=== PATIENT | male | born 1945 | race African-American/Black ===

== ENCOUNTER 2025-04-18 07:52 | Inpatient (IN) | payer MEDICARE, MEDICAID ==
[~2025-04-18] VITALS: Ht 175.3 cm; Wt 61.7 kg
--- NOTE | 2025-04-18 08:19 | ED.PDOC ---
History of Present Illness HPI Comments 79-year-old male with a history of diabetes, hypertension, COPD, any prior stroke, was brought in by emergency services with a chief complaint of generalized weakness, with the associated lightheadedness. EMS states that patient's daughter called emergency services due to patient being more confused than normal. EMS notes the patient was alert oriented x3, but normal baseline is alert oriented x4 prompting the visit to the ED. emergency services also notes with blood sugar on route was 129. Patient denies any nausea, vomiting, diarrhea, chest pain, abdominal pain, or any other associated symptoms, modifiers at this time. Chief Complaint: General Weakness Time Seen by MD: 08:16 Reviewed Notes: Nurses Notes, Medications, Allergies Allergies: Coded Allergies: NO KNOWN ALLERGIES (Unverified , 04/18/25) Information Source: Patient Mode of Arrival: EMS Severity: Moderate Timing: Hours Duration: Since onset, Hours Prehospital treatment: None Past Medical History PAST MEDICAL HISTORY: COPD, CVA, DM, HTN Family History Family History: Reviewed,noncontributory to illness Social History Smoker: Non-Smoker Alcohol: Denies ETOH Use Drugs: Denies Drug Use Lives In: Home Constitutional: denies: chills, diaphoresis, fatigue, fever, malaise, sweats, weakness, others EENTM: denies: blurred vision, double vision, ear bleeding, ear discharge, ear drainage, ear pain, ear ringing, eye pain, eye redness, hearing loss, mouth pain, mouth swelling, nasal discharge, nose bleeding, nose congestion, nose pain, photophobia, tearing, throat pain, throat swelling, voice changes, others Respiratory: denies: cough, hemoptysis, orthopnea, SOB at rest, shortness of breath, SOB with excertion, stridor, wheezing, others Cardiovascular: denies: chest pain, dizzy spells, diaphoresis, Dyspnea on exertion, edema, irregular heart beat, left arm pain, lightheadedness, palpitations, PND, syncope, others Gastrointestinal: denies: abdomen distended, abdominal pain, blood streaked bowels, constipated, diarrhea, dysphagia, difficulty swallowing, hematemesis, melena, nausea, poor appetite, poor fluid intake, rectal bleeding, rectal pain, vomiting, others Genitourinary: denies: burning, dysuria, flank pain, frequency, hematuria, incontinence, penile discharge, penile sore, pain, testicle pain, testicle swelling, urgency, others Neurological: denies: dizziness, fainting, headache, left sided numbness, left sided weakness, numbness, paresthesia, pre-existing deficit, right sided numbness, right sided weakness, seizure, speech problems, tingling, tremors, weakness, others Musculoskeletal: denies: back pain, gout, joint pain, joint swelling, muscle pain, muscle stiffness, neck pain, others Integumetry: denies: bruises, change in color, change in hair/nails, dryness, laceration, lesions, lumps, rash, wounds, others Allergic/Immunocompromised: denies: Difficulty Healing, Frequent Infections, Hi ves, Itching, others Hematologic/Lymphatic: denies: anemia, blood clots, easy bleeding, easy bruising, swollen glands, others Endocrine: denies: excessive hunger, excessive sweating, excessive thirst, excessive urination, flushing, intolerance to cold, intolerance to heat, unexplained weight gain, unexplained weight loss, others Psychiatric: denies: anxiety, bipolar disorder, depression, hopeless, panic disorder, schizophrenia, sleepless, suicidal, others All Other Systems: Reviewed and Negative Physical Exam General Appearance: Moderate Distress, Normal HEENT: Normal ENT Inspection, Pharynx Normal, TMs Normal Neck: Full Range of Motion, Non-Tender, Normal, Normal Inspection Respiratory: Chest Non-Tender, Lungs Clear, No Accessory Muscle Use, No Respiratory Distress, Normal Breath Sounds Cardiovascular: No Edema, No JVD, No Murmur, No Gallop, Normal Peripheral Pulses, Regular Rate/Rhythm Breast Exam: Deferred Gastrointestinal: No Organomegaly, Non Tender, No Pulsatile Mass, Normal Bowel Sounds, Soft Genitalia: Deferred Pelvic: Deferred Rectal: Deferred Extremities: No calf tenderness, Normal capillary refill, Non-tender, No pedal edema, Other (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 Was a procedure done?: No Differential Dx Considerations may include: Anemia Electrolyte imbalance X-Ray, Labs, Meds, VS Vital Signs Date Time Temp Pulse Resp B/P (MAP) Pulse Ox O2 Delivery O2 Flow Rate FiO2 04/18/25 08:02 98.3 90 16 125/72 99 98.3 04/18/25 07:52 90 Patient alert. Came in because of generalized weakness dizziness. Vitals stable. Answering all questions. Possible TIA. Possibly will need MRI. Establish intravenous access. Was given fluids. EKG reviewed does not show any acute changes. Explained to the patient. Continue monitoring. PATIENT: EVANGELIST MISTRY ACCT: [id number] UNIT: [id number] : 1945 LOC: ER ROOM / BED: / AGE / SEX: 79 / M ADM STATUS: REG ER SERVICE 5 ORDERING PHYSICIAN: ZOHREH BARRON MD PROCEDURE(s): CXRP - CHEST PORTABLE REASON: sob ORDER NUMBER(s): [id number], ACCESSION NUMBER(s): [id number] EXAM: XY CHEST PORTABLE HISTORY: sob COMPARISON: None TECHNIQUE: Portable AP view of the chest was performed. FINDINGS: No pneumothorax, consolidative infiltrates, or pulmonary edema. There is blunting of the left costophrenic angle. The heart is borderline enlarged. The aortic arch is calcific. There is lower thoracic dextroscoliosis. There is at least 1 old left rib fracture. IMPRESSION: Blunting of the left costophrenic angle may be due to scarring or small pleural effusion. The lungs are otherwise clear. Time of 1ST Reevaluation: 08:46 Reevaluation 1ST: Unchanged Patient Education/Counseling: Diagnosis, Treatment, Need For Follow Up Family Education/Counseling: No Family Present SEPSIS Sepsis Screen Date sepsis recognized/suspect: Apr 18, 2025 Time Sepsis recognized/suspect: 0752 Recent Procedure: No On Antibiotic Therapy: No Respiratory Rate >20: No Heart Rate >90: No Temp<36 C (96.8 F) or >38.3 C: No SBP <90 or MAP <65 mmHG: No New Acute Mental Status Change: No Is the patient on CPAP, BIPAP,: No Physician Orders Troponin-I Hs (04/18/25 08:16) Complete Blood Count (04/18/25 08:16) Chest Portable (04/18/25 08:16) Urinalysis (04/18/25 08:16) Basic Metabolic Panel (04/18/25 08:16) Sodium Chloride 0.9% (04/18/25 08:30) Electrocardigram (04/18/25 08:46) Vital Signs Date Time Temp Pulse Resp B/P (MAP) Pulse Ox O2 Delivery O2 Flow Rate FiO2 04/18/25 08:02 98.3 90 16 125/72 99 98.3 04/18/25 07:52 90 Departure 1 Departure Time of Disposition: 08:58 Impression: Primary Impression: TIA (transient ischemic attack) Additional Impressions: Generalized weakness Autonomic disorder Disposition: ADMITTED INPATIENT Admit to: Med Surg Condition: Guarded Critical Care Note Critical Care Time?: No Stability Stability form required: No Heart Score Heart Score: Heart Score Response (Comments) Value History Slightly Suspicious 0 EKG Normal 0 Age >65 2 Risk Factors >3 or Hx ASHD 2 Troponin Normal limit 0 Total 4 I personally scribed for ZOHREH BARRON MD ([email or web address]) on 04/18/25 at 08:19. Electronically submitted by Ramin Paniagua ([email or web address]). I personally scribed for ZOHREH BARRON MD ([email or web address]) on 04/18/25 at 09:20. E lectronically submitted by Ramin Paniagua ([email or web address]). ZOHREH BARRON MD Apr 18, 2025 08:19
[2025-04-18] MEDS: SODIUM CHLORIDE 0.9% 1,000 ML IV ONE (08:30)
--- NOTE | 2025-04-18 09:06 | DVH ---
EXAM: XY CHEST PORTABLE HISTORY: sob COMPARISON: None TECHNIQUE: Portable AP view of the chest was performed. FINDINGS: No pneumothorax, consolidative infiltrates, or pulmonary edema. There is blunting of the left costoph renic angle. The heart is borderline enlarged. The aortic arch is calcific. There is lower thoracic d extroscoliosis. There is at least 1 old left rib fracture. IMPRESSION: Blunting of the left costophrenic angle may be due to scarring or small pleural effusion. The lungs are otherwise clear.
[2025-04-18 10:43] LABS: Hematocrit 26.0 % (41.0-53.0); Hemoglobin 8.0 g/dL (13.5-17.5); Mean Corpuscular Hemoglobin 25.6 pg (28.0-32.0); Mean Corpuscular Volume 82.8 fL (80.0-100.0); Nucleated Red Blood Cells % 0.0 %
[2025-04-18 10:47] LABS: Potassium 5.1 mmol/L (3.5-5.1); Sodium 144 mmol/L (136-145)
[2025-04-18 10:48] LABS: Anion Gap 13 (5-15); Calcium 9.8 mg/dL (8.7-10.4); Carbon Dioxide 24 mmol/L (20-31)
[2025-04-18 10:53] LABS: BUN/Creatinine Ratio 22.8 (10.0-20.0); Glucose 102 mg/dL (74-106)
[2025-04-18 11:03] LABS: Blood Urea Nitrogen 46 mg/dL (9-23); Chloride 107 mmol/L (98-107)
--- NOTE | 2025-04-18 12:25 | DVH ---
EXAM: CT HEAD WITHOUT CONTRAST INDICATION: weakness with aloc TECHNIQUE: CT of the head without intravenous contrast. Radiation Dose : 1. Head: CT Dose: CTDI volume is 56.36 mGy. Dose-length product is 998.18 mGy*cm The dose indicators for CT are the volume Computed Tomography (CT) Dose Index (CTDIvol) and the Dose Length Product (DLP), and are measured in units of mGy and mGy-cm, respectively. These indicators are not patient dose, but values generated from the CT scanner acquisition factors. The report includes radiation exposure data for exposures received during this examination. COMPARISON: None FINDINGS: There is no evidence of acute intracranial hemorrhage, extra-axial collection, mass effect, midline s hift, herniation or hydrocephalus. The ventricles, sulci and cisterns are age appropriate. The potter-white differentiation is intact. Patchy periventricular and subcortical white matter hypoattenuation is nonspecific but may be related to small vessel ischemic disease. The visualized paranasal sinuses and mastoid air cells are clear. The surrounding soft tissues and osseous structures are unremarkable. Chronic appearing deformity of the right lateral calvarium possibly from prior trauma. IMPRESSION: No acute intracranial abnormality. Radiation optimization: All CT scans at this facility use at least one of these dose optimization marilin hniques: automated exposure control mA and/or kV adjustment per patient size (includes targeted exam s where dose is matched to clinical indication) or iterative reconstruction.
[2025-04-18] MEDS ORDERED: APIX5TAB PO (14:12)
[2025-04-18] MEDS ORDERED: OMEP1CAP70 PO (14:12)
[2025-04-18] MEDS ORDERED: LOSA-534 PO (14:12)
[2025-04-18] MEDS ORDERED: DEXTROSE (50%) 50ML SYRG IV PRN (14:15)
[2025-04-18] MEDS ORDERED: ONDANSETRON HCL 4 MG/2 ML VIAL IV PRN (14:15)
--- NOTE | 2025-04-18 14:22 | DVHHP2 ---
History of Present Illness Reason for Visit: Generalized weakness History of Present Illness Serjio Dietz is an 79-year-old male with past medical history of COPD, CVA, diabetes, hypertension, right BKA, and ex tobacco use who presents to the ED with generalized weakness and lightheadedness. Patient reports that he was at home and EMS was called for assistance. Patient reports that he is on home oxygen 4.5L nasal cannula continuously. Upon examination patient is in a wheelchair in his currently on 3 L nasal cannula. Patient also reports that he is compliant with his medications. He reports that he uses a front wheel walker. Patient denies any recent trauma or injury, recent travels, recent ingestion of spoiled food, recent sick contacts, chest pain, shortness of breath, fever, chills, dizziness, abdominal pain, nausea, vomiting, diarrhea, or urinary symptoms. Cardiovascular: HTN Pulmonary: COPD PORTFOLIO SPECIALIST: CVA Endocrine: Diabetes Past Surgical History: Other (Right BKA) Smoke: Quit ALCOHOL: none Drugs: None Lives: with Family Domestic Violence: Neg Review of Systems Constitutional: Yes: Weakness Allergies: Coded Allergies: NO KNOWN ALLERGIES (Unverified , 04/18/25) Medications Current Medications Medications Dose Ordered Sig/Randall Route Start Time Stop Time Status Last Admin Dose Admin Ondansetron HCl 4 mg Q4HP PRN IV 04/18/25 14:15 UNV Acetaminophen 650 mg Q6HP PRN PO 04/18/25 14:15 UNV Diagnostic Test (Pha) 1 strip ACHS 04/18/25 17:00 UNV Insulin Human Regular ACHS SC 04/18/25 17:00 UNV Dextrose 50 ml UD PRN IV 04/18/25 14:15 UNV Furosemide 40 mg DAILY IV 04/18/25 14:15 UNV Apixaban 5 mg BID PO 04/18/25 22:00 UNV Patient Own Medication 1 cap DAILY PO 04/19/25 10:00 UNV Exam Vital Signs Vital Signs Date Time Temp Pulse Resp B/P (MAP) Pulse Ox O2 Delivery O2 Flow Rate FiO2 04/18/25 08:02 98.3 90 16 125/72 99 98.3 General Appearance: Alert, Oriented X3, Cooperative, No acute distress HEENT: Atraumatic, PERRLA, EOMI Respiratory: Normal air movement Cardiovascular: Regular rate, Normal S1, Normal S2, No murmurs Abdominal: Normal bowel sounds, Soft Extremities: Other (Right BKA) Skin: No significant lesion Neuro: Normal speech, Normal tone, Sensation intact Psych/Mental Status: Mental status NL, Mood NL Labs/Xrays Labs Test 04/18/25 10:25 Range/Units White Blood Count 8.7 4.4-10.8 10^3/uL Red Blood Count 3.14 L 4.5-5.90 10^6/uL Hemoglobin 8.0 L 13.5-17.5 g/dL Hematocrit 26.0 L 41.0-53.0 % Mean Corpuscular Volume 82.8 80.0-100.0 fL Mean Corpuscular Hemoglobin 25.6 L 28.0-32.0 pg Mean Corpuscular Hemoglobin Concent 30.9 L 32.0-36.0 g/dL Red Cell Distribution Width 18.2 H 11.8-14.3 % Platelet Count 396 140-450 10^3/uL Mean Platelet Volume 7.3 6.9-10.8 fL Neutrophils (%) (Auto) 66.5 37.0-80.0 % Lymphocytes (%) (Auto) 16.5 10.0-50.0 % Monocytes (%) (Auto) 9.6 0.0-12.0 % Eosinophils (%) (Auto) 6.7 0.0-7.0 % Basophils (%) (Auto) 0.7 0.0-2.0 % Neutrophils # (Auto) 5.8 1.6-8.6 10 ^3/uL Lymphocytes # (Auto) 1.4 0.4-5.4 10 ^3/uL Monocytes # (Auto) 0.8 0-1.3 10 ^3/uL Eosinophils # (Auto) 0.6 0-0.8 10 ^3/uL Basophils # (Auto) 0.1 0-0.2 10 ^3/uL Nucleated Red Blood Cells 0.0 % Sodium Level 144 136-145 mmol/L Potassium Level 5.1 3.5-5.1 mmol/L Chloride Level 107 98-107 mmol/L Carbon Dioxide Level 24 20-31 mmol/L Anion Gap 13 5-15 Blood Urea Nitrogen 46 H 9-23 mg/dL Creatinine 2.02 H 0.700-1.30 mg/dL Glomerular Filtration Rate Calc 33 >90 mL/min BUN/Creatinine Ratio 22.8 H 10.0-20.0 Serum Glucose 102 74-106 mg/dL Calcium Level 9.8 8.7-10.4 mg/dL Troponin I High Sensitivity 25 </=54 ng/L EXAM: CT HEAD WITHOUT CONTRAST INDICATION: weakness with aloc TECHNIQUE: CT of the head without intravenous contrast. Radiation Dose : 1. Head: CT Dose: CTDI volume is 56.36 mGy. Dose-length product is 998.18 mGy*cm The dose indicators for CT are the volume Computed Tomography (CT) Dose Index (CTDIvol) and the Dose Length Product (DLP), and are measured in units of mGy and mGy-cm, respectively. These indicators are not patient dose, but values generated from the CT scanner acquisition factors. The report includes radiation exposure data for exposures received during this examination. COMPARISON: None FINDINGS: There is no evidence of acute intracranial hemorrhage, extra-axial collection, mass effect, midline shift, herniation or hydrocephalus. The ventricles, sulci and cisterns are age appropriate. The potter-white differentiation is intact. Patchy periventricular and subcortical white matter hypoattenuation is nonspecific but may be related to small vessel ischemic disease. The visualized paranasal sinuses and mastoid air cells are clear. The surrounding soft tissues and osseous structures are unremarkable. Chronic appearing deformity of the right lateral calvarium possibly from prior trauma. IMPRESSION: No acute intracranial abnormality. EXAM: XY CHEST PORTABLE HISTORY: sob COMPARISON: None TECHNIQUE: Portable AP view of the chest was performed. FINDINGS: No pneumothorax, consolidative infiltrates, or pulmonary edema. There is blunting of the left costophrenic angle. The heart is borderline enlarged. The aortic arch is calcific. There is lower thoracic dextroscoliosis. There is at least 1 old left rib fracture. IMPRESSION: Blunting of the left costophrenic angle may be due to scarring or small pleural effusion. The lungs are otherwise clear. SEPSIS Sepsis Screen Date sepsis recognized/suspect: Apr 18, 2025 Time Sepsis recognized/suspect: 0752 Recent Procedure: No On Antibiotic Therapy: No Respiratory Rate >20: No Heart Rate >90: No Temp<36 C (96.8 F) or >38.3 C: No SBP <90 or MAP <65 mmHG: No New Acute Mental Status Change: No Is the patient on CPAP, BIPAP,: No Physician Orders Chest Portable (04/18/25 08:16) Urinalysis (04/18/25 08:16) Electrocardigram (04/18/25 08:46) Head Without Contrast (04/18/25 11:37) Admit (04/18/25 14:07) Allergies (04/18/25 14:07) Code Status (04/18/25 14:07) Oxygen Per Hour (04/18/25 14:07) Ondansetron Hcl (Zofran) (04/18/25 14:15) Complete Blood Count (04/19/25 04:00) Comprehensive Metabolic Panel (04/19/25 04:00) Cardiac Diet-2gna,Lofat,Lochol (04/18/25 Dinner) Acetaminophen Tablet (Tylenol Tablet) (04/18/25 14:15) Sequential Compression Device (04/18/25 ) Glucose Blood (Accu-Chek Comfort Curve T (04/18/25 17:00) Insulin R (Human) (Insulin R) (04/18/25 17:00) Dextrose 50% Syringe (04/18/25 14:15) Hemoglobin A1c (04/18/25 14:07) Furosemide Injection (Lasix Injection) (04/18/25 14:15) Apixaban (Eliquis) (04/18/25 22:00) (Nf) Omeprazole (Omeprazole Dr) (04/19/25 10:00) Vital Signs Date Time Temp Pulse Resp B/P (MAP) Pulse Ox O2 Delivery O2 Flow Rate FiO2 04/18/25 08:02 98.3 90 16 125/72 99 98.3 04/18/25 07:52 90 Laboratory Tests Test 04/18/25 10:25 White Blood Count 8.7 10^3/uL (4.4-10.8) Assessment/Plan Assessment/Plan Assessment Generalized weakness likely due to anemia ANGEL Acute hypoxic respiratory failure History of COPD History of CVA History of diabetes History of hypertension History of right BKA Ex tobacco use Plan Admit to [facility] Supportive oxygen Type and screen Transfuse PRBCs for hemoglobin less than 7.0 Iron panel Reticulocyte count Haptoglobin [place] test - direct and indirect Hemoglobin A1c ISS and Accu-Cheks CT head noted UA NS 1 L given in ED EKG UA Chest x-ray noted Troponin noted Diet Home medications reconciled DVT prophylaxis-patient on Eliquis PUD prophylaxis-not indicated no history of GERD or GI bleed Discussed plan of care with patient and nurse Counseled patient on continuance of cessation of tobacco use [id number] Behavior change smoking greater than 10 minutes about use of other options also gave option of nicotine patch [id number] Preventive counseling healthy eating habits, physical activity, and regular checkups Plan discussed with: Patient My Orders Orders - VALENTINA NÚÑEZ Procedure Category Date Status Time Head Without Contrast CT 04/18/25 Resulted 11:37 Admit ADMIT 04/18/25 Transmitted 14:07 Allergies NINA 04/18/25 In Process 14:07 Code Status CODE 04/18/25 Transmitted 14:07 Oxygen Per Hour RT 04/18/25 Transmitted 14:07 Ondansetron Hcl PHA 04/18/25 Logged (Zofran) 14:15 Complete Blood Count LAB 04/19/25 Verified 04:00 Comprehensive LAB 04/19/25 Verified Metabolic Panel 04:00 Cardiac DIET 04/18/25 Transmitted Diet-2gna,Lofat,Lochol Dinner Acetaminophen Tablet PHA 04/18/25 Logged (Tylenol Tablet) 14:15 Sequential NINA 04/18/25 In Process Compression Device Glucose Blood PHA 04/18/25 Logged (Accu-Chek Comfort 17:00 Insulin R (Human) PHA 04/18/25 Logged (Insulin R) 17:00 Dextrose 50% Syringe PHA 04/18/25 Logged 14:15 Hemoglobin A1c LAB 04/18/25 Logged 14:07 Furosemide Injection PHA 04/18/25 Logged (Lasix Injection) 14:15 Apixaban (Eliquis) PHA 04/18/25 Logged 22:00 (Nf) Omeprazole PHA 04/19/25 Logged (Omeprazole Dr) 10:00 Date of Service: Apr 18, 2025 Billing Provider: VALENTINA NÚÑEZ Common Visit Codes: 56488-JAGLQJA INP/OBS CARE (HIGH) Secondary Visit Codes: [id number] COUNSELING IND, 48904-FSUJP CHNG SMOKING >10MIN VALENTINA NÚÑEZ Apr 18, 2025 14:22
[2025-04-18 16:07] VITALS: PULSE 86; RESP 16; O2SAT 96
[2025-04-18 16:26] VITALS: BP 126/79; PULSE 78; PULSE 79; RESP 18; TEMP 97.9; O2SAT 96
[2025-04-18 17:00] VITALS: BP 121/84; PULSE 94; RESP 17; TEMP 97.3; O2SAT 95
[2025-04-18] MEDS: InsuLIN REG 1unit/0.01ml Soln (100units/ml) SC SCH (17:00)
[2025-04-18] MEDS: ACCU-CHEK COMFORT CURVE STRIP VI SCH (17:18)
[2025-04-18 18:30] LABS: Iron 16.0 ug/dL (65-175)
[2025-04-18 18:31] LABS: Total Iron Binding Capacity 421.0 ug/dL (250-425)
[2025-04-18 20:00] VITALS: PULSE 97; RESP 18; O2SAT 99
[2025-04-18 21:00] VITALS: BP 152/77; PULSE 97; RESP 15; TEMP 97.6; O2SAT 99
[2025-04-18] MEDS: APIXABAN 5 MG TAB PO SCH (22:00)
[2025-04-19] VITALS (9 sets, daily range): BP systolic 116–140; BP diastolic 47–67; PULSE 65–100; RESP 14–18; TEMP 97.5–98.6; O2SAT 90–100
[2025-04-19 00:43] LABS: Urine Protein, UAD Negative (Negative)
[2025-04-19 06:11] LABS: Hematocrit 24.6 % (41.0-53.0); Hemoglobin 7.8 g/dL (13.5-17.5); Mean Corpuscular Hemoglobin 25.9 pg (28.0-32.0); Mean Corpuscular Volume 81.5 fL (80.0-100.0); Nucleated Red Blood Cells % 0.1 %
[2025-04-19 06:17] LABS: Alanine Aminotransferase 14 U/L (7-40); Alkaline Phosphatase 62 U/L (46-116); Anion Gap 13 (5-15); BUN/Creatinine Ratio 20.3 (10.0-20.0); Calcium 9.9 mg/dL (8.7-10.4); Carbon Dioxide 24 mmol/L (20-31); Chloride 106 mmol/L (98-107); Glucose 98 mg/dL (74-106); Potassium 4.3 mmol/L (3.5-5.1); Sodium 143 mmol/L (136-145); Total Protein 8.0 g/dL (5.7-8.2)
[2025-04-19 06:18] LABS: Albumin 4.8 g/dL (3.2-4.8); Bilirubin, Total 0.2 mg/dL (0.2-1.0); Blood Urea Nitrogen 31 mg/dL (9-23)
[2025-04-19] MEDS: PANTOPRAZOLE 40 MG TAB PO SCH (08:49)
[2025-04-19] MEDS: FUROSEMIDE 40 MG/4 ML VIAL IV SCH (08:51)
[2025-04-19] MEDS: DOCUSATE SOD 100 MG CAP PO ONE (16:46)
--- NOTE | 2025-04-19 18:51 | DVHPN2 ---
Subjective As per sitter at bedside patient was earlier awake alert oriented. Currently patient just woke up he does not know where he is. 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 Medications Current Medications Medications Dose Ordered Sig/Randall Route Start Time Stop Time Status Last Admin Dose Admin Ondansetron HCl 4 mg Q4HP PRN IV 04/18/25 14:15 Acetaminophen 650 mg Q6HP PRN PO 04/18/25 14:15 Diagnostic Test (Pha) 1 strip ACHS 04/18/25 17:00 04/19/25 16:47 1 STRIP Insulin Human Regular ACHS SC 04/18/25 17:00 Dextrose 50 ml UD PRN IV 04/18/25 14:15 Furosemide 40 mg DAILY IV 04/18/25 14:15 Apixaban 5 mg BID PO 04/18/25 22:00 04/19/25 08:49 5 MG Pantoprazole Sodium 40 mg DAILY PO 04/19/25 10:00 04/19/25 08:49 40 MG Docusate Sodium 100 mg BID PO 04/19/25 22:00 Laboratory Results Laboratory Tests 04/19/25 05:19 Chemistry Test 04/19/25 05:19 Albumin 4.8 g/dL (3.2-4.8) Calcium Level 9.9 mg/dL (8.7-10.4) Total Protein 8.0 g/dL (5.7-8.2) LFT Test 04/19/25 05:19 Alanine Aminotransferase (ALT) 14 U/L (7-40) Alkaline Phosphatase 62 U/L (46-116) Aspartate Amino Transferase (AST) 20 U/L (13-40) Total Bilirubin 0.2 mg/dL (0.2-1.0) Urinalysis Test 04/18/25 23:59 Urine Color Colorless (Yellow) Urine Clarity Clear (Clear) Urine pH 5.0 (5.0-9.0) Urine Specific [place] 1.015 (1.001-1.035) Urine Protein Negative (Negative) Urine Ketones Negative (Negative) Urine Blood Negative /uL (Negative) Urine Nitrite Negative (Negative) Urine Bilirubin Negative (Negative) Urine Urobilinogen Normal mg/dL (Negative) Urine Leukocyte Esterase 2+ /uL (Negative) Urine RBC 1 /hpf (0 - 3) Urine Microscopic WBC 18 /HPF (0-3) H Urine Squamous Epithelial Cells Few /hpf (<5) Urine Bacteria Many /hpf (None Seen) H Urine Hyaline Casts Few /lpf (0 - 2) Urine Mucus Few (None Seen) Urine Glucose Normal mg/dL (Normal) Assessment/Plan Assessment/Plan 79-year-old male with a known history of chronic respiratory failure on home O2, history of CVA, diabetes type 2, hypertension, history of right BKA presented to the hospital with a generalized weakness and altered mental status found to have 1. Generalized weakness 2. Acute delirium ruled out early cognitive decline 3. Acute on chronic hypoxic respiratory failure 4. COPD 5. History of CVA 6. Diabetes mellitus type 2 7. Hypertension 8. Chronic tobacco use disorder by history -continue [facility], physical therapy evaluation and treatment, social worker clinical for home health home safety evaluation upon discharge. Plan discussed with: Patient, Other (Patient's bedside RN.) My Orders Orders - REN WAGNER MD Procedure Category Date Status Time Docusate Sodium PHA 04/19/25 In Process Capsule (Colace 22:00 Date of Service: Apr 19, 2025 Billing Provider: REN WAGNER MD Common Visit Codes: [id number] INP/OBS CARE(MOD) REN WAGNER MD Apr 19, 2025 18:51
[2025-04-19] MEDS: DOCUSATE SOD 100 MG CAP PO SCH (20:44)
[2025-04-19] MEDS: ALBUTEROL SULF 2.5 MG/0.5ML(0.5%) NEB SOLN NEB SCH (22:17)
[2025-04-19] MEDS: IPRATROPIUM BROM 0.5 MG/2.5ML INH SOL NEB SCH (22:18)
[2025-04-20] VITALS (18 sets, daily range): BP systolic 111–133; BP diastolic 40–59; PULSE 64–93; RESP 16–18; TEMP 97.7–98.6; O2SAT 93–100
[2025-04-20] MEDS: ACETAMINOPHEN 325 MG TAB PO PRN (04:51)
--- NOTE | 2025-04-20 12:59 | DVHPN2 ---
Subjective Vision daughter is at bedside. As per her patient is a little bit more alert but not at his baseline yet. 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 Medications Current Medications Medications Dose Ordered Sig/Randall Route Start Time Stop Time Status Last Admin Dose Admin Ondansetron HCl 4 mg Q4HP PRN IV 04/18/25 14:15 Acetaminophen 650 mg Q6HP PRN PO 04/18/25 14:15 04/20/25 04:51 650 MG Diagnostic Test (Pha) 1 strip ACHS 04/18/25 17:00 04/20/25 11:31 1 STRIP Insulin Human Regular ACHS SC 04/18/25 17:00 Dextrose 50 ml UD PRN IV 04/18/25 14:15 Furosemide 40 mg DAILY IV 04/18/25 14:15 Apixaban 5 mg BID PO 04/18/25 22:00 04/20/25 09:08 5 MG Pantoprazole Sodium 40 mg DAILY PO 04/19/25 10:00 04/20/25 09:08 40 MG Docusate Sodium 100 mg BID PO 04/19/25 22:00 04/20/25 09:08 100 MG Albuterol 2.5 mg Q4HWA NEB 04/19/25 22:00 04/20/25 09:28 2.5 MG Ipratropium [place] 0.5 mg Q4HWA NEB 04/19/25 22:00 04/20/25 09:28 0.5 MG Laboratory Results Laboratory Tests 04/19/25 05:19 Urinalysis Test 04/18/25 23:59 Urine Color Colorless (Yellow) Urine Clarity Clear (Clear) Urine pH 5.0 (5.0-9.0) Urine Specific [place] 1.015 (1.001-1.035) Urine Protein Negative (Negative) Urine Ketones Negative (Negative) Urine Blood Negative /uL (Negative) Urine Nitrite Negative (Negative) Urine Bilirubin Negative (Negative) Urine Urobilinogen Normal mg/dL (Negative) Urine Leukocyte Esterase 2+ /uL (Negative) Urine RBC 1 /hpf (0 - 3) Urine Microscopic WBC 18 /HPF (0-3) H Urine Squamous Epithelial Cells Few /hpf (<5) Urine Bacteria Many /hpf (None Seen) H Urine Hyaline Casts Few /lpf (0 - 2) Urine Mucus Few (None Seen) Urine Glucose Normal mg/dL (Normal) Assessment/Plan Assessment/Plan 79-year-old male with a known history of chronic respiratory failure on home O2, history of CVA, diabetes type 2, hypertension, history of right BKA presented to the hospital with a generalized weakness and altered mental status found to have 1. Generalized weakness 2. Acute delirium ruled out early cognitive decline 3. Acute on chronic hypoxic respiratory failure 4. COPD 5. History of CVA 6. Diabetes mellitus type 2 7. Hypertension 8. Chronic tobacco use disorder by history 9. 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 -p.o. antibiotics for urinary tract infection. Plan discussed with: Patient, Daughter My Orders Orders - REN WAGNER MD Procedure Category Date Status Time Docusate Sodium PHA 04/19/25 In Process Capsule (Colace 22:00 Albuterol Medneb PHA 04/19/25 In Process (Ventolin Medneb) 22:00 Ipratropium Medneb PHA 04/19/25 In Process (Atrovent Medneb) 22:00 * Pharmacy Tech Customer Service CONS 04/20/25 Transmitted Consult Date of Service: Apr 20, 2025 Billing Provider: REN WAGNER MD Common Visit Codes: [id number] INP/OBS CARE(MOD) REN WAGNER MD Apr 20, 2025 12:59
[2025-04-20] MEDS: CEPHALEXIN 250 MG CAP PO SCH (14:26)
[2025-04-21] VITALS (16 sets, daily range): BP systolic 99–135; BP diastolic 46–68; PULSE 68–106; RESP 12–20; TEMP 97.3–98.2; O2SAT 90–100
--- NOTE | 2025-04-21 08:20 | ECG ---
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
[2025-04-21] MEDS: FUROSEMIDE 40 MG TAB PO SCH (09:31)
[2025-04-21] MEDS ORDERED: CIPR-273 PO (15:56)
--- NOTE | 2025-04-21 15:57 | DVHDS2 ---
Discharge Summary Date of Admission Apr 18, 2025 at 14:07 Date of Discharge: Apr 22, 2025 Labs/Diagnostic Data: Laboratory Results Test 04/21/25 10:48 04/19/25 05:19 04/18/25 23:59 04/18/25 15:42 POC Glucose 157 mg/dl (70-106) White Blood Count 7.4 10^3/uL (4.4-10.8) Red Blood Count 3.01 10^6/uL (4.5-5.90) Hemoglobin 7.8 g/dL (13.5-17.5) Hematocrit 24.6 % (41.0-53.0) Mean Corpuscular Volume 81.5 fL (80.0-100.0) Mean Corpuscular Hemoglobin 25.9 pg (28.0-32.0) Mean Corpuscular Hemoglobin Concent 31.7 g/dL (32.0-36.0) Red Cell Distribution Width 17.8 % (11.8-14.3) Platelet Count 401 10^3/uL (140-450) Mean Platelet Volume 7.2 fL (6.9-10.8) Neutrophils (%) (Auto) 64.5 % (37.0-80.0) Lymphocytes (%) (Auto) 17.8 % (10.0-50.0) Monocytes (%) (Auto) 10.2 % (0.0-12.0) Eosinophils (%) (Auto) 6.6 % (0.0-7.0) Basophils (%) (Auto) 0.9 % (0.0-2.0) Neutrophils # (Auto) 4.8 10 ^3/uL (1.6-8.6) Lymphocytes # (Auto) 1.3 10 ^3/uL (0.4-5.4) Monocytes # (Auto) 0.8 10 ^3/uL (0-1.3) Eosinophils # (Auto) 0.5 10 ^3/uL (0-0.8) Basophils # (Auto) 0.1 10 ^3/uL (0-0.2) Nucleated Red Blood Cells 0.1 % Sodium Level 143 mmol/L (136-145) Potassium Level 4.3 mmol/L (3.5-5.1) Chloride Level 106 mmol/L (98-107) Carbon Dioxide Level 24 mmol/L (20-31) Anion Gap 13 (5-15) Blood Urea Nitrogen 31 mg/dL (9-23) Creatinine 1.53 mg/dL (0.700-1.30) Glomerular Filtration Rate Calc 46 mL/min (>90) BUN/Creatinine Ratio 20.3 (10.0-20.0) Serum Glucose 98 mg/dL (74-106) Calcium Level 9.9 mg/dL (8.7-10.4) Total Bilirubin 0.2 mg/dL (0.2-1.0) Aspartate Amino Transferase (AST) 20 U/L (13-40) Alanine Aminotransferase (ALT) 14 U/L (7-40) Alkaline Phosphatase 62 U/L (46-116) Total Protein 8.0 g/dL (5.7-8.2) Albumin 4.8 g/dL (3.2-4.8) Urine Color Colorless (Yellow) Urine Clarity Clear (Clear) Urine pH 5.0 (5.0-9.0) Urine Specific [place] 1.015 (1.001-1.035) Urine Protein Negative (Negative) Urine Ketones Negative (Negative) Urine Blood Negative /uL (Negative) Urine Nitrite Negative (Negative) Urine Bilirubin Negative (Negative) Urine Urobilinogen Normal mg/dL (Negative) Urine Leukocyte Esterase 2+ /uL (Negative) Urine RBC 1 /hpf (0 - 3) Urine Microscopic WBC 18 /HPF (0-3) Urine Squamous Epithelial Cells Few /hpf (<5) Urine Bacteria Many /hpf (None Seen) Urine Hyaline Casts Few /lpf (0 - 2) Urine Mucus Few (None Seen) Urine Glucose Normal mg/dL (Normal) Reticulocyte Count (auto) 1.05 % (0.5-1.5) Iron Level 16 ug/dL (65-175) Total Iron Binding Capacity 421 ug/dL (250-425) Percent Iron Saturation 3.8 % (20-55) Test 04/18/25 10:25 Hemoglobin A1c 5.6 % A1C (<5.7) Troponin I High Sensitivity 25 ng/L (</=54) Other Laboratory Tests 04/19/25 05:19 Brief Hx & Hospital Course: Serjio Dietz is an 79-year-old male with past medical history of COPD, CVA, diabetes, hypertension, right BKA, and ex tobacco use who presents to the ED with generalized weakness and lightheadedness. Patient reports that he was at home and EMS was called for assistance. Patient reports that he is on home oxygen 4.5L nasal cannula continuously. Upon examination patient is in a wheelchair in his currently on 3 L nasal cannula. Patient also reports that he is compliant with his medications. He reports that he uses a front wheel walker. Patient denies any recent trauma or injury, recent travels, recent ingestion of spoiled food, recent sick contacts, chest pain, shortness of breath, fever, chills, dizziness, abdominal pain, nausea, vomiting, diarrhea, or urinary symptoms. He is admitted and received empiric treatment with the IV antibiotics hydration and physical therapy. Patient's urinalysis showed a possible UTI felt causing his symptoms. His urine cultures showed mixed yudy. Patient remained afebrile. White cell count is normal. Patient's symptoms have improved. Therefore it is felt he could be safely discharged home. Patient is advised to continue the medications per his discharge med rec list and have a close follow up with his PCP. I have talked with the patient/family members/daughter regarding patient's hospital diagnosis, treatment he received, discharge medications including but not limited to side effects, discharge instructions and and follow-up plan of care. They have verbalized understanding of this and agree with the care plan as outlined. Condition at Discharge: Stable Final Diagnosis/Problems List 1. Generalized weakness 2. Acute delirium ruled out early cognitive decline 3. Acute on chronic hypoxic respiratory failure 4. COPD 5. History of CVA 6. Diabetes mellitus type 2 7. Hypertension 8. Chronic tobacco use disorder by history 9. Urinary tract infection Discharge Disposition: Home Discharge Instruct/Medications Diet: Consistent carbohydrate, Cardiac 2g Na,low cholest Activity: No Restrictions, As Tolerated Follow Up/Referral: Your primary care physician next week and to follow up for urinary tract infection with a repeat urine cultures Medications: Finish the antibiotic as prescribed and other home medications per discharge med reconciliation list Scheduled Apixaban Base (Eliquis), 1 TAB PO BID, (Reported) Ciprofloxacin Hcl (Cipro), 250 MG PO BID Losartan Potassium (Losartan Potassium), 1 TAB PO DAILY, (Reported) Omeprazole (Omeprazole Dr), 1 CAP PO DAILY, (Reported) Discharge Statement: "Patient was advised to return to the ER or call 911 if any headaches, dizziness, shortness of breath, chest pain, abdominal pain, bleeding, fevers, or worsening of medical condition. Patient was counseled about treatment plan, medications, possible side effects, patientverbalized understanding. All questions were answered to the best of my ability. This discharge took greater then 30 minutes in planning, reviewing documentation, counseling the patient, and discussing with other team members." ASSESSMENT ASSESSMENT Assessment 1. Generalized weakness 2. Acute delirium ruled out early cognitive decline 3. Acute on chronic hypoxic respiratory failure 4. COPD 5. History of CVA 6. Diabetes mellitus type 2 7. Hypertension 8. Chronic tobacco use disorder by history 9. Urinary tract infection Date of Service: Apr 22, 2025 Billing Provider: GAYLA BESS MD Common Visit Codes: [id number]-NKO/OBS DISCH DAY <30MIN, 48980-USC/OBS DISCH DAY >30min GAYLA BESS MD Apr 21, 2025 15:57
--- NOTE | 2025-04-21 22:36 | DVHPN2 ---
Subjective In bed. He denies any complaints. Changes from previous H/P or p: No Changes Objective Vitals Vital Signs Date Time Temp Pulse Resp B/P (MAP) Pulse Ox O2 Delivery O2 Flow Rate FiO2 04/21/25 21:00 68 18 135/56 (82) 90 04/21/25 20:10 Nasal Cannula* 3 32 04/21/25 17:00 97.9 97.9 Intake/Output Intake and Output 04/21/25 07:00 Intake Total 920 ml Output Total 200 ml Balance 720 ml Intake Oral 920 ml Output Urine Total 200 ml # Voids 3 # Bowel Movements 2 Exam Alert awake oriented to place and person comfortable in bed without any acute distress. HEENT neck supple no JVD. Heart regular rate and rhythm S1-S2. Lungs fair air movement without rales wheezes. Abdomen soft positive bowel sounds. Extremities no edema positive pulses. Medications Current Medications Medications Dose Ordered Sig/Randall Route Start Time Stop Time Status Last Admin Dose Admin Ondansetron HCl 4 mg Q4HP PRN IV 04/18/25 14:15 Acetaminophen 650 mg Q6HP PRN PO 04/18/25 14:15 04/20/25 04:51 650 MG Diagnostic Test (Pha) 1 strip ACHS 04/18/25 17:00 04/21/25 21:31 1 STRIP Insulin Human Regular ACHS SC 04/18/25 17:00 04/21/25 11:08 2 UNITS Dextrose 50 ml UD PRN IV 04/18/25 14:15 Apixaban 5 mg BID PO 04/18/25 22:00 04/21/25 21:29 5 MG Pantoprazole Sodium 40 mg DAILY PO 04/19/25 10:00 04/21/25 09:31 40 MG Docusate Sodium 100 mg BID PO 04/19/25 22:00 04/21/25 21:29 100 MG Albuterol 2.5 mg Q4HWA NEB 04/19/25 22:00 04/21/25 18:17 2.5 MG Ipratropium [place] 0.5 mg Q4HWA NEB 04/19/25 22:00 04/21/25 18:17 0.5 MG Cephalexin 500 mg TID PO 04/20/25 14:00 04/21/25 21:28 500 MG Furosemide 40 mg DAILY PO 04/21/25 10:00 04/21/25 09:31 40 MG Laboratory Results Laboratory Tests 04/19/25 05:19 Urinalysis Test 04/18/25 23:59 Urine Color Colorless (Yellow) Urine Clarity Clear (Clear) Urine pH 5.0 (5.0-9.0) Urine Specific [place] 1.015 (1.001-1.035) Urine Protein Negative (Negative) Urine Ketones Negative (Negative) Urine Blood Negative /uL (Negative) Urine Nitrite Negative (Negative) Urine Bilirubin Negative (Negative) Urine Urobilinogen Normal mg/dL (Negative) Urine Leukocyte Esterase 2+ /uL (Negative) Urine RBC 1 /hpf (0 - 3) Urine Microscopic WBC 18 /HPF (0-3) H Urine Squamous Epithelial Cells Few /hpf (<5) Urine Bacteria Many /hpf (None Seen) H Urine Hyaline Casts Few /lpf (0 - 2) Urine Mucus Few (None Seen) Urine Glucose Normal mg/dL (Normal) Microbiology Microbiology Date/Time Source Procedure Growth Status 04/20/25 17:00 Voided Urine Urine Culture - Preliminary Resulted Assessment/Plan Assessment/Plan 1. Generalized weakness 2. Acute delirium ruled out early cognitive decline 3. Acute on chronic hypoxic respiratory failure 4. COPD 5. History of CVA 6. Diabetes mellitus type 2 7. Hypertension 8. Chronic tobacco use disorder by history 9. Urinary tract infection -continue [facility], physical therapy evaluation and treatment, community mental health social worker for home health home safety evaluation upon discharge. -p.o. antibiotics for urinary tract infection. Plan discussed with: Patient, Other My Orders Orders - GAYLA BESS MD Procedure Category Date Status Time Pt Request For Service PT 04/21/25 Logged 13:18 Follow Up In 2 Wk ORDERS 04/21/25 Transmitted Upon D/C 15:56 Discharge DISCHARGE 04/21/25 Transmitted 16:06 Communication Order ORDERS 04/21/25 Transmitted 16:06 Date of Service: Apr 21, 2025 Billing Provider: GAYLA BESS MD Common Visit Codes: [id number] INP/OBS CARE(MOD) GAYLA BESS MD Apr 21, 2025 22:36
[2025-04-22] VITALS (11 sets, daily range): BP systolic 110–136; BP diastolic 48–64; PULSE 80–104; RESP 18–22; TEMP 36.6; O2SAT 90–100
== END 2025-04-22 14:50 | disposition home health service (06) | DRG 682 ==
LOC: EDBD 07:52 → ER 07:52 → OVERFLOW 14:07 → WEST WING 16:23
PROVIDERS: ADMIT Hospitalist; ATTEND Hospitalist
DX: N17.0 Acute kidney failure with tubular necrosis (principal); J96.21 Acute and chronic respiratory failure with hypoxia; N39.0 Urinary tract infection, site not specified; J44.9 Chronic obstructive pulmonary disease, unspecified; E11.9 Type 2 diabetes mellitus without complications; G90.89 Other disorders of autonomic nervous system; I10 Essential (primary) hypertension; Z86.73 Personal history of transient ischemic attack (TIA), and cerebral infarction without residual deficits; Z99.81 Dependence on supplemental oxygen; Z89.511 Acquired absence of right leg below knee; Z87.891 Personal history of nicotine dependence
CPT/HCPCS: 36415; 70450; 71045; 80048; 80053; 81001; 82962; 83010; 83036; 83540; 83550; 84484; 85025; 85045; 86850; 86880; 86900; 86901; 87086; 93005; 94640; 97163; G0378; J1815

== ENCOUNTER 2025-06-04 13:56 | Inpatient (IN) | payer MEDICARE, MEDICAID ==
[~2025-06-04] VITALS: Ht 172.7 cm; Wt 64.0 kg
[~2025-06-04 13:56] MED LIST: APIX5TAB PO; CIPR-273 PO; LOSA-534 PO; OMEP1CAP70 PO
[2025-06-04 14:30] VITALS: PULSE 95; RESP 18; O2SAT 100
[2025-06-04 15:06] LABS: Hematocrit 25.5 % (41.0-53.0); Hemoglobin 7.8 g/dL (13.5-17.5); Mean Corpuscular Hemoglobin 24.5 pg (28.0-32.0); Mean Corpuscular Volume 79.6 fL (80.0-100.0); Nucleated Red Blood Cells % 0.0 %
[2025-06-04 15:17] LABS: Potassium 5.0 mmol/L (3.5-5.1)
[2025-06-04 15:18] LABS: Anion Gap 12 (5-15); Calcium 9.9 mg/dL (8.7-10.4); Carbon Dioxide 26 mmol/L (20-31)
[2025-06-04 15:19] LABS: Chloride 107 mmol/L (98-107); Sodium 145 mmol/L (136-145)
--- NOTE | 2025-06-04 15:22 | ED.PDOC ---
Altered Mental Status HPI Comments This is a 80 year old male TASNEEMA presenting to the ED with chief complaint of ALOC. EMS reports that the patient has been noted by daughter to be altered over the past 2 days with associated SOB. EMS relays that the patient's daughter notes patient is normally altered due to UTIs in the past. EMS states patient is slow to respond and confused. No further symptoms to report at this time. Chief Complaint: ALOC Time Seen by MD: 15:19 Reviewed Notes: Nurses Notes, Micro Photographer Notes, Medications, Allergies Allergies: Coded Allergies: NO KNOWN ALLERGIES (Unverified , 04/18/25) Home Meds Active Scripts Ciprofloxacin Hcl (Cipro) 250 Mg Tab, 250 MG PO BID, #14 TAB Prov:GAYLA BESS MD 04/21/25 Reported Medications Losartan Potassium (Losartan Potassium) 50 Mg Tab, 1 TAB PO DAILY 04/18/25 Apixaban Base (ELIQUIS) 5 Mg Tab, 1 TAB PO BID 04/18/25 Omeprazole (Omeprazole Dr) 20 Mg Cap, 1 CAP PO DAILY 04/18/25 Information Source: Emergency Med Personnel Mode of Arrival: EMS Severity: Unresponsive Timing: Days Duration: Since onset Prehospital treatment: None Quality: Decreased Alertness, Change in Behavior, Confusion Recent: Other (SOB) Associated Signs and Symptoms: Other (SOB) Past Medical History PAST MEDICAL HISTORY: COPD, CVA, DM, HTN, UTI'S Surgical History: BKA (Right) Family History Family History: Reviewed,noncontributory to illness Social History Smoker: Non-Smoker Alcohol: Denies ETOH Use Drugs: Denies Drug Use Lives In: Home Constitutional: denies: chills, diaphoresis, fatigue, fever, malaise, sweats, weakness, others EENTM: denies: blurred vision, double vision, ear bleeding, ear discharge, ear drainage, ear pain, ear ringing, eye pain, eye redness, hearing loss, mouth pain, mouth swelling, nasal discharge, nose bleeding, nose congestion, nose pain, photophobia, tearing, throat pain, throat swelling, voice changes, others Respiratory: reports: shortness of breath; denies: cough, hemoptysis, orthopnea, SOB at rest, SOB with excertion, stridor, wheezing, others Cardiovascular: denies: chest pain, dizzy spells, diaphoresis, Dyspnea on exertion, edema, irregular heart beat, left arm pain, lightheadedness, palpitations, PND, syncope, others Gastrointestinal: denies: abdomen distended, abdominal pain, blood streaked bowels, constipated, diarrhea, dysphagia, difficulty swallowing, hematemesis, melena, nausea, poor appetite, poor fluid intake, rectal bleeding, rectal pain, vomiting, others Genitourinary: denies: burning, dysuria, flank pain, frequency, hematuria, incontinence, penile discharge, penile sore, pain, testicle pain, testicle swelling, urgency, others Neurological: denies: dizziness, fainting, headache, left sided numbness, left sided weakness, numbness, paresthesia, pre-existing deficit, right sided numbness, right sided weakness, seizure, speech problems, tingling, tremors, weakness, others Musculoskeletal: denies: back pain, gout, joint pain, joint swelling, muscle pain, muscle stiffness, neck pain, others Integumetry: denies: bruises, change in color, change in hair/nails, dryness, laceration, lesions, lumps, rash, wounds, others Allergic/Immunocompromised: denies: Difficulty Healing, Frequent Infections, Hives, Itching, others Hematologic/Lymphatic: denies: anemia, blood clots, easy bleeding, easy bruising, swollen glands, others Endocrine: denies: excessive hunger, excessive sweating, excessive thirst, excessive urination, flushing, intolerance to cold, intolerance to heat, unexplained weight gain, unexplained weight loss, others Psychiatric: denies: anxiety, bipolar disorder, depression, hopeless, panic disorder, schizophrenia, sleepless, suicidal, others Unable to Obtain due to: Altered Mental Status All Other Systems: Reviewed and Negative Physical Exam General Appearance: No Apparent Distress, Normal HEENT: Normal ENT Inspection, Pharynx Normal, TMs Normal Neck: Full Range of Motion, Non-Tender, Normal, Normal Inspection Respiratory: Chest Non-Tender, Lungs Clear, No Accessory Muscle Use, No Respiratory Distress, Normal Breath Sounds Cardiovascular: No Edema, No JVD, No Murmur, No Gallop, Normal Peripheral Pulses, Regular Rate/Rhythm Breast Exam: Deferred Gastrointestinal: No Organomegaly, Non Tender, No Pulsatile Mass, Normal Bowel Sounds, Soft Genitalia: Deferred Pelvic: Deferred Rectal: Deferred Extremities: No calf tenderness, Normal capillary refill, Normal range of motion, Non-tender, No pedal edema, Other (Right BKA) Musculoskeletal : Apperance: Normal Neurologic: Alert, 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 Was a procedure done?: No Differential Diagnosis (ALOC) Differential Diagnosis: Dehydration, Hypoglycemia, Encephalopathy, Seizure, Closed Head Injury, ETOH Intoxication X-Ray, Labs, Meds, VS Vital Signs Date Time Temp Pulse Resp B/P (MAP) Pulse Ox O2 Delivery O2 Flow Rate FiO2 06/04/25 16:58 94 06/04/25 16:00 97 16 119/63 (81) 100 06/04/25 15:57 99 06/04/25 15:56 102 06/04/25 14:30 97.9 95 18 125/68 (87) 95 97.9 06/04/25 14:30 95 18 100 Nasal Cannula* 3 32 06/04/25 14:02 90 06/04/25 14:02 90 06/04/25 13:58 97.9 96 16 139/76 100 97.9 Lab Test 06/04/25 15:38 06/04/25 14:40 Range/Units Troponin I High Sensitivity 18 19 </=54 ng/L White Blood Count 7.8 4.4-10.8 10^3/uL Red Blood Count 3.20 L 4.5-5.90 10^6/uL Hemoglobin 7.8 L 13.5-17.5 g/dL Hematocrit 25.5 L 41.0-53.0 % Mean Corpuscular Volume 79.6 L 80.0-100.0 fL Mean Corpuscular Hemoglobin 24.5 L 28.0-32.0 pg Mean Corpuscular Hemoglobin Concent 30.7 L 32.0-36.0 g/dL Red Cell Distribution Width 20.4 H 11.8-14.3 % Platelet Count 360 140-450 10^3/uL Mean Platelet Volume 7.4 6.9-10.8 fL Neutrophils (%) (Auto) 62.4 37.0-80.0 % Lymphocytes (%) (Auto) 20.2 10.0-50.0 % Monocytes (%) (Auto) 10.9 0.0-12.0 % Eosinophils (%) (Auto) 5.7 0.0-7.0 % Basophils (%) (Auto) 0.8 0.0-2.0 % Neutrophils # (Auto) 4.8 1.6-8.6 10 ^3/uL Lymphocytes # (Auto) 1.6 0.4-5.4 10 ^3/uL Monocytes # (Auto) 0.8 0-1.3 10 ^3/uL Eosinophils # (Auto) 0.4 0-0.8 10 ^3/uL Basophils # (Auto) 0.1 0-0.2 10 ^3/uL Nucleated Red Blood Cells 0.0 % Sodium Level 145 136-145 mmol/L Potassium Level 5.0 3.5-5.1 mmol/L Chloride Level 107 98-107 mmol/L Carbon Dioxide Level 26 20-31 mmol/L Anion Gap 12 5-15 Blood Urea Nitrogen 25 H 9-23 mg/dL Creatinine 1.79 H 0.700-1.30 mg/dL Glomerular Filtration Rate Calc 38 >90 mL/min BUN/Creatinine Ratio 14.0 10.0-20.0 Serum Glucose 83 74-106 mg/dL Lactic Acid Level 2.0 0.4-2.0 mmol/L Calcium Level 9.9 8.7-10.4 mg/dL Time of 1ST Reevaluation: 16:18 Reevaluation 1ST: Unchanged Patient Education/Counseling: Diagnosis, Treatment Family Education/Counseling: Diagnosis, Treatment SEPSIS Sepsis Screen Date sepsis recognized/suspect: Jun 04, 2025 Time Sepsis recognized/suspect: 8 Recent Procedure: No On Antibiotic Therapy: No Respiratory Rate >20: No Heart Rate >90: Yes Temp<36 C (96.8 F) or >38.3 C: No SBP <90 or MAP <65 mmHG: No New Acute Mental Status Change: No Is the patient on CPAP, BIPAP,: No Physician Orders Urinalysis (06/04/25 14:04) Blood Culture (06/04/25 14:04) Head Without Contrast (06/04/25 14:16) Troponin-I Hs (06/04/25 17:04) Electrocardigram (06/04/25 15:04) Electrocardigram (06/04/25 17:04) Vital Signs Date Time Temp Pulse Resp B/P (MAP) Pulse Ox O2 Delivery O2 Flow Rate FiO2 06/04/25 16:58 94 06/04/25 16:00 97 16 119/63 (81) 100 06/04/25 15:57 99 06/04/25 15:56 102 06/04/25 14:30 97.9 95 18 125/68 (87) 95 97.9 06/04/25 14:30 95 18 100 Nasal Cannula* 3 32 06/04/25 14:02 90 06/04/25 14:02 90 06/04/25 13:58 97.9 96 16 139/76 100 97.9 Laboratory Tests Test 06/04/25 14:40 Lactic Acid Level 2.0 mmol/L (0.4-2.0) White Blood Count 7.8 10^3/uL (4.4-10.8) Departure 1 Departure Time of Disposition: 17:31 (Patient is not septic.Patient's worsening mental status and generalized weakness. We will admit patient for further workup and expert consultation) Impression: Primary Impression: Acute metabolic encephalopathy Additional Impressions: Generalized weakness Near syncope Disposition: ADMITTED INPATIENT Admit to: Tele Condition: Guarded Critical Care Note Critical Care Time?: Yes Critical care comment: Concern for CVA Authorized and Performed by: Elsa Pantoja MD Total critical care time: Approximately 38 minutes Due to a high probability of clinically significant, life threatening deterioration, the patient required my highest level of preparedness to intervene emergently and I personally spent this critical care time directly and personally managing the patient. This critical care time included obtaining a history; examining the patient; pulse oximetry; ordering and review of studies; arranging urgent treatment with development of a management plan; evaluation of patient's response to treatment; frequent reassessment; and, discussions with other providers. This critical care time was performed to assess and manage the high probability of imminent, life-threatening deterioration that could result in multi-organ failure. It was exclusive of separately billable procedures and treating other patients and teaching time. Please see my other sections and the rest of the note for further information on patient assessment and treatment. Stability Stability form required: No Heart Score Heart Score: Heart Score Response (Comments) Value History N/A 0 EKG N/A 0 Age N/A 0 Risk Factors N/A 0 Troponin N/A 0 Total 0 I personally scribed for ELSA PANTOJA MD ([email or web address]) on 06/04/25 at 15:22. Electronically submitted by Tigre Bennett ([email or web address]). ELSA PANTOJA MD Jun 04, 2025 15:22
[2025-06-04 15:23] LABS: BUN/Creatinine Ratio 14.0 (10.0-20.0); Glucose 83 mg/dL (74-106)
[2025-06-04 15:24] LABS: Blood Urea Nitrogen 25 mg/dL (9-23)
--- NOTE | 2025-06-04 15:25 | DVH ---
EXAM: CT HEAD WITHOUT CONTRAST INDICATION: syncope TECHNIQUE: CT images of the head were obtained without administration of IV contrast. CT scans at [facility] facility use dose modulation, iterative reconstruction, and/or weight based dosing when appropriate to reduce radiation dose to as low as reasonably achievable. COMPARISON: CT HEAD WITHOUT CONTRAST on DOS: 04/18/25 FINDINGS: PARENCHYMA: No acute hemorrhage. There is no mass effect, midline shift, or herniation. There is pres ervation of the potter white differentiation. Severe scattered hypoattenuation along the periventricula r, centrum semiovale, and deep white matter tracts, which are nonspecific however statistically most likely represent chronic microvascular ischemic change. VENTRICLES: No hydrocephalus. EXTRA-AXIAL SPACES: No extra-axial fluid collections. OTHER: The bony structures are intact. Visualized portions of the paranasal sinuses and mastoid air cells are clear. IMPRESSION: 1. No CT evidence of an acute intracranial abnormality. Severe sequelae of chronic microvascular isch emic change and possible sequelae of loss of potter-white differentiation/infarct along bilateral parie john lobes.
--- NOTE | 2025-06-04 16:58 | ECG ---
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
--- NOTE | 2025-06-04 16:59 | ECG ---
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
--- NOTE | 2025-06-04 18:14 | DVH ---
CHEST RADIOGRAPH Indication: sob Technique: XY CHEST PORTABLE Comparison: None FINDINGS: The cardiac silhouette is unremarkable. The lungs demonstrate perihilar and bibasilar airspace opacit y. The pulmonary vasculature is mildly prominent. Small left pleural effusion. There is no pneumothor ax. Aortic atherosclerotic disease. IMPRESSION: As above
--- NOTE | 2025-06-04 19:26 | ECG ---
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
[2025-06-04 19:30] VITALS: PULSE 98; RESP 17; O2SAT 95
[2025-06-04 21:50] LABS: Urine Protein, UAD Negative (Negative)
[2025-06-04 21:53] LABS: Alanine Aminotransferase 28 U/L (7-40); Albumin 4.4 g/dL (3.2-4.8); Alkaline Phosphatase 56 U/L (46-116); Magnesium 1.8 mg/dL (1.6-2.6); Total Protein 8.0 g/dL (5.7-8.2)
[2025-06-04 21:57] LABS: Bilirubin, Direct < 0.1 mg/dL (<0.3); Bilirubin, Total 0.2 mg/dL (0.2-1.0)
[2025-06-04] MEDS: MONTELUKAST SODIUM 10 MG TAB PO SCH (22:01)
[2025-06-04] MEDS: ATORVASTATIN 20 MG TAB PO SCH (22:01)
--- NOTE | 2025-06-04 22:10 | DVHHPRES ---
History of Present Illness Resident Creating Document: ALEA COLEMAN History of Present Illness Mr. 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 The patient's daughter, Christy Lopez, who Is his primary caregiver was contacted for history. She states that for the last 2 days the patient has been disoriented. She refers he does not know his name, is having visual hallucinations, has become aggressive, and is having sleep disturbances. She states she is unaware if the patient has had fever in the last few days, states that the patient has not complained of any symptoms. On evaluation in the ED, the patient was tachycardic, tachypneic, and hypertensive.Initial labs show microcytic anemia, creatinine 1.79, and troponins negative. UA without significant findings. VBG without significant finding, the patient refused an ABG. head CT shows no CT evidence of an acute intracranial abnormality. Chest x-ray shows lungs with perihilar and bibasilar airspace opacity, pulmonary vasculature is mildly prominent, small left pleural effusion. The patient was started on IV fluids and IV antibiotics. He was admitted for further work up and monitoring. Prior medical history: Type 2 diabetes mellitus, hypertension, COPD, DVT status post right BKA 3 years ago, prostate cancer, recurrent UTIs, asthma, stroke Prior surgical history: Right BKA Social history: Denies drug and alcohol use, daughter refers the patient has smoked half pack a day for approximately 52 years quit 17 years ago Allergies: Denies Lives: with Family Domestic Violence: Neg Review of Systems Review of Systems Review of systems unable to be evaluated due to patient's disorientation Allergies: Coded Allergies: NO KNOWN ALLERGIES (Unverified , 04/18/25) Medications Current Medications Medications Dose Ordered Sig/Randall Route Start Time Stop Time Status Last Admin Dose Admin Losartan Potassium 50 mg DAILY PO 06/05/25 10:00 Furosemide 20 mg DAILY PO 06/05/25 10:00 Atorvastatin Calcium 20 mg HS PO 06/04/25 22:00 06/04/25 22:01 20 MG Montelukast Sodium 10 mg HS PO 06/04/25 22:00 06/04/25 22:01 10 MG Potassium Chloride 10 meq DAILY PO 06/05/25 10:00 Enoxaparin Sodium 30 mg DAILY SC 06/05/25 10:00 Exam Vital Signs Vital Signs Date Time Temp Pulse Resp B/P (MAP) Pulse Ox O2 Delivery O2 Flow Rate FiO2 06/04/25 21:00 111 19 135/63 (87) 96 06/04/25 19:30 Nasal Cannula* 1 24 06/04/25 19:00 98.1 98.1 Exam General: Patient is a AOx0, follows commands HEENT: Normocephalic, atraumatic, normal reactive pupils, EOM intact, pink conjunctiva, pink dry mucous membrane Respiratory/pulmonary: Bilateral chest expansion, no pain on palpation of chest wall, vesicular murmurs present in almost all lung giraldo, crackles in left lower lung giraldo. Cardiovascular: Normal RRR, normal S1 and S2, no murmurs Abdomen: Abdomen mildly distended, normal bowel sounds, soft, there is no pain to palpation in any of the abdominal quadrants, no palpable masses. Extremities: No deformities, there is no peripheral edema present at the lower extremities, normal pulses Skin: No rashes or pruritus, there is no sacral edema present at this time. Neurological: Intact cranial nerves with no focal neurologic deficits Labs/Xrays Labs Test 06/04/25 21:45 06/04/25 21:40 06/04/25 21:00 06/04/25 20:20 Range/Units Blood Gas Specimen Type Venous Blood Gas Sample Site Vbg - n/a Blood Gas Patient Temperature 37.0 Arterial Blood Date Drawn [id number] Pedro Test N/a Venous Blood pH 7.410 7.320-7.430 Venous Blood pCO2 at Patient Temp 39.5 38.0-54.0 mmHg Venous Blood pO2 at Patient Temp < 36.5 23.0-48.0 mmHg Venous Blood HCO3 24.5 22.0-29.0 mmol/L Venous Blood Base Excess 0.0 -2.0-3.0 mmol/L Blood Gas Liter Flow 2.00 Blood Gas Modality Nasal cannula FiO2 % 28.0 Urine Color Light-yellow Yellow Urine Clarity Clear Clear Urine pH 5.0 5.0-9.0 Urine Specific [place] 1.014 1.001-1.035 Urine Protein Negative Negative Urine Ketones Negative Negative Urine Blood Negative Negative /uL Urine Nitrite Negative Negative Urine Bilirubin Negative Negative Urine Urobilinogen Normal Negative mg/dL Urine Leukocyte Esterase Negative Negative /uL Urine RBC 1 0 - 3 /hpf Urine Microscopic WBC 1 0-3 /HPF Urine Squamous Epithelial Cells None seen <5 /hpf Urine Bacteria None seen None Seen /hpf Urine Hyaline Casts Many 0 - 2 /lpf Urine Glucose Normal Normal mg/dL POC Glucose 71 70-106 mg/dl Test 06/04/25 17:23 06/04/25 14:40 Range/Units Troponin I High Sensitivity 16 </=54 ng/L White Blood Count 7.8 4.4-10.8 10^3/uL Red Blood Count 3.20 L 4.5-5.90 10^6/uL Hemoglobin 7.8 L 13.5-17.5 g/dL Hematocrit 25.5 L 41.0-53.0 % Mean Corpuscular Volume 79.6 L 80.0-100.0 fL Mean Corpuscular Hemoglobin 24.5 L 28.0-32.0 pg Mean Corpuscular Hemoglobin Concent 30.7 L 32.0-36.0 g/dL Red Cell Distribution Width 20.4 H 11.8-14.3 % Platelet Count 360 140-450 10^3/uL Mean Platelet Volume 7.4 6.9-10.8 fL Neutrophils (%) (Auto) 62.4 37.0-80.0 % Lymphocytes (%) (Auto) 20.2 10.0-50.0 % Monocytes (%) (Auto) 10.9 0.0-12.0 % Eosinophils (%) (Auto) 5.7 0.0-7.0 % Basophils (%) (Auto) 0.8 0.0-2.0 % Neutrophils # (Auto) 4.8 1.6-8.6 10 ^3/uL Lymphocytes # (Auto) 1.6 0.4-5.4 10 ^3/uL Monocytes # (Auto) 0.8 0-1.3 10 ^3/uL Eosinophils # (Auto) 0.4 0-0.8 10 ^3/uL Basophils # (Auto) 0.1 0-0.2 10 ^3/uL Nucleated Red Blood Cells 0.0 % Sodium Level 145 136-145 mmol/L Potassium Level 5.0 3.5-5.1 mmol/L Chloride Level 107 98-107 mmol/L Carbon Dioxide Level 26 20-31 mmol/L Anion Gap 12 5-15 Blood Urea Nitrogen 25 H 9-23 mg/dL Creatinine 1.79 H 0.700-1.30 mg/dL Glomerular Filtration Rate Calc 38 >90 mL/min BUN/Creatinine Ratio 14.0 10.0-20.0 Serum Glucose 83 74-106 mg/dL Lactic Acid Level 2.0 0.4-2.0 mmol/L Calcium Level 9.9 8.7-10.4 mg/dL Phosphorus Level 3.7 2.4-5.1 mg/dL Magnesium Level 1.8 1.6-2.6 mg/dL Total Bilirubin 0.2 0.2-1.0 mg/dL Direct Bilirubin < 0.1 <0.3 mg/dL Aspartate Amino Transferase (AST) 30 13-40 U/L Alanine Aminotransferase (ALT) 28 7-40 U/L Alkaline Phosphatase 56 46-116 U/L Total Protein 8.0 5.7-8.2 g/dL Albumin 4.4 3.2-4.8 g/dL Thyroid Stimulating Hormone (TSH) 1.40 0.55-4.78 uIU/mL SEPSIS Sepsis Screen Date sepsis recognized/suspect: Jun 04, 2025 Time Sepsis recognized/suspect: 1357 Recent Procedure: No On Antibiotic Therapy: No Respiratory Rate >20: No Heart Rate >90: Yes Temp<36 C (96.8 F) or >38.3 C: No SBP <90 or MAP <65 mmHG: No New Acute Mental Status Change: No Is the patient on CPAP, BIPAP,: No Physician Orders Chest Portable (06/04/25 17:30) Insert/Manage Urinary Catheter QSHIFT (06/04/25 16:00) Respiratory Culture W/ Gs (06/04/25 20:32) Sputum Induction (06/04/25 20:32) Urine Bacterial Culture (06/04/25 20:32) Complete Blood Count (06/05/25 04:00) Basic Metabolic Panel (06/05/25 04:00) Vitamin D, 25-Hydroxy (06/04/25 20:32) Vitamin B12 (06/04/25 20:32) Admit (06/04/25 21:09) Allergies (06/04/25 21:09) Code Status (06/04/25 21:09) Condition: Stable (06/04/25 21:09) Stat Ekg For Chest Pain (06/04/25 21:09) Notify Md Of Changes From Base (06/04/25 21:09) Emergency Dysrhythmia Protocol (06/04/25 21:09) Rhythm Strips Once Every Shift (06/04/25 21:09) Losartan Tablet (Cozaar Tablet) (06/05/25 10:00) Furosemide Tablet (Lasix Tablet) (06/05/25 10:00) Atorvastatin (Lipitor) (06/04/25 22:00) Montelukast Tablet (Singulair Tablet) (06/04/25 22:00) Potassium Er Tablet (Klor-Con Tablet) (06/05/25 10:00) Ammonia (06/04/25 21:09) Bilat Lower Dvt (06/04/25 21:09) Enoxaparin Sodium (Lovenox) (06/05/25 10:00) Venous Blood Gas (06/04/25 21:43) Vital Signs Date Time Temp Pulse Resp B/P (MAP) Pulse Ox O2 Delivery O2 Flow Rate FiO2 06/04/25 21:00 111 19 135/63 (87) 96 06/04/25 19:30 98 17 95 Nasal Cannula* 1 24 06/04/25 19:00 98.1 102 23 144/58 (86) 98.1 06/04/25 18:00 101 21 143/60 (87) 100 06/04/25 16:58 94 06/04/25 16:00 97 16 119/63 (81) 100 06/04/25 15:57 99 06/04/25 15:56 102 06/04/25 14:30 97.9 95 18 125/68 (87) 95 97.9 06/04/25 14:30 95 18 100 Nasal Cannula* 3 32 Laboratory Tests Test 06/04/25 14:40 Lactic Acid Level 2.0 mmol/L (0.4-2.0) White Blood Count 7.8 10^3/uL (4.4-10.8) Medications Medications Dose Ordered Sig/Randall Route Start Time Stop Time Status Last Admin Dose Admin Atorvastatin Calcium 20 mg HS PO 06/04/25 22:00 06/04/25 22:01 20 MG Ceftriaxone Sodium 50 ml @ 100 mls/hr ONCE ONCE IV 06/04/25 21:15 10/8/25 21:44 DC 06/04/25 22:00 100 MLS/HR Montelukast Sodium 10 mg HS PO 06/04/25 22:00 06/04/25 22:01 10 MG Assessment/Plan Assessment/Plan Assessment and Plan: Acute Metabolic Encephalopathy due to sepsis Sepsis secondary to PNA Possible Pneumonia (Gram positive/gram negative) - Ceftriaxone 1 g IV daily - Azithromycin 500 mg IV daily - Blood cultures were ordered - Sputum cultures were ordered Possible ANGEL on CKD likely due to VMN/hemodynamically mediated - IV fluids - Monitor renal function - Avoid nephrotoxic drugs Nonocclusive DVT in right common femoral vein - Bilateral lower extremity venous duplex: Nonocclusive thrombus in the right common femoral vein and proximal/ mid superficial vein, no left femoral popliteal venous thrombosis - Lovenox 50 mg SC q12 hours Microcytic Anemia, likely due to chronic disease - Monitor H&H COPD, currently not exacerbated Chronic respiratory failure likely due to above - Supplemental oxygen with nasal cannula 1 L Type 2 Diabetes Mellitus, HbA1c 5.5 - Mild SSI - Accu-cheks - Consistent Carbohydrate Diet Hypertension - Losartan 50 mg p.o. daily History of DVT, s/p R BKA History of prostate cancer Diet: Consistent carbohydrate diet DVT prophylaxis: Patient on therapeutic dose of Lovenox GI prophylaxis: Not indicated Case discussed with Dr. Albarran Goals of care discussed with the patient's daughter Arianna ([phone]) for over 25 minutes. FULL CODE. Plan discussed with: Daughter, Other (Nurses) My Orders Orders - ALEA COLEMAN RESIDENT Procedure Category Date Status Time Respiratory Culture KENNA 06/04/25 Logged W/ Gs 20:32 Sputum Induction RT 06/04/25 Logged 20:32 Urine Bacterial KENNA 06/04/25 In Process Culture 20:32 Complete Blood Count LAB 06/05/25 Verified 04:00 Basic Metabolic Panel LAB 06/05/25 Verified 04:00 Vitamin D, 25-Hydroxy LAB 06/04/25 In Process 20:32 Vitamin B12 LAB 06/04/25 In Process 20:32 Admit ADMIT 06/04/25 Transmitted 21:09 Allergies NINA 06/04/25 In Process 21:09 Code Status CODE 06/04/25 Transmitted 21:09 Condition: Stable NINA 06/04/25 In Process 21:09 Stat Ekg For Chest NINA 06/04/25 In Process Pain 21:09 Notify Md Of Changes [facility] 06/04/25 In Process From Base 21:09 Emergency Dysrhythmia [facility] 06/04/25 In Process Protocol 21:09 Rhythm Strips Once [facility] 06/04/25 In Process Every Shift 21:09 Losartan Tablet [facility] 06/05/25 In Process (Cozaar Tablet) 10:00 Furosemide Tablet [facility] 06/05/25 In Process (Lasix Tablet) 10:00 Atorvastatin (Lipitor) PHA 06/04/25 In Process 22:00 Montelukast Tablet [facility] 06/04/25 In Process (Singulair Tablet) 22:00 Potassium Er Tablet [facility] 06/05/25 In Process (Klor-Con Tablet) 10:00 Ammonia LAB 06/04/25 In Process 21:09 Bilat Lower Dvt US 06/04/25 Taken 21:09 Enoxaparin Sodium [facility] 06/05/25 In Process (Lovenox) 10:00 Venous Blood Gas RT 06/04/25 Logged 21:43 Date of Service: Jun 04, 2025 Billing Provider: AUSTEN ALBARRAN MD Common Visit Codes: [id number] INP/OBS CARE (HIGH) Secondary Visit Codes: [id number] CARE PLAN 30 MINUTES ALEA COLEMAN RESIDENT Jun 04, 2025 22:10 RENAE YATES RESIDENT Jun 05, 2025 08:12
--- NOTE | 2025-06-04 23:02 | DVH ---
Bilateral lower extremity venous duplex Clinical History: Ro DVT Comparison: None Technique: Duplex Doppler evaluation of the deep venous systems of both lower extremities from the common femora l veins to the popliteal veins including color Doppler and spectral/pulsed waveform analysis was perf ormed. Findings: RIGHT SIDE: Nonocclusive thrombus seen in the common femoral vein, and proximal/ mid superficial femoral vein. The below-knee veins are surgically absent from BKA. LEFT SIDE: The common femoral vein demonstrates appropriate compressibility and waveform variability. There is compressibility/patency of the great saphenous vein at the proximal thigh. The femoral vein demonstrates appropriate compressibility and waveform variability. The deep femoral vein demonstrates appropriate compressibility and waveform variability. The popliteal vein demonstrates appropriate compressibility and waveform variability. There is normal compressibility at the tibioperoneal trunk. Impression: 1. Nonocclusive thrombus in the right common femoral vein and proximal/mid superficial femoral vein. 2. No left femoropopliteal venous thrombosis.
[2025-06-05] MEDS: AZITHROMYCIN 500MG/ 250ML 250 ML IV SCH (00:26)
[2025-06-05] MEDS: SODIUM CHLORIDE 0.9% 500 ML IV ONE (01:00)
[2025-06-05] MEDS ORDERED: DEXTROSE (50%) 50ML SYRG IV PRN (05:30)
[2025-06-05] MEDS: ACCU-CHEK COMFORT CURVE STRIP VI SCH (06:35)
[2025-06-05] MEDS: InsuLIN REG 1unit/0.01ml Soln (100units/ml) SC SCH (06:35)
[2025-06-05 07:55] LABS: Hematocrit 23.8 % (41.0-53.0); Hemoglobin 7.2 g/dL (13.5-17.5); Mean Corpuscular Hemoglobin 24.5 pg (28.0-32.0); Mean Corpuscular Volume 80.4 fL (80.0-100.0); Nucleated Red Blood Cells % 0.1 %
[2025-06-05 07:58] LABS: Potassium 4.5 mmol/L (3.5-5.1)
[2025-06-05 07:59] LABS: Anion Gap 12 (5-15); Calcium 9.5 mg/dL (8.7-10.4); Carbon Dioxide 24 mmol/L (20-31)
[2025-06-05 08:04] LABS: BUN/Creatinine Ratio 12.5 (10.0-20.0); Blood Urea Nitrogen 20 mg/dL (9-23)
[2025-06-05 08:05] LABS: Chloride 109 mmol/L (98-107); Glucose 109 mg/dL (74-106); Sodium 145 mmol/L (136-145)
[2025-06-05] MEDS ORDERED: ENOXAPARIN SOD 100 MG/1 ML SYRINGE SC SCH ×2 (10:00→22:00)
[2025-06-05] MEDS ORDERED: ENOXAPARIN SOD 40 MG/0.4 ML SYRINGE SC SCH ×2 (10:00)
[2025-06-05] MEDS: LOSARTAN POTASSIUM 50 MG TAB PO SCH (11:08)
[2025-06-05] MEDS: FUROSEMIDE 20 MG TAB PO SCH (11:09)
[2025-06-05] MEDS: ENOXAPARIN SOD 100 MG/1 ML SYRINGE SC SCH (11:09)
[2025-06-05] MEDS: POTASSIUM CHL 10 Meq TABLET PO SCH (11:09)
[2025-06-05] MEDS ORDERED: ALBUTEROL SULF 2.5 MG/0.5ML(0.5%) NEB SOLN NEB PRN (14:45)
[2025-06-05] MEDS ORDERED: IPRATROPIUM BROM 0.5 MG/2.5ML INH SOL NEB PRN (14:45)
[2025-06-05 14:48] VITALS: BP 130/53; PULSE 88; RESP 19; TEMP 98.7; O2SAT 96
--- NOTE | 2025-06-05 14:50 | DVHPN2 ---
Subjective Patient reports having some shortness of breath. Reviewed: Care Plan, H&P, Labs, Medications Changes from previous H/P or p: No Changes General: Per HPI Objective Vitals Vital Signs Date Time Temp Pulse Resp B/P (MAP) Pulse Ox O2 Delivery O2 Flow Rate FiO2 06/05/25 12:00 98.7 88 23 130/53 (78) 96 98.7 06/05/25 08:27 Nasal Cannula* 1 24 Intake/Output Intake and Output 06/05/25 07:00 Intake Total 800 ml Balance 800 ml Intake IV Total 800 ml General Appearance: Alert, Oriented X3, Cooperative, No acute distress HEENT: Atraumatic, PERRLA Lungs: Clear to auscultation, Normal air movement Cardiovascular: Normal S1, Normal S2 Abdomen: Normal bowel sounds, Soft, No tenderness Back: Flank Tenderness, Midline Tenderness Musculoskeletal: Normal sensory function, Normal motor function Skin: Dry, Intact Psych/Mental Status: Mental status NL, Mood NL Medications Current Medications Medications Dose Ordered Sig/Randall Route Start Time Stop Time Status Last Admin Dose Admin Losartan Potassium 50 mg DAILY PO 06/05/25 10:00 06/05/25 11:08 50 MG Furosemide 20 mg DAILY PO 06/05/25 10:00 06/05/25 11:09 20 MG Atorvastatin Calcium 20 mg HS PO 06/04/25 22:00 06/04/25 22:01 20 MG Montelukast Sodium 10 mg HS PO 06/04/25 22:00 06/04/25 22:01 10 MG Potassium Chloride 10 meq DAILY PO 06/05/25 10:00 06/05/25 11:09 10 MEQ Azithromycin 250 ml @ 125 mls/hr DAILY@2200 IV 06/05/25 00:00 06/05/25 00:26 125 MLS/HR Diagnostic Test (Pha) 1 strip ACHS 06/05/25 07:00 06/05/25 11:42 1 STRIP Insulin Human Regular ACHS SC 06/05/25 07:00 Dextrose 50 ml UD PRN IV 06/05/25 05:30 Ceftriaxone Sodium 50 ml @ 100 mls/hr DAILY@09 IV 06/05/25 09:00 06/05/25 09:35 100 MLS/HR Enoxaparin Sodium 50 mg Q12HR SC 06/05/25 10:00 UNV Enoxaparin Sodium 50 mg Q12HR SC 06/05/25 22:00 Cancel Albuterol 2.5 mg Q4HPRN PRN NEB 06/05/25 14:45 UNV Ipratropium [place] 0.5 mg Q4HPRN PRN NEB 06/05/25 14:45 UNV Apixaban 5 mg BID PO 06/05/25 22:00 UNV Laboratory Results Laboratory Tests 06/05/25 07:32 Chemistry Test 06/05/25 07:32 Calcium Level 9.5 mg/dL (8.7-10.4) Urinalysis Test 06/04/25 21:00 Urine Color Light-yellow (Yellow) Urine Clarity Clear (Clear) Urine pH 5.0 (5.0-9.0) Urine Specific [place] 1.014 (1.001-1.035) Urine Protein Negative (Negative) Urine Ketones Negative (Negative) Urine Blood Negative /uL (Negative) Urine Nitrite Negative (Negative) Urine Bilirubin Negative (Negative) Urine Urobilinogen Normal mg/dL (Negative) Urine Leukocyte Esterase Negative /uL (Negative) Urine RBC 1 /hpf (0 - 3) Urine Microscopic WBC 1 /HPF (0-3) Urine Squamous Epithelial Cells None seen /hpf (<5) Urine Bacteria None seen /hpf (None Seen) Urine Hyaline Casts Many /lpf (0 - 2) Urine Glucose Normal mg/dL (Normal) Blood Gas Results Test 06/04/25 21:40 FiO2 % 28.0 Microbiology Microbiology Date/Time Source Procedure Growth Status 06/04/25 21:00 Voided Urine Urine Culture - Preliminary Resulted Labs and/or images reviewed: Labs reviewed by me, Image(s) reviewed by me Assessment/Plan Assessment/Plan Impression: -acute on chronic hypoxic respiratory failure -DVT in right lower extremity,? Chronic -cachexia -COPD -CKD stage IIIB -primary hypertension -diabetes mellitus -nicotine dependence Plan: -continue current antibiotic therapy -change Lovenox to Eliquis given chronic DVT -bronchodilators -gentle IV hydration -regular insulin sliding scale -repeat labs and chest x-ray in a.m. Total time spent with patient discussing and formulating plan of care: 35 minutes. This medical document was created using an electronic medical record system with [employer] dictation system. Although this document has been carefully reviewed, there may still be some phonetic and typographical errors. These areas are purely typographical due to imperfections of the software programs, and do not reflect any compromise in the patient's medical care. Plan discussed with: Patient, Other (RN) My Orders Orders - YOLA AWAD NP Procedure Category Date Status Time Basic Metabolic Panel LAB 06/06/25 Verified 04:00 Iron Panel LAB 06/06/25 Verified 04:00 Magnesium LAB 06/06/25 Verified 04:00 Chest Portable XY 06/06/25 Logged 04:00 Albuterol Medneb PHA 06/05/25 Logged (Ventolin Medneb) 14:45 Ipratropium Medneb PHA 06/05/25 Logged (Atrovent Medneb) 14:45 Apixaban (Eliquis) PHA 06/05/25 Logged 22:00 NS PHA 06/05/25 Transmitted 14:45 Date of Service: Jun 05, 2025 Billing Provider: YOLA AWAD NP Common Visit Codes: [id number] INP/OBS CARE(HIGH) YOLA AWAD NP Jun 05, 2025 14:50
[2025-06-05] MEDS: SODIUM CHLORIDE 0.9% 1,000 ML IV ONE (15:09)
[2025-06-05 16:18] VITALS: BP 137/74; PULSE 105; RESP 20; TEMP 97.9; O2SAT 90
[2025-06-05 17:00] VITALS: BP 137/74; PULSE 105; RESP 20; TEMP 97.9; O2SAT 90
[2025-06-05 18:31] VITALS: O2SAT 94
[2025-06-05 21:00] VITALS: BP 120/69; PULSE 110; RESP 19; TEMP 98.9; O2SAT 98
[2025-06-05] MEDS: APIXABAN 5 MG TAB PO SCH (21:00)
[2025-06-05] MEDS ORDERED: ENOXAPARIN SOD 60 MG/0.6 ML SYRINGE SC SCH (22:00)
[2025-06-06 01:00] VITALS: BP_SYST 116; BP_SYST 127; BP_DIAS 64; BP_DIAS 81; PULSE 108; PULSE 67; RESP 16; RESP 19; TEMP 96.1; TEMP 98.7; O2SAT 100; O2SAT 98
[2025-06-06 05:00] VITALS: BP 133/78; PULSE 100; RESP 18; TEMP 98; O2SAT 100
--- NOTE | 2025-06-06 05:28 | DVH ---
CHEST RADIOGRAPH Indication: pna Technique: 1 view Comparison: XY CHEST PORTABLE on DOS: 06/04/25, XY CHEST PORTABLE on DOS: 04/18/25 FINDINGS: Lines and Tubes: None. Lungs/Pleura: Unchanged. Cardiomediastinum: Unchanged. Other: Unchanged osseous structures. IMPRESSION: 1. No significant change from 2 days prior. [id number]-left perihilar interstitial opacities and mild bibasilar airspace attenuation, likely chronic.
[2025-06-06 05:58] VITALS: O2SAT 95
[2025-06-06 06:49] LABS: Anion Gap 15 (5-15); Carbon Dioxide 24 mmol/L (20-31); Chloride 103 mmol/L (98-107); Potassium 4.4 mmol/L (3.5-5.1); Sodium 142 mmol/L (136-145)
[2025-06-06 06:50] LABS: Calcium 9.8 mg/dL (8.7-10.4)
[2025-06-06 06:54] LABS: Glucose 87 mg/dL (74-106); Total Iron Binding Capacity 389.0 ug/dL (250-425)
[2025-06-06 06:55] LABS: BUN/Creatinine Ratio 10.9 (10.0-20.0); Blood Urea Nitrogen 15 mg/dL (9-23); Magnesium 1.6 mg/dL (1.6-2.6)
[2025-06-06 06:56] LABS: Iron 32.0 ug/dL (65-175)
[2025-06-06] MEDS: LORazepam 2MG/ML-1ML VIAL IV ONE (10:25)
[2025-06-06] MEDS ORDERED: HALOPERIDOL 1 MG TAB PO PRN (14:15)
--- NOTE | 2025-06-06 14:20 | DVHPN2 ---
Subjective Denies any symptoms Reviewed: Care Plan, H&P, Labs, Medications Changes from previous H/P or p: No Changes General: Per HPI Objective Vitals Vital Signs Date Time Temp Pulse Resp B/P (MAP) Pulse Ox O2 Delivery O2 Flow Rate FiO2 06/06/25 08:00 Nasal Cannula* 2 28 06/06/25 05:00 98.0 100 18 133/78 (96) 100 98.0 Intake/Output Intake and Output 06/06/25 07:00 Intake Total 700 ml Output Total 1950 ml Balance -1250 ml Intake Oral 400 ml IV Total 300 ml Output Urine Total 1950 ml General Appearance: Alert, Oriented X3, Cooperative, No acute distress HEENT: Atraumatic, PERRLA Lungs: Clear to auscultation, Normal air movement Cardiovascular: Normal S1, Normal S2 Abdomen: Normal bowel sounds, Soft, No tenderness Back: Flank Tenderness, Midline Tenderness Musculoskeletal: Normal sensory function, Normal motor function Skin: Dry, Intact Psych/Mental Status: Mental status NL, Mood NL Medications Current Medications Medications Dose Ordered Sig/Randall Route Start Time Stop Time Status Last Admin Dose Admin Losartan Potassium 50 mg DAILY PO 06/05/25 10:00 06/05/25 11:08 50 MG Furosemide 20 mg DAILY PO 06/05/25 10:00 06/05/25 11:09 20 MG Atorvastatin Calcium 20 mg HS PO 06/04/25 22:00 06/05/25 21:00 20 MG Montelukast Sodium 10 mg HS PO 06/04/25 22:00 06/05/25 21:04 10 MG Potassium Chloride 10 meq DAILY PO 06/05/25 10:00 06/05/25 11:09 10 MEQ Azithromycin 250 ml @ 125 mls/hr DAILY@2200 IV 06/05/25 00:00 06/05/25 21:00 125 MLS/HR Diagnostic Test (Pha) 1 strip ACHS 06/05/25 07:00 06/06/25 06:26 1 STRIP Insulin Human Regular ACHS SC 06/05/25 07:00 06/05/25 22:05 2 UNITS Dextrose 50 ml UD PRN IV 06/05/25 05:30 Ceftriaxone Sodium 50 ml @ 100 mls/hr DAILY@09 IV 06/05/25 09:00 06/05/25 09:35 100 MLS/HR Enoxaparin Sodium 50 mg Q12HR SC 06/05/25 10:00 UNV Enoxaparin Sodium 50 mg Q12HR SC 06/05/25 22:00 Cancel Albuterol 2.5 mg Q4HPRN PRN NEB 06/05/25 14:45 Ipratropium [place] 0.5 mg Q4HPRN PRN NEB 06/05/25 14:45 Apixaban 5 mg BID PO 06/05/25 22:00 06/05/25 21:00 5 MG Laboratory Results Laboratory Tests 06/05/25 07:32 06/06/25 06:00 Chemistry Test 06/06/25 06:00 Calcium Level 9.8 mg/dL (8.7-10.4) Magnesium Level 1.6 mg/dL (1.6-2.6) Urinalysis Test 06/04/25 21:00 Urine Color Light-yellow (Yellow) Urine Clarity Clear (Clear) Urine pH 5.0 (5.0-9.0) Urine Specific [place] 1.014 (1.001-1.035) Urine Protein Negative (Negative) Urine Ketones Negative (Negative) Urine Blood Negative /uL (Negative) Urine Nitrite Negative (Negative) Urine Bilirubin Negative (Negative) Urine Urobilinogen Normal mg/dL (Negative) Urine Leukocyte Esterase Negative /uL (Negative) Urine RBC 1 /hpf (0 - 3) Urine Microscopic WBC 1 /HPF (0-3) Urine Squamous Epithelial Cells None seen /hpf (<5) Urine Bacteria None seen /hpf (None Seen) Urine Hyaline Casts Many /lpf (0 - 2) Urine Glucose Normal mg/dL (Normal) Microbiology Microbiology Date/Time Source Procedure Growth Status 06/04/25 21:00 Voided Urine Urine Culture - Preliminary Resulted 06/04/25 14:40 Blood Blood Culture - Preliminary NO GROWTH AFTER 24 HOURS OF INCUBATION. Resulted Labs and/or images reviewed: Image(s) reviewed by me Assessment/Plan Assessment/Plan Impression: -acute on chronic hypoxic respiratory failure -DVT in right lower extremity,? Chronic -cachexia -COPD -CKD stage IIIB -primary hypertension -diabetes mellitus -nicotine dependence -Acute Delirium Plan: -continue current antibiotic therapy -Change abx to Zosyn -IM Haldol -bronchodilators -gentle IV hydration -regular insulin sliding scale -repeat labs in am Total time spent with patient discussing and formulating plan of care: 35 minutes. This medical document was created using an electronic medical record system with [email or web address] computerized dictation system. Although this document has been carefully reviewed, there may still be some phonetic and typographical errors. These areas are purely typographical due to imperfections of the software programs, and do not reflect any compromise in the patient's medical care. Plan discussed with: Patient, Other (RN) My Orders Orders - YOLA AWAD NP Procedure Category Date Status Time Chest Portable XY 06/06/25 Resulted 04:00 Albuterol Medneb PHA 06/05/25 In Process (Ventolin Medneb) 14:45 Ipratropium Medneb PHA 06/05/25 In Process (Atrovent Medneb) 14:45 Apixaban (Eliquis) PHA 06/05/25 In Process 22:00 Piperacillin-Tazob PHA 06/06/25 Logged 3.375gm (Zosyn 3.375g 22:00 Drug Screen LAB 06/06/25 Logged 14:12 Haloperidol Tablet PHA 06/06/25 Logged (Haldol Tablet) 14:15 Thiamine Inj PHA 06/06/25 Logged 14:15 Multiple Vitamin PHA 06/07/25 Logged Tablet (Mvi Tab) 10:00 Date of Service: Jun 06, 2025 Billing Provider: YOLA AWAD NP Common Visit Codes: [id number] INP/OBS CARE(HIGH) YOLA AWAD NP Jun 06, 2025 14:20
[2025-06-06] MEDS: HALOPERIDOL LACTATE 5 MG/ML INJ VIAL IM PRN (16:12)
[2025-06-06] MEDS: PIPERACILLIN-TAZOB 3.375GM 100 ML IV ONE (16:48)
[2025-06-06] MEDS: THIAMINE 100mg/ml INJ (200mg/2ml VIAL) IV SCH (16:48)
[2025-06-06 19:00] VITALS: O2SAT 92
[2025-06-06 21:00] VITALS: BP 139/59; PULSE 84; RESP 18; TEMP 98.3; O2SAT 90
[2025-06-06] MEDS: PIPERACILLIN-TAZOB 3.375GM 100 ML IV SCH (21:51)
[2025-06-07] VITALS (8 sets, daily range): BP systolic 106–129; BP diastolic 52–68; PULSE 80–98; RESP 16–18; TEMP 97.6–99.1; O2SAT 90–100
[2025-06-07] MEDS: DOCUSATE SOD 100 MG CAP PO PRN (02:29)
[2025-06-07] MEDS: ACETAMINOPHEN 325 MG TAB PO PRN (06:46)
[2025-06-07] MEDS: MULTIPLE VITAMIN TAB PO SCH (09:22)
[2025-06-07 11:43] LABS: Anion Gap 13 (5-15); Carbon Dioxide 25 mmol/L (20-31); Chloride 101 mmol/L (98-107); Potassium 4.2 mmol/L (3.5-5.1); Sodium 139 mmol/L (136-145)
[2025-06-07 11:44] LABS: Calcium 9.4 mg/dL (8.7-10.4)
[2025-06-07 11:49] LABS: BUN/Creatinine Ratio 11.2 (10.0-20.0); Blood Urea Nitrogen 17 mg/dL (9-23); Glucose 107 mg/dL (74-106)
[2025-06-07] MEDS: DOXYCYCLINE 100 MG TAB/CAP PO ONE (12:16)
--- NOTE | 2025-06-07 18:34 | DVHPN2 ---
Subjective Better Reviewed: Care Plan, H&P, Labs, Medications, Previous Orders, Radiology Changes from previous H/P or p: No Changes General: Per HPI Objective Vitals Vital Signs Date Time Temp Pulse Resp B/P (MAP) Pulse Ox O2 Delivery O2 Flow Rate FiO2 06/07/25 17:00 98.0 98 17 106/53 (70) 93 98.0 06/07/25 08:00 Nasal Cannula* 3 32 Intake/Output Intake and Output 06/07/25 07:00 Intake Total 100 ml Output Total 1300 ml Balance -1200 ml Intake Oral 0 ml IV Total 100 ml Output Urine Total 1300 ml General Appearance: Alert, Oriented X3, Cooperative, No acute distress HEENT: Atraumatic Lungs: Other (Some crackles bilateral lungs and fair/decreased air entry) Cardiovascular: Regular rate Abdomen: Normal bowel sounds, Soft, No tenderness Psych/Mental Status: Mental status NL, Mood NL Medications Current Medications Medications Dose Ordered Sig/Randall Route Start Time Stop Time Status Last Admin Dose Admin Losartan Potassium 50 mg DAILY PO 06/05/25 10:06/07/25 09:24 50 MG Furosemide 20 mg DAILY PO 06/05/25 10:00 06/07/25 09:24 20 MG Atorvastatin Calcium 20 mg HS PO 06/04/25 22:00 06/06/25 21:34 20 MG Montelukast Sodium 10 mg HS PO 06/04/25 22:00 06/06/25 21:34 10 MG Potassium Chloride 10 meq DAILY PO 06/05/25 10:00 06/07/25 09:23 10 MEQ Diagnostic Test (Pha) 1 strip ACHS 06/05/25 07:00 06/07/25 18:29 1 STRIP Insulin Human Regular ACHS SC 06/05/25 07:00 06/05/25 22:05 2 UNITS Dextrose 50 ml UD PRN IV 06/05/25 05:30 Enoxaparin Sodium 50 mg Q12HR SC 06/05/25 10:00 UNV Enoxaparin Sodium 50 mg Q12HR SC 06/05/25 22:00 Cancel Albuterol 2.5 mg Q4HPRN PRN NEB 06/05/25 14:45 Ipratropium [place] 0.5 mg Q4HPRN PRN NEB 06/05/25 14:45 Apixaban 5 mg BID PO 06/05/25 22:00 06/07/25 09:23 5 MG Piperacillin Sod/ Tazobactam Sod 100 ml @ 25 mls/hr Q8HR IV 06/06/25 22:00 06/07/25 15:35 25 MLS/HR Thiamine HCl 100 mg DAILY IV 06/06/25 14:15 06/07/25 09:22 100 MG Multivitamins 1 tab DAILY PO 06/07/25 10:00 06/07/25 09:22 1 TAB Haloperidol Lactate 2.5 mg Q8HP PRN IM 06/06/25 14:30 06/06/25 16:12 2.5 MG Docusate Sodium 100 mg BIDPRN PRN PO 06/07/25 02:15 06/07/25 02:29 100 MG Acetaminophen 650 mg Q6HP PRN PO 06/07/25 06:45 06/07/25 06:46 650 MG Doxycycline Monohydrate 100 mg Q12HR PO 06/07/25 22:00 Laboratory Results Laboratory Tests 06/05/25 07:32 06/07/25 11:13 Chemistry Test 06/07/25 11:13 Calcium Level 9.4 mg/dL (8.7-10.4) Cardiac Markers Test 06/07/25 11:13 B-Type Natriuretic Peptide 19.19 pg/mL (0-100) Urinalysis Test 06/04/25 21:00 Urine Color Light-yellow (Yellow) Urine Clarity Clear (Clear) Urine pH 5.0 (5.0-9.0) Urine Specific [place] 1.014 (1.001-1.035) Urine Protein Negative (Negative) Urine Ketones Negative (Negative) Urine Blood Negative /uL (Negative) Urine Nitrite Negative (Negative) Urine Bilirubin Negative (Negative) Urine Urobilinogen Normal mg/dL (Negative) Urine Leukocyte Esterase Negative /uL (Negative) Urine RBC 1 /hpf (0 - 3) Urine Microscopic WBC 1 /HPF (0-3) Urine Squamous Epithelial Cells None seen /hpf (<5) Urine Bacteria None seen /hpf (None Seen) Urine Hyaline Casts Many /lpf (0 - 2) Urine Glucose Normal mg/dL (Normal) Microbiology Microbiology Date/Time Source Procedure Growth Status 06/04/25 21:00 Voided Urine Urine Culture - Final Enterococcus faecalis Complete 06/04/25 14:40 Blood Blood Culture - Preliminary NO GROWTH AFTER 72 HOURS OF INCUBATION. Resulted Assessment/Plan Assessment/Plan Respiratory failure/acute on chronic COPD with mild exacerbation Acute kidney injury/chronic kidney disease 3A Right lower extremity DVT Hypertension Diabetes UTI with Enterococcus faecalis Plan: We will add doxycycline and prednisone for the COPD . Amoxicillin for Enterococcus faecalis. Discontinue Zosyn. Possible home tomorrow if stable Plan discussed with: Patient My Orders Orders - CONOR STUART MD Procedure Category Date Status Time Doxycycline Tablet PHA 06/07/25 In Process (Vibramycin Tablet) 22:00 Date of Service: Jun 07, 2025 Billing Provider: CONOR STUART MD Common Visit Codes: [id number] INP/OBS CARE(HIGH) CONOR STUART MD Jun 07, 2025 18:34
[2025-06-07] MEDS: AMOXICILLIN TRIHYDRATE 250 MG CAP PO SCH (22:15)
[2025-06-07] MEDS: DOXYCYCLINE 100 MG TAB/CAP PO SCH (22:16)
[2025-06-08] VITALS (10 sets, daily range): BP systolic 112–137; BP diastolic 53–72; PULSE 87–111; RESP 16–20; TEMP 97.4–98.5; O2SAT 93–100
--- NOTE | 2025-06-08 09:42 | DVHDS2 ---
Discharge Summary Date of Admission Jun 04, 2025 at 21:09 Date of Discharge: Jun 08, 2025 Admitting Diagnosis Altered mental status with sepsis and pneumonia Labs/Diagnostic Data: Laboratory Results Test 06/08/25 05:46 06/07/25 11:13 06/06/25 06:00 06/05/25 07:32 POC Glucose 151 mg/dl (70-106) Sodium Level 139 mmol/L (136-145) Potassium Level 4.2 mmol/L (3.5-5.1) Chloride Level 101 mmol/L (98-107) Carbon Dioxide Level 25 mmol/L (20-31) Anion Gap 13 (5-15) Blood Urea Nitrogen 17 mg/dL (9-23) Creatinine 1.52 mg/dL (0.700-1.30) Glomerular Filtration Rate Calc 46 mL/min (>90) BUN/Creatinine Ratio 11.2 (10.0-20.0) Serum Glucose 107 mg/dL (74-106) Calcium Level 9.4 mg/dL (8.7-10.4) B-Type Natriuretic Peptide 19.19 pg/mL (0-100) Magnesium Level 1.6 mg/dL (1.6-2.6) Iron Level 32 ug/dL (65-175) Total Iron Binding Capacity 389 ug/dL (250-425) Percent Iron Saturation 8.2 % (20-55) White Blood Count 6.7 10^3/uL (4.4-10.8) Red Blood Count 2.96 10^6/uL (4.5-5.90) Hemoglobin 7.2 g/dL (13.5-17.5) Hematocrit 23.8 % (41.0-53.0) Mean Corpuscular Volume 80.4 fL (80.0-100.0) Mean Corpuscular Hemoglobin 24.5 pg (28.0-32.0) Mean Corpuscular Hemoglobin Concent 30.5 g/dL (32.0-36.0) Red Cell Distribution Width 19.9 % (11.8-14.3) Platelet Count 302 10^3/uL (140-450) Mean Platelet Volume 7.3 fL (6.9-10.8) Neutrophils (%) (Auto) 68.0 % (37.0-80.0) Lymphocytes (%) (Auto) 16.1 % (10.0-50.0) Monocytes (%) (Auto) 9.0 % (0.0-12.0) Eosinophils (%) (Auto) 6.4 % (0.0-7.0) Basophils (%) (Auto) 0.5 % (0.0-2.0) Neutrophils # (Auto) 4.6 10 ^3/uL (1.6-8.6) Lymphocytes # (Auto) 1.1 10 ^3/uL (0.4-5.4) Monocytes # (Auto) 0.6 10 ^3/uL (0-1.3) Eosinophils # (Auto) 0.4 10 ^3/uL (0-0.8) Basophils # (Auto) 0 10 ^3/uL (0-0.2) Nucleated Red Blood Cells 0.1 % Test 06/04/25 21:45 06/04/25 21:40 06/04/25 21:00 06/04/25 17:23 Ammonia < 10 umol/L (11-32) Blood Gas Specimen Type Venous Blood Gas Sample Site Vbg - n/a Blood Gas Patient Temperature 37.0 Arterial Blood Date Drawn [id number] Pedro Test N/a Venous Blood pH 7.410 (7.320-7.430) Venous Blood pCO2 at Patient Temp 39.5 mmHg (38.0-54.0) Venous Blood pO2 at Patient Temp < 36.5 mmHg (23.0-48.0) Venous Blood HCO3 24.5 mmol/L (22.0-29.0) Venous Blood Base Excess 0.0 mmol/L (-2.0-3.0) Blood Gas Liter Flow 2.00 Blood Gas Modality Nasal cannula FiO2 % 28.0 Urine Color Light-yellow (Yellow) Urine Clarity Clear (Clear) Urine pH 5.0 (5.0-9.0) Urine Specific [place] 1.014 (1.001-1.035) Urine Protein Negative (Negative) Urine Ketones Negative (Negative) Urine Blood Negative /uL (Negative) Urine Nitrite Negative (Negative) Urine Bilirubin Negative (Negative) Urine Urobilinogen Normal mg/dL (Negative) Urine Leukocyte Esterase Negative /uL (Negative) Urine RBC 1 /hpf (0 - 3) Urine Microscopic WBC 1 /HPF (0-3) Urine Squamous Epithelial Cells None seen /hpf (<5) Urine Bacteria None seen /hpf (None Seen) Urine Hyaline Casts Many /lpf (0 - 2) Urine Glucose Normal mg/dL (Normal) Troponin I High Sensitivity 16 ng/L (</=54) Test 06/04/25 14:40 Lactic Acid Level 2.0 mmol/L (0.4-2.0) Phosphorus Level 3.7 mg/dL (2.4-5.1) Total Bilirubin 0.2 mg/dL (0.2-1.0) Direct Bilirubin < 0.1 mg/dL (<0.3) Aspartate Amino Transferase (AST) 30 U/L (13-40) Alanine Aminotransferase (ALT) 28 U/L (7-40) Alkaline Phosphatase 56 U/L (46-116) Total Protein 8.0 g/dL (5.7-8.2) Albumin 4.4 g/dL (3.2-4.8) Vitamin B12 Level 672 pg/mL (211-911) Vitamin D 25-Hydroxy 104.6 ng/mL (30.0-100) Thyroid Stimulating Hormone (TSH) 1.40 uIU/mL (0.55-4.78) Other Laboratory Tests 06/07/25 11:13 06/05/25 07:32 Brief Hx & Hospital Course: 80-year-old gentleman with chronic respiratory failure with COPD on home oxygen brought to the emergency room because of not been himself with some confusion and some disorientation and hallucinations. Patient admitted with possible pneumonia and sepsis and encephalopathy. Chest x-ray showed perihilar and bibasilar airspace opacities. Small left pleural effusion. Patient was treated with antibiotic and nebulizers. He was started also on prednisone small dose. His urine grew Enterococcus faecalis for which she was given amoxicillin. Patient is being discharged home on doxycycline 100 mg b.i.d. for 10 days and amoxicillin 500 mg t.i.d. for seven days.. He will be given also short treatment with prednisone 10 mg daily for five days. H&H will be rechecked today before discharge. Condition at Discharge: Fair Final Diagnosis/Problems List COPD exacerbation with acute on chronic respiratory failure Pneumonia with possible sepsis and septic encephalopathy Severe anemia Hypertension Diabetes Acute kidney injury and chronic kidney disease 3A UTI with Enterococcus faecalis Right lower extremity BKA Right femoral vein DVT Discharge Disposition: Home Discharge Instruct/Medications Diet: Consistent carbohydrate Activity: Light activity Follow Up/Referral: PCP within three days Medications: Doxycycline 100 mg b.i.d. for 10 days Amoxicillin 500 mg t.i.d. for seven days Prednisone 10 mg b.i.d. for five days Resume previous home medications except no ciprofloxacin Scheduled Apixaban [place] (Eliquis), 1 TAB PO BID, (Reported) Ciprofloxacin Hcl (Cipro), 250 MG PO BID Losartan Potassium (Losartan Potassium), 1 TAB PO DAILY, (Reported) Omeprazole (Omeprazole Dr), 1 CAP PO DAILY, (Reported) 35 Discharge Statement: "Patient was advised to return to the ER or call 911 if any headaches, dizziness, shortness of breath, chest pain, abdominal pain, bleeding, fevers, or worsening of medical condition. Patient was counseled about treatment plan, medications, possible side effects, patientverbalized understanding. All questions were answered to the best of my ability. This discharge took greater then 30 minutes in planning, reviewing documentation, counseling the patient, and discussing with other team members." ASSESSMENT ASSESSMENT Assessment Date of Service: Jun 08, 2025 Billing Provider: CONOR STUART MD Common Visit Codes: [id number] DISCH DAY >30min CONOR STUART MD Jun 08, 2025 09:42
[2025-06-08] MEDS ORDERED: AMOX500C2 PO (09:44)
[2025-06-08] MEDS ORDERED: PRED1PAK9 PO (09:44)
[2025-06-08] MEDS ORDERED: DOXY1CAP57 PO (09:44)
[2025-06-08 11:55] LABS: Hematocrit 25.9 % (41.0-53.0); Hemoglobin 8.2 g/dL (13.5-17.5)
[2025-06-09] VITALS (8 sets, daily range): BP systolic 106–153; BP diastolic 55–79; PULSE 71–90; RESP 16–20; TEMP 97.8–98.1; O2SAT 96–100
--- NOTE | 2025-06-09 09:34 | ECG ---
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
--- NOTE | 2025-06-09 12:24 | DVHPN2 ---
Subjective Patient encephalopathic Reviewed: Care Plan, H&P, Labs, Medications, Previous Orders, Radiology Changes from previous H/P or p: No Changes General: Per HPI Objective Vitals Vital Signs Date Time Temp Pulse Resp B/P (MAP) Pulse Ox O2 Delivery O2 Flow Rate FiO2 06/09/25 09:49 139/73 06/09/25 08:56 98.0 81 20 100 98.0 06/09/25 08:00 Room Air* 0 21 Intake/Output Intake and Output 06/09/25 07:00 Intake Total 580 ml Output Total 151 ml Balance 429 ml Intake Oral 580 ml Output Urine Total 150 ml Stool Total 1 ml # Voids 6 General Appearance: Alert, Oriented X3, Cooperative, No acute distress HEENT: Atraumatic Lungs: Clear to auscultation, Normal air movement Cardiovascular: Regular rate, Normal S1, Normal S2 Abdomen: Normal bowel sounds, Soft, No tenderness Skin: Dry, Intact Psych/Mental Status: Mental status NL, Mood NL Medications Current Medications Medications Dose Ordered Sig/Randall Route Start Time Stop Time Status Last Admin Dose Admin Losartan Potassium 50 mg DAILY PO 06/05/25 10:00 06/09/25 09:48 50 MG Furosemide 20 mg DAILY PO 06/05/25 10:00 06/09/25 09:49 20 MG Atorvastatin Calcium 20 mg HS PO 06/04/25 22:00 06/08/25 22:35 20 MG Montelukast Sodium 10 mg HS PO 06/04/25 22:00 06/08/25 22:33 10 MG Potassium Chloride 10 meq DAILY PO 06/05/25 10:00 06/09/25 09:48 10 MEQ Diagnostic Test (Pha) 1 strip ACHS 06/05/25 07:00 06/09/25 11:22 1 STRIP Insulin Human Regular ACHS SC 06/05/25 07:00 06/08/25 16:50 2 UNITS Dextrose 50 ml UD PRN IV 06/05/25 05:30 Enoxaparin Sodium 50 mg Q12HR SC 06/05/25 10:00 UNV Enoxaparin Sodium 50 mg Q12HR SC 06/05/25 22:00 Cancel Albuterol 2.5 mg Q4HPRN PRN NEB 06/05/25 14:45 Ipratropium [place] 0.5 mg Q4HPRN PRN NEB 06/05/25 14:45 Apixaban 5 mg BID PO 06/05/25 22:00 06/09/25 09:45 5 MG Thiamine HCl 100 mg DAILY IV 06/06/25 14:15 06/09/25 10:01 100 MG Multivitamins 1 tab DAILY PO 06/07/25 10:00 06/09/25 09:48 1 TAB Haloperidol Lactate 2.5 mg Q8HP PRN IM 06/06/25 14:30 06/08/25 20:29 2.5 MG Docusate Sodium 100 mg BIDPRN PRN PO 06/07/25 02:15 06/07/25 02:29 100 MG Acetaminophen 650 mg Q6HP PRN PO 06/07/25 06:45 06/07/25 06:46 650 MG Doxycycline Monohydrate 100 mg Q12HR PO 06/07/25 22:00 06/09/25 09:48 100 MG Prednisone 10 mg DAILY PO 06/08/25 10:00 06/09/25 09:48 10 MG Amoxicillin 500 mg Q8HR PO 06/07/25 22:00 06/08/25 22:34 500 MG Laboratory Results Laboratory Tests 06/05/25 07:32 06/07/25 11:13 06/08/25 11:23 Urinalysis Test 06/04/25 21:00 Urine Color Light-yellow (Yellow) Urine Clarity Clear (Clear) Urine pH 5.0 (5.0-9.0) Urine Specific [place] 1.014 (1.001-1.035) Urine Protein Negative (Negative) Urine Ketones Negative (Negative) Urine Blood Negative /uL (Negative) Urine Nitrite Negative (Negative) Urine Bilirubin Negative (Negative) Urine Urobilinogen Normal mg/dL (Negative) Urine Leukocyte Esterase Negative /uL (Negative) Urine RBC 1 /hpf (0 - 3) Urine Microscopic WBC 1 /HPF (0-3) Urine Squamous Epithelial Cells None seen /hpf (<5) Urine Bacteria None seen /hpf (None Seen) Urine Hyaline Casts Many /lpf (0 - 2) Urine Glucose Normal mg/dL (Normal) Microbiology Microbiology Date/Time Source Procedure Growth Status 06/04/25 21:00 Voided Urine Urine Culture - Final Enterococcus faecalis Complete 06/04/25 14:40 Blood Blood Culture - Preliminary NO GROWTH AFTER 72 HOURS OF INCUBATION. Resulted Labs and/or images reviewed: Labs reviewed by me, Image(s) reviewed by me Assessment/Plan Assessment/Plan Impression: -acute on chronic hypoxic respiratory failure -DVT in right lower extremity,? Chronic -cachexia -COPD -CKD stage IIIB -primary hypertension -diabetes mellitus -nicotine dependence -Acute Delirium Plan: -patient transitioned to oral antibiotic therapy. -stop prednisone, questionable etiology for acute delirium -IM Haldol -bronchodilators -gentle IV hydration -regular insulin sliding scale -repeat labs in am -reassess for discharge tomorrow Total time spent with patient discussing and formulating plan of care: 35 minutes. This medical document was created using an electronic medical record system with [employer] dictation system. Although this document has been carefully reviewed, there may still be some phonetic and typographical errors. These areas are purely typographical due to imperfections of the software programs, and do not reflect any compromise in the patient's medical care. Plan discussed with: Patient, Other (RN) Date of Service: Jun 09, 2025 Billing Provider: YOLA AWAD NP Common Visit Codes: [id number] INP/OBS CARE(HIGH) YOLA AWAD NP Jun 09, 2025 12:24
[2025-06-10] VITALS (10 sets, daily range): BP systolic 116–143; BP diastolic 63–82; PULSE 63–114; RESP 16–19; TEMP 36.4; O2SAT 96–100
--- NOTE | 2025-06-10 14:30 | DVHPN2 ---
Subjective Patient is patient is alert and following commands. Denies any symptoms. Requesting to be discharged home. Reviewed: Care Plan, H&P, Labs, Medications, Previous Orders, Radiology Changes from previous H/P or p: No Changes General: Per HPI Objective Vitals Vital Signs Date Time Temp Pulse Resp B/P (MAP) Pulse Ox O2 Delivery O2 Flow Rate FiO2 06/10/25 13:00 97.6 73 18 138/74 (95) 96 97.6 06/10/25 08:15 Nasal Cannula* 3 32 Intake/Output Intake and Output 06/10/25 07:00 Intake Total 570 ml Balance 570 ml Intake Oral 570 ml # Voids 9 General Appearance: Alert, Oriented X3, Cooperative, No acute distress HEENT: Atraumatic, PERRLA Lungs: Clear to auscultation, Normal air movement Cardiovascular: Regular rate, Normal S1, Normal S2 Abdomen: Normal bowel sounds, Soft, No tenderness Skin: Dry, Intact Psych/Mental Status: Mental status NL, Mood NL Medications Current Medications Medications Dose Ordered Sig/Randall Route Start Time Stop Time Status Last Admin Dose Admin Losartan Potassium 50 mg DAILY PO 06/05/25 10:00 06/10/25 11:35 50 MG Furosemide 20 mg DAILY PO 06/05/25 10:00 06/10/25 11:34 20 MG Atorvastatin Calcium 20 mg HS PO 06/04/25 22:00 06/09/25 21:21 20 MG Montelukast Sodium 10 mg HS PO 06/04/25 22:00 06/09/25 21:21 10 MG Potassium Chloride 10 meq DAILY PO 06/05/25 10:00 06/10/25 11:34 10 MEQ Diagnostic Test (Pha) 1 strip ACHS 06/05/25 07:00 06/10/25 11:30 1 STRIP Insulin Human Regular ACHS SC 06/05/25 07:00 06/09/25 17:00 3 UNITS Dextrose 50 ml UD PRN IV 06/05/25 05:30 Enoxaparin Sodium 50 mg Q12HR SC 06/05/25 10:00 UNV Enoxaparin Sodium 50 mg Q12HR SC 06/05/25 22:00 Cancel Albuterol 2.5 mg Q4HPRN PRN NEB 06/05/25 14:45 Ipratropium Maxwell 0.5 mg Q4HPRN PRN NEB 06/05/25 14:45 Apixaban 5 mg BID PO 06/05/25 22:00 06/10/25 11:35 5 MG Thiamine HCl 100 mg DAILY IV 06/06/25 14:15 06/09/25 10:01 100 MG Multivitamins 1 tab DAILY PO 06/07/25 10:00 06/10/25 11:35 1 TAB Haloperidol Lactate 2.5 mg Q8HP PRN IM 06/06/25 14:30 06/08/25 20:29 2.5 MG Docusate Sodium 100 mg BIDPRN PRN PO 06/07/25 02:15 06/07/25 02:29 100 MG Acetaminophen 650 mg Q6HP PRN PO 06/07/25 06:45 06/07/25 06:46 650 MG Doxycycline Monohydrate 100 mg Q12HR PO 06/07/25 22:00 06/10/25 11:34 100 MG Amoxicillin 500 mg Q8HR PO 06/07/25 22:00 06/10/25 14:14 500 MG Laboratory Results Laboratory Tests 06/05/25 07:32 06/07/25 11:13 06/08/25 11:23 Urinalysis Test 06/04/25 21:00 Urine Color Light-yellow (Yellow) Urine Clarity Clear (Clear) Urine pH 5.0 (5.0-9.0) Urine Specific Fitzpatrick 1.014 (1.001-1.035) Urine Protein Negative (Negative) Urine Ketones Negative (Negative) Urine Blood Negative /uL (Negative) Urine Nitrite Negative (Negative) Urine Bilirubin Negative (Negative) Urine Urobilinogen Normal mg/dL (Negative) Urine Leukocyte Esterase Negative /uL (Negative) Urine RBC 1 /hpf (0 - 3) Urine Microscopic WBC 1 /HPF (0-3) Urine Squamous Epithelial Cells None seen /hpf (<5) Urine Bacteria None seen /hpf (None Seen) Urine Hyaline Casts Many /lpf (0 - 2) Urine Glucose Normal mg/dL (Normal) Microbiology Microbiology Date/Time Source Procedure Growth Status 06/04/25 21:00 Voided Urine Urine Culture - Final Enterococcus faecalis Complete 06/04/25 14:40 Blood Blood Culture - Final NO GROWTH AFTER 5 DAYS OF INCUBATION. Complete Labs and/or images reviewed: Labs reviewed by me, Image(s) reviewed by me Assessment/Plan Assessment/Plan Impression: -acute on chronic hypoxic respiratory failure -DVT in right lower extremity,? Chronic -cachexia -COPD -CKD stage IIIB -primary hypertension -diabetes mellitus -nicotine dependence -Acute Delirium Plan: Events: Acute delirium improved. Probably secondary to UTI as well as prednisone. Patient's hospital bed has been delivered. Daughter requesting for wheelchair. DME order placed. Patient will be discharged home today. -patient transitioned to oral antibiotic therapy. -IM Haldol -bronchodilators -gentle IV hydration -regular insulin sliding scale Total time spent with patient discussing and formulating plan of care: 35 minutes. This medical document was created using an electronic medical record system with [employer] dictation system. Although this document has been carefully reviewed, there may still be some phonetic and typographical errors. These areas are purely typographical due to imperfections of the software programs, and do not reflect any compromise in the patient's medical care. Plan discussed with: Patient, Other (RN) My Orders Orders - YOLA AWAD NP Procedure Category Date Status Time Dme:Wheelchair (Cg DME 06/10/25 Transmitted Will Move) 14:27 Date of Service: Jun 10, 2025 Billing Provider: YOLA AWAD NP Common Visit Codes: [id number] INP/OBS CARE(HIGH) YOLA AWAD NP Jun 10, 2025 14:30
== END 2025-06-10 19:23 | disposition home or self-care (01) | DRG 871 ==
LOC: EDBD 13:56 → ER 13:56 → OVERFLOW 21:09 → CENTRAL 06-05 15:29
PROVIDERS: ADMIT Nurse Practitioner Acute Care; ATTEND Nurse Practitioner Acute Care
DX: A41.9 Sepsis, unspecified organism (principal); G93.41 Metabolic encephalopathy; J96.21 Acute and chronic respiratory failure with hypoxia; J18.9 Pneumonia, unspecified organism; R64 Cachexia; I82.411 Acute embolism and thrombosis of right femoral vein; J44.0 Chronic obstructive pulmonary disease with (acute) lower respiratory infection; J44.1 Chronic obstructive pulmonary disease with (acute) exacerbation; N17.9 Acute kidney failure, unspecified; N39.0 Urinary tract infection, site not specified; E11.22 Type 2 diabetes mellitus with diabetic chronic kidney disease; D50.9 Iron deficiency anemia, unspecified; I12.9 Hypertensive chronic kidney disease with stage 1 through stage 4 chronic kidney disease, or unspecified chronic kidney disease; N18.32 Chronic kidney disease, stage 3b; Z79.899 Other long term (current) drug therapy; F17.200 Nicotine dependence, unspecified, uncomplicated; B95.2 Enterococcus as the cause of diseases classified elsewhere; R65.20 Severe sepsis without septic shock; Z86.73 Personal history of transient ischemic attack (TIA), and cerebral infarction without residual deficits; Z89.511 Acquired absence of right leg below knee; Z99.81 Dependence on supplemental oxygen; Z68.20 Body mass index [BMI] 20.0-20.9, adult; Z85.46 Personal history of malignant neoplasm of prostate
CPT/HCPCS: 36415; 36600; 70450; 71045; 80048; 80076; 81001; 82140; 82306; 82607; 82805; 82962; 83540; 83550; 83605; 83735; 83880; 84100; 84443; 84484; 85014; 85018; 85025; 87040; 87086; 87088; 87186; 93005; 93970; 99291; G0378; J1815; J2543

== ENCOUNTER 2025-06-17 19:54 | Inpatient (IN) | payer MEDICARE, MEDICAID ==
[~2025-06-17] VITALS: Ht 167.6 cm; Wt 71.4 kg
[~2025-06-17 19:54] MED LIST changes: +AMOX500C2 PO; -CIPR-273 PO; +DOXY1CAP57 PO
[2025-06-17 20:40] VITALS: PULSE 90; RESP 20; O2SAT 100
--- NOTE | 2025-06-17 21:05 | ED.PDOC ---
History of Present Illness HPI Comments 80-year-old male BIBA with prior medical history of right BKA, fighting a UTI for a while, diabetes and the chief complaint of ALOC. EMS report on the patient's family calling home due from the patient becoming altered and moaning/groaning for pain and name at this time. Family notes that patient became altered 1 hour ago. EMS denies any other symptoms at this time. REVIEW OF SYSTEMS: Unable to obtain due to altered mental status. PHYSICAL EXAM: General: Awake, alert and confused No acute distress. Skin: Skin in warm, dry and intact without rashes or lesions. HEENT: The head is normocephalic and atraumatic. Conjunctivae are clear without exudates or hemorrhage. Sclera is non-icteric. Neck: Normal range of motion. No JVD. Cardiac: Regular rate Respiratory: No signs of respiratory distress. No Stridor. Extremities: Right BKA Neurological: The patient is awake, alert and oriented to person only. Speech is clear. There is no facial asymmetry. He does not answer questions appropriately. NO upper extremity drift. Psychiatric: Appropriate mood and affect. Good judgement and insight. Chief Complaint: ALOC Time Seen by MD: 21:00 Reviewed Notes: Nurses Notes, Watch Train Inspector Notes Allergies: Coded Allergies: NO KNOWN ALLERGIES (Unverified , 04/18/25) Home Meds Active Scripts Amoxicillin Trihydrate (Amoxicillin) 500 Mg Cap, 1 CAP PO BID for 7 Days, #14 CAP Prov:CONOR STUART MD 06/08/25 Doxycycline Monohydrate (Doxycycline Monohydrate) 100 Mg Cap, 1 CAP PO BID, #20 CAP Prov:CONOR STUART MD 06/08/25 Reported Medications Losartan Potassium (Losartan Potassium) 50 Mg Tab, 1 TAB PO DAILY 04/18/25 Apixaban Base (ELIQUIS) 5 Mg Tab, 1 TAB PO BID 04/18/25 Omeprazole (Omeprazole Dr) 20 Mg Cap, 1 CAP PO DAILY 04/18/25 Information Source: Emergency Med Personnel Mode of Arrival: EMS Severity: Moderate Timing: Minutes Duration: Since onset, Minutes Prehospital treatment: None Past Medical History PAST MEDICAL HISTORY: COPD, CVA, DM, HTN, UTI'S Surgical History: BKA Family History Family History: Reviewed,noncontributory to illness, Unknown Social History Smoker: Non-Smoker Alcohol: Denies ETOH Use Drugs: Denies Drug Use Lives In: Home Was a procedure done? Was a procedure done?: No Differential Dx Considerations may include: Differential diagnosis considered includes but not limited to intracranial hemorrhage, stroke, head injury, seizure, metabolic disturbance, electrolyte imbalance, infection, substance intoxication, psychiatric cause, other systemic illness, other X-Ray, Labs, Meds, VS Vital Signs Date Time Temp Pulse Resp B/P (MAP) Pulse Ox O2 Delivery O2 Flow Rate FiO2 06/17/25 20:40 90 20 100 Nasal Cannula* 2 28 06/17/25 20:40 98.2 90 20 143/75 (97) 93 98.2 06/17/25 20:04 98.9 111 20 156/79 97 98.9 06/17/25 19:58 94 Lab Test 06/17/25 21:35 Range/Units White Blood Count 7.3 4.4-10.8 10^3/uL Red Blood Count 3.17 L 4.5-5.90 10^6/uL Hemoglobin 7.7 L 13.5-17.5 g/dL Hematocrit 25.5 L 41.0-53.0 % Mean Corpuscular Volume 80.6 80.0-100.0 fL Mean Corpuscular Hemoglobin 24.2 L 28.0-32.0 pg Mean Corpuscular Hemoglobin Concent 30.0 L 32.0-36.0 g/dL Red Cell Distribution Width 20.3 H 11.8-14.3 % Platelet Count 391 140-450 10^3/uL Mean Platelet Volume 7.1 6.9-10.8 fL Neutrophils (%) (Auto) 71.8 37.0-80.0 % Lymphocytes (%) (Auto) 16.1 10.0-50.0 % Monocytes (%) (Auto) 7.0 0.0-12.0 % Eosinophils (%) (Auto) 4.3 0.0-7.0 % Basophils (%) (Auto) 0.8 0.0-2.0 % Neutrophils # (Auto) 5.2 1.6-8.6 10 ^3/uL Lymphocytes # (Auto) 1.2 0.4-5.4 10 ^3/uL Monocytes # (Auto) 0.5 0-1.3 10 ^3/uL Eosinophils # (Auto) 0.3 0-0.8 10 ^3/uL Basophils # (Auto) 0.1 0-0.2 10 ^3/uL Nucleated Red Blood Cells 0.1 % Sodium Level 143 136-145 mmol/L Potassium Level 5.1 3.5-5.1 mmol/L Chloride Level 108 H 98-107 mmol/L Carbon Dioxide Level 24 20-31 mmol/L Anion Gap 11 5-15 Blood Urea Nitrogen 26 H 9-23 mg/dL Creatinine 1.47 H 0.700-1.30 mg/dL Glomerular Filtration Rate Calc 48 >90 mL/min BUN/Creatinine Ratio 17.7 10.0-20.0 Serum Glucose 87 74-106 mg/dL Lactic Acid Level 1.3 0.4-2.0 mmol/L Calcium Level 9.7 8.7-10.4 mg/dL Magnesium Level 1.8 1.6-2.6 mg/dL Total Bilirubin 0.3 0.2-1.0 mg/dL Aspartate Amino Transferase (AST) 29 13-40 U/L Alanine Aminotransferase (ALT) 18 7-40 U/L Alkaline Phosphatase 55 46-116 U/L Troponin I High Sensitivity 10 </=54 ng/L B-Type Natriuretic Peptide 24.03 0-100 pg/mL Total Protein 7.9 5.7-8.2 g/dL Albumin 4.2 3.2-4.8 g/dL Lipase 38 12-53 U/L Thyroid Stimulating Hormone (TSH) 0.91 0.55-4.78 uIU/mL Plasma/Serum Blood Alcohol < 3.0 <10 mg/dL Current Medications Medications (Trade) Dose Ordered Sig/Randall Route Start Time Stop Time Status Last Admin Haloperidol Lactate (Haldol) 2.5 mg ONCE ONCE IM 06/17/25 23:45 06/17/25 23:46 06/17/25 23:47 Time of 1ST Reevaluation: 21:30 Reevaluation 1ST: Unchanged Patient Education/Counseling: Need For Follow Up Family Education/Counseling: No Family Present SEPSIS Sepsis Screen Date sepsis recognized/suspect: Jun 17, 2025 Time Sepsis recognized/suspect: 2000 Recent Procedure: No On Antibiotic Therapy: No Respiratory Rate >20: No Heart Rate >90: Yes Temp<36 C (96.8 F) or >38.3 C: No SBP <90 or MAP <65 mmHG: No New Acute Mental Status Change: No Is the patient on CPAP, BIPAP,: No Physician Orders Electrocardigram (06/17/25 20:02) Drug Screen (06/17/25 21:17) Covid19 Antigen Aleida (06/17/25 ) Rapid Influenza A&B (06/17/25 21:17) Urinalysis (06/17/25 21:17) Chest Xray 1 View (06/17/25 21:17) Electrocardigram (06/17/25 21:17) Blood Culture (06/17/25 21:17) Saline Lock (06/17/25 21:17) Straight Cath. (06/17/25 ) Head Without Contrast (06/17/25 21:17) Haloperidol Lactate Injection (Haldol) (06/17/25 23:45) Sodium Chloride 0.9% (06/18/25 00:00) Vital Signs Date Time Temp Pulse Resp B/P (MAP) Pulse Ox O2 Delivery O2 Flow Rate FiO2 06/17/25 20:40 90 20 100 Nasal Cannula* 2 28 06/17/25 20:40 98.2 90 20 143/75 (97) 93 98.2 06/17/25 20:04 98.9 111 20 156/79 97 98.9 06/17/25 19:58 94 Laboratory Tests Test 06/17/25 21:35 Lactic Acid Level 1.3 mmol/L (0.4-2.0) White Blood Count 7.3 10^3/uL (4.4-10.8) Medications Medications Dose Ordered Sig/Randall Route Start Time Stop Time Status Last Admin Dose Admin Haloperidol Lactate 2.5 mg ONCE ONCE IM 06/17/25 23:45 06/17/25 23:46 06/17/25 23:47 Departure 1 Departure Time of Disposition: 23:57 Impression: Primary Impression: Altered mental status Additional Impressions: Anemia ANGEL (acute kidney injury) Disposition: ADMITTED INPATIENT Condition: Guarded Comments Patient admitted to hospitalist service for further treatment, evaluation and monitoring. Urinalysis pending. Critical Care Note Critical Care Time?: No Stability Stability form required: No I personally scribed for ASH FREEMAN MD ([email or web address]) on 06/17/25 at 21:05. Electronically submitted by Jarrell Isidro ([email or web address]). ASH FREEMAN MD Jun 17, 2025 21:05
[2025-06-17 21:49] LABS: Hemoglobin 7.7 g/dL (13.5-17.5); Nucleated Red Blood Cells % 0.1 %
[2025-06-17 21:51] LABS: Hematocrit 25.5 % (41.0-53.0); Mean Corpuscular Hemoglobin 24.2 pg (28.0-32.0); Mean Corpuscular Volume 80.6 fL (80.0-100.0)
[2025-06-17 22:09] LABS: Alanine Aminotransferase 18 U/L (7-40); Albumin 4.2 g/dL (3.2-4.8); Alkaline Phosphatase 55 U/L (46-116); Anion Gap 11 (5-15); BUN/Creatinine Ratio 17.7 (10.0-20.0); Calcium 9.7 mg/dL (8.7-10.4); Carbon Dioxide 24 mmol/L (20-31); Glucose 87 mg/dL (74-106); Magnesium 1.8 mg/dL (1.6-2.6); Sodium 143 mmol/L (136-145); Total Protein 7.9 g/dL (5.7-8.2)
[2025-06-17 22:18] LABS: Bilirubin, Total 0.3 mg/dL (0.2-1.0); Blood Urea Nitrogen 26 mg/dL (9-23); Chloride 108 mmol/L (98-107); Potassium 5.1 mmol/L (3.5-5.1)
[2025-06-17 22:29] LABS: Lipase 38 U/L (12-53)
--- NOTE | 2025-06-17 22:39 | DVH ---
CLINICAL HISTORY: AMS TECHNIQUE: Single view of the chest was obtained. COMPARISON: XY CHEST PORTABLE on DOS: 06/06/25, XY CHEST PORTABLE on DOS: 06/04/25, XY CHEST PORTABLE on DOS: 04/18/25 FINDINGS: The heart size and pulmonary vasculature are normal. The lungs are clear. IMPRESSION: NO ACUTE CARDIOPULMONARY PROCESS.
--- NOTE | 2025-06-17 22:54 | DVH ---
EXAM: CT HEAD WITHOUT CONTRAST INDICATION: AMS TECHNIQUE: CT of the head without intravenous contrast. Radiation Dose : 1. Head: CT Dose: CTDI volume is 36.9 mGy. Dose-length product is 653.86 mGy*cm The dose indicators for CT are the volume Computed Tomography (CT) Dose Index (CTDIvol) and the Dose Length Product (DLP), and are measured in units of mGy and mGy-cm, respectively. These indicators are not patient dose, but values generated from the CT scanner acquisition factors. The report includes radiation exposure data for exposures received during this examination. COMPARISON: CT HEAD WITHOUT CONTRAST on DOS: 06/04/25, CT HEAD WITHOUT CONTRAST on DOS: 04/18/25 FINDINGS: Evaluation is significantly degraded by artifact. No acute territorial infarct, intracranial hemorrhage, or mass effect. There are global involutional changes with compensatory prominence of the ventricles and sulci. Patchy periventricular and subcorti kevin white matter hypoattenuation is nonspecific but may be related to small vessel ischemic disease. 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 The orbits are normal. The paranasal sinuses and mastoid air cells are clear. The osseous structures are unremarkable. IMPRESSION: 1. Artifact degraded evaluation without definite acute intracranial abnormality. Consider a repeat e xamination or MRI in further assessment as clinically indicated. 2. Age-related involutional changes. Chronic microvascular changes. Radiation optimization: All CT scans at this facility use at least one of these dose optimization marilin hniques: automated exposure control mA and/or kV adjustment per patient size (includes targeted exam s where dose is matched to clinical indication) or iterative reconstruction.
[2025-06-17] MEDS: HALOPERIDOL LACTATE 5 MG/ML INJ VIAL IM ONE (23:47)
[2025-06-18] MEDS: SODIUM CHLORIDE 0.9% 500 ML IV ONE
[2025-06-18] MEDS: HALOPERIDOL LACTATE 5 MG/ML INJ VIAL ONE (00:06)
[2025-06-18 01:42] LABS: Amphetamine Screen, Urine Neg (NEGATIVE)
[2025-06-18 01:43] LABS: Barbiturate Scree,Urine Neg (NEGATIVE); Benzodiazephine Screen, Urine Neg (NEGATIVE); Cannabinoid Screen, Urine Neg (NEGATIVE); Cocaine Screen, Urine Neg (NEGATIVE); Opiate Scree,Urine Neg (NEGATIVE); Phencyclidine Screen, Urine Neg (NEGATIVE)
[2025-06-18 01:49] LABS: Urine Protein, UAD Negative (Negative)
[2025-06-18] MEDS ORDERED: ONDANSETRON HCL 4 MG/2 ML VIAL IV PRN (03:00)
[2025-06-18] MEDS ORDERED: MORPHINE SULFATE INJ 2 MG/ml SYRG IV PRN (03:00)
[2025-06-18] MEDS ORDERED: NITROGLYCERIN 0.4 MG SL TAB SL PRN (03:00)
[2025-06-18] MEDS: SODIUM CHLORIDE 0.9% 1,000 ML IV SCH (04:53)
[2025-06-18 08:00] LABS: COVID19 ANTIGEN SOFIA FIA NEGATIVE (NEGATIVE)
[2025-06-18] MEDS: PIPERACILLIN-TAZOB 3.375GM 100 ML IV SCH (09:17)
[2025-06-18 09:30] VITALS: PULSE 110; RESP 22; O2SAT 95
[2025-06-18] MEDS: ASCORBIC ACID 500 MG TAB PO SCH (10:00)
[2025-06-18] MEDS: MULTIPLE VITAMIN TAB PO SCH (10:00)
[2025-06-18] MEDS: ZINC SULFATE 220mg CAP or TAB PO SCH (10:00)
[2025-06-18] MEDS: ENOXAPARIN SOD 30 MG/0.3 ML SYRINGE SC SCH (12:12)
--- NOTE | 2025-06-18 16:48 | DVHHP2 ---
Admitting Diagnosis: ALOC History of Present Illness 80 yo male with hx of BKA, DM, UTI c/o ALOC. Per family, patient has been moaning and groaning in pain and then became altered. While in the emergency department the patient was evaluated by the provider, As per provider: Labs, vital signs, and imagining monitored. Patient will be admitted for further evaluation and treatment. I discussed admission with the patient/family and is in agreement to treatment plan. Patient Family History: Patient reports no known family medical history. Allergies: Coded Allergies: NO KNOWN ALLERGIES (Unverified , 04/18/25) Home Meds Active Scripts Amoxicillin Trihydrate (Amoxicillin) 500 Mg Cap, 1 CAP PO BID for 7 Days, #14 CAP Prov:CONOR STUART MD 06/08/25 Doxycycline Monohydrate (Doxycycline Monohydrate) 100 Mg Cap, 1 CAP PO BID, #20 CAP Prov:CONOR STUART MD 06/08/25 Reported Medications Losartan Potassium (Losartan Potassium) 50 Mg Tab, 1 TAB PO DAILY 04/18/25 Apixaban Base (ELIQUIS) 5 Mg Tab, 1 TAB PO BID 04/18/25 Omeprazole (Omeprazole Dr) 20 Mg Cap, 1 CAP PO DAILY 04/18/25 Current Medications Current Medications Medications (Trade) Dose Ordered Sig/Randall Route PRN Reason Start Time Stop Time Status Last Admin Sodium Chloride 1,000 ml @ 120 mls/hr Q8H20M IV 06/18/25 03:00 06/18/25 17:34 DC 06/18/25 11:20 Acetaminophen (Tylenol Tablet) 325 mg Q4HP PRN PO MILD PAIN (1-3 PAIN SCALE) 06/18/25 03:00 Ondansetron HCl (Zofran) 4 mg Q4HP PRN IV NAUSEA / VOMITING 06/18/25 03:00 Docusate Sodium (Colace Capsule) 100 mg BIDPRN PRN PO FOR CONSTIPATION 06/18/25 03:00 Zinc Sulfate 220 mg DAILY PO 06/18/25 10:00 Ascorbic Acid (Vitamin C Tablet) 500 mg BID PO 06/18/25 10:00 Multivitamins (Mvi Tab) 1 tab DAILY PO 06/18/25 10:00 Enoxaparin Sodium (Lovenox) 30 mg DAILY SC 06/18/25 10:00 06/18/25 16:46 DC 06/18/25 12:12 Nitroglycerin (Ntrostat Sublingual) 0.4 mg Q5MINP PRN SL FOR CHEST PAIN 06/18/25 03:00 Morphine Sulfate 2 mg Q30M PRN IV FOR CHEST PAIN 06/18/25 03:00 06/18/25 18:52 DC Piperacillin Sod/ Tazobactam Sod 100 ml @ 25 mls/hr Q8HR IV 06/18/25 06:00 06/18/25 15:00 Apixaban (Eliquis) 5 mg BID PO 06/18/25 22:00 Pantoprazole Sodium (Protonix) 40 mg DAILY IV 06/19/25 10:00 Hydralazine HCl (Apresoline Injection) 10 mg Q6HP PRN IV SBP>150 06/18/25 16:45 Diagnostic Test (Pha) (Accu-Chek Comfort Curve T) 1 strip ACHS 06/18/25 17:00 06/18/25 18:22 Insulin Human Regular (InsuLIN R) HS SC 06/18/25 22:00 Insulin Human Regular (InsuLIN R) AC SC 06/18/25 17:00 Dextrose 50 ml UD PRN IV Blood Sugar LESS THAN 60 06/18/25 17:00 Dextrose/Sodium Chloride 1,000 ml @ 50 mls/hr Q20H IV 06/18/25 17:45 06/18/25 18:27 Trazodone HCl (Desyrel) 50 mg HS PO 06/18/25 22:00 Haloperidol Lactate (Haldol) 2.5 mg Q8HP PRN IV AGITATION 06/18/25 19:00 06/18/25 20:55 DC Hydromorphone HCl (Dilaudid Injection) 0.25 mg Q4HP PRN IV SEVERE PAIN (7-10 PAIN SCALE) 06/18/25 19:00 Haloperidol Lactate (Haldol) 2.5 mg Q8HP PRN IM AGITATION 06/18/25 21:00 Review of Systems Constitutional: denies chills, denies fever, denies malaise Eyes: denies eye pain, denies vision change ENT: denies ear pain, denies headache, denies nasal congestion, denies painful swallowing, denies voice change Cardiovascular: denies chest pain, denies edema, denies orthopnea, denies palp itations, denies paroxysmal nocturnal dyspnea Respiratory: denies cough, denies shortness of breath Gastrointestinal: denies constipation, denies diarrhea, denies nausea, denies vomiting Genitourinary: denies dysuria, denies frequent urination, denies urethral discharge Musculoskeletal: denies back pain, denies joint pain, denies muscle pain Skin: denies bruising, denies itching, denies rash Neurological: denies focal weakness, denies headache, denies sensory changes Psychiatric: denies anxiety, denies depression Endocrine: denies polydipsia, denies polyuria Hematologic/Lymphatic: denies easy bleeding, denies easy bruising, denies enlarged lymph nodes Allergic/Immunologic: denies allergy, denies hives Vital Signs Vital Signs Date Time Temp Pulse Resp B/P (MAP) Pulse Ox O2 Delivery O2 Flow Rate FiO2 06/18/25 18:00 108 19 154/59 (90) 98 06/18/25 09:30 Room Air* 0 21 06/18/25 07:44 98.4 98.4 Physical Exam General Appearance: alert, no distress HEENT: EOMI, PERRLA, normal external inspect of ears, no icterus, no nasal drainage Neck: no carotid bruit, no jugular venous distention (JVD), no lymphadenopathy Chest: normal thorax Respiratory: clear to auscultation, normal air movement Cardiovascular: regular rate and rhythm, no diastolic murmur, no jugular venous distention (JVD), no rub, no systolic murmur Abdominal: soft, no hepatomegaly, no mass, no splenomegaly, no tenderness Genitourinary: grossly normal external Musculoskeletal: no joint tenderness, no swelling Extremities: normal pulses, no calf tenderness, no clubbing, no cyanosis, no edema Skin: no bruising, no jaundice, no rash Neurological: alert, No focal deficit SEPSIS Sepsis Screen Date sepsis recognized/suspect: Jun 17, 2025 Time Sepsis recognized/suspect: 2099 Recent Procedure: No On Antibiotic Therapy: Yes Respiratory Rate >20: No Heart Rate >90: Yes Temp<36 C (96.8 F) or >38.3 C: No SBP <90 or MAP <65 mmHG: No New Acute Mental Status Change: Yes Is the patient on CPAP, BIPAP,: No Physician Orders Electrocardigram (06/17/25 20:02) Chest Xray 1 View (06/17/25 21:17) Electrocardigram (06/17/25 21:17) Blood Culture (06/17/25 21:17) Saline Lock (06/17/25 21:17) Straight Cath. (06/17/25 ) Head Without Contrast (06/17/25 21:17) Stool Occult Blood (06/17/25 23:57) Admit (06/18/25 02:53) Acetaminophen Tablet (Tylenol Tablet) (06/18/25 03:00) Ondansetron Hcl (Zofran) (06/18/25 03:00) Docusate Sodium Capsule (Colace Capsule) (06/18/25 03:00) Zinc Sulfate (06/18/25 10:00) Ascorbic Acid Tablet (Vitamin C Tablet) (06/18/25 10:00) Multiple Vitamin Tablet (Mvi Tab) (06/18/25 10:00) Complete Blood Count (06/19/25 04:00) Comprehensive Metabolic Panel (06/19/25 04:00) Nitroglycerin Sublingual (Ntrostat Subli (06/18/25 03:00) Stat Ekg For Chest Pain (06/18/25 02:53) Notify Md Of Changes From Base (06/18/25 02:53) Cna Instructor For 24 Hours (06/18/25 02:53) Emergency Dysrhythmia Protocol (06/18/25 02:53) Rhythm Strips Once Every Shift (06/18/25 02:53) Oxygen By Nasal Cannula (06/18/25 02:53) Piperacillin-Tazob 3.375gm (Zosyn 3.375g (06/18/25 06:00) Apixaban (Eliquis) (06/18/25 22:00) Pantoprazole (Protonix) (06/19/25 10:00) Hydralazine Injection (Apresoline Inject (06/18/25 16:45) Glucose Blood (Accu-Chek Comfort Curve T (06/18/25 17:00) Insulin R (Human) (Insulin R) (06/18/25 22:00) Insulin R (Human) (Insulin R) (06/18/25 17:00) Dextrose 50% Syringe (06/18/25 17:00) Cardiac Diet-2gna,Lofat,Lochol (06/18/25 Dinner) D5w/Sod Chlo 0.9% (D5w Ns 0.9%) (06/18/25 17:45) Trazodone Hcl (Desyrel) (06/18/25 22:00) Hydromorphone Injection (Dilaudid Inject (06/18/25 19:00) Haloperidol Lactate Injection (Haldol) (06/18/25 21:00) Vital Signs Date Time Temp Pulse Resp B/P (MAP) Pulse Ox O2 Delivery O2 Flow Rate FiO2 06/18/25 18:00 108 19 154/59 (90) 98 06/18/25 17:00 100 19 166/60 (95) 100 06/18/25 15:00 109 19 170/74 (106) 94 06/18/25 13:00 104 19 120/54 (76) 94 06/18/25 12:00 109 06/18/25 11:00 108 19 129/65 (86) 94 06/18/25 09:30 110 22 95 Room Air* 0 21 06/18/25 09:00 113 20 139/70 (93) 94 06/18/25 08:00 67 06/18/25 07:44 98.4 102 20 102/65 (77) 90 98.4 06/18/25 06:00 98 20 138/32 (67) 90 06/18/25 02:00 98.2 90 20 119/39 (65) 93 98.2 06/18/25 00:00 98.2 90 20 157/125 (136) 93 98.2 06/17/25 22:00 98.2 90 20 143/75 (97) 93 98.2 06/17/25 20:40 90 20 100 Nasal Cannula* 2 28 06/17/25 20:40 98.2 90 20 143/75 (97) 93 98.2 06/17/25 20:04 98.9 111 20 156/79 97 98.9 06/17/25 19:58 94 Laboratory Tests Test 06/17/25 21:35 Lactic Acid Level 1.3 mmol/L (0.4-2.0) White Blood Count 7.3 10^3/uL (4.4-10.8) Medications Medications Dose Ordered Sig/Randall Route Start Time Stop Time Status Last Admin Dose Admin Dextrose/Sodium Chloride 1,000 ml @ 50 mls/hr Q20H IV 06/18/25 17:45 06/18/25 18:27 Diagnostic Test (Pha) 1 strip ACHS 06/18/25 17:00 06/18/25 18:22 Results Labs Test 06/18/25 18:14 06/18/25 00:45 06/17/25 21:35 06/17/25 07:21 Range/Units Hemoglobin A1c 5.7 <5.7 % A1C Triglycerides Level 65 < 150 mg/dL Cholesterol Level 121 < 200 mg/dL LDL Cholesterol 28 < 100 mg/dL HDL Cholesterol 70 H 40-59 mg/dL Urine Color Light-yellow Yellow Urine Clarity Clear Clear Urine pH 5.0 5.0-9.0 Urine Specific [place] 1.016 1.001-1.035 Urine Protein Negative Negative Urine Ketones Negative Negative Urine Blood Negative Negative /uL Urine Nitrite Negative Negative Urine Bilirubin Negative Negative Urine Urobilinogen Normal Negative mg/dL Urine Leukocyte Esterase Negative Negative /uL Urine RBC None seen 0 - 3 /hpf Urine Microscopic WBC < 1 0-3 /HPF Urine Squamous Epithelial Cells Few <5 /hpf Urine Bacteria None seen None Seen /hpf Urine Glucose Normal Normal mg/dL Urine Opiates Screen Neg NEGATIVE Urine Fentanyl Screen Neg NEGATIVE Urine Barbiturates Screen Neg NEGATIVE Urine Phencyclidine Screen Neg NEGATIVE Urine Amphetamines Screen Neg NEGATIVE Urine Benzodiazepines Screen Neg NEGATIVE Urine Cocaine Screen Neg NEGATIVE Urine Cannabinoids Screen Neg NEGATIVE White Blood Count 7.3 4.4-10.8 10^3/uL Red Blood Count 3.17 L 4.5-5.90 10^6/uL Hemoglobin 7.7 L 13.5-17.5 g/dL Hematocrit 25.5 L 41.0-53.0 % Mean Corpuscular Volume 80.6 80.0-100.0 fL Mean Corpuscular Hemoglobin 24.2 L 28.0-32.0 pg Mean Corpuscular Hemoglobin Concent 30.0 L 32.0-36.0 g/dL Red Cell Distribution Width 20.3 H 11.8-14.3 % Platelet Count 391 140-450 10^3/uL Mean Platelet Volume 7.1 6.9-10.8 fL Neutrophils (%) (Auto) 71.8 37.0-80.0 % Lymphocytes (%) (Auto) 16.1 10.0-50.0 % Monocytes (%) (Auto) 7.0 0.0-12.0 % Eosinophils (%) (Auto) 4.3 0.0-7.0 % Basophils (%) (Auto) 0.8 0.0-2.0 % Neutrophils # (Auto) 5.2 1.6-8.6 10 ^3/uL Lymphocytes # (Auto) 1.2 0.4-5.4 10 ^3/uL Monocytes # (Auto) 0.5 0-1.3 10 ^3/uL Eosinophils # (Auto) 0.3 0-0.8 10 ^3/uL Basophils # (Auto) 0.1 0-0.2 10 ^3/uL Nucleated Red Blood Cells 0.1 % Sodium Level 143 136-145 mmol/L Potassium Level 5.1 3.5-5.1 mmol/L Chloride Level 108 H 98-107 mmol/L Carbon Dioxide Level 24 20-31 mmol/L Anion Gap 11 5-15 Blood Urea Nitrogen 26 H 9-23 mg/dL Creatinine 1.47 H 0.700-1.30 mg/dL Glomerular Filtration Rate Calc 48 >90 mL/min BUN/Creatinine Ratio 17.7 10.0-20.0 Serum Glucose 87 74-106 mg/dL Lactic Acid Level 1.3 0.4-2.0 mmol/L Calcium Level 9.7 8.7-10.4 mg/dL Magnesium Level 1.8 1.6-2.6 mg/dL Total Bilirubin 0.3 0.2-1.0 mg/dL Aspartate Amino Transferase (AST) 29 13-40 U/L Alanine Aminotransferase (ALT) 18 7-40 U/L Alkaline Phosphatase 55 46-116 U/L Troponin I High Sensitivity 10 </=54 ng/L B-Type Natriuretic Peptide 24.03 0-100 pg/mL Total Protein 7.9 5.7-8.2 g/dL Albumin 4.2 3.2-4.8 g/dL Lipase 38 12-53 U/L Thyroid Stimulating Hormone (TSH) 0.91 0.55-4.78 uIU/mL Plasma/Serum Blood Alcohol < 3.0 <10 mg/dL Influenza Type A Antigen Negative Negative Influenza Type B Antigen Negative Negative SARS-CoV-2 Antigen (Rapid) Negative NEGATIVE Microbiology Date/Time Source Procedure Growth Status 06/17/25 21:35 Blood Blood Culture - Preliminary NO GROWTH AFTER 24 HOURS OF INCUBATION. Resulted Plan 1. Metabolic encephalopathy Monitor, IV fluids 2. Right BKA Monitor 3. DM II & hyperglycemia Monitor, insulin ss 4. CKD 3a Monitor, IV fluids, 5. Hx DVT right lower extremity Monitor 6. Anemia of chronic disease Monitor 7. COPD Monitor, IV abx Plan discussed with: Patient, Other FARHEEN GARCIA BRAID CUTTER Jun 18, 2025 16:48
[2025-06-18] MEDS ORDERED: DEXTROSE (50%) 50ML SYRG IV PRN (17:00)
[2025-06-18] MEDS: InsuLIN REG 1unit/0.01ml Soln (100units/ml) SC SCH ×2 (18:21→22:00)
[2025-06-18] MEDS: ACCU-CHEK COMFORT CURVE STRIP VI SCH (18:22)
[2025-06-18] MEDS: D5W/SOD CHLO 0.9% 1,000 ML IV SCH (18:27)
[2025-06-18 18:51] LABS: Triglycerides 65 mg/dL (< 150)
[2025-06-18 18:53] LABS: Cholesterol 121 mg/dL (< 200)
[2025-06-18] MEDS ORDERED: HALOPERIDOL LACTATE 5 MG/ML INJ VIAL IV PRN (19:00)
[2025-06-18 19:04] LABS: HDL Cholesterol 70 mg/dL (40-59)
[2025-06-18] MEDS ORDERED: HALOPERIDOL LACTATE 5 MG/ML INJ VIAL IM PRN (21:00)
[2025-06-18] MEDS: APIXABAN 5 MG TAB PO SCH (22:00)
[2025-06-19] VITALS (8 sets, daily range): BP systolic 130–143; BP diastolic 63–81; PULSE 84–104; RESP 17–20; TEMP 98.3–98.8; O2SAT 98–100
[2025-06-19] MEDS: PANTOPRAZOLE 40 MG/10 ML VIAL INJ IV SCH (09:36)
[2025-06-19 14:58] LABS: Hematocrit 26.4 % (41.0-53.0); Hemoglobin 7.9 g/dL (13.5-17.5); Mean Corpuscular Hemoglobin 23.9 pg (28.0-32.0); Mean Corpuscular Volume 79.9 fL (80.0-100.0); Nucleated Red Blood Cells % 0.1 %
[2025-06-19 15:23] LABS: Alanine Aminotransferase 28 U/L (7-40); Albumin 4.0 g/dL (3.2-4.8); Alkaline Phosphatase 62 U/L (46-116); Anion Gap 14 (5-15); BUN/Creatinine Ratio 16.1 (10.0-20.0); Bilirubin, Total 0.3 mg/dL (0.2-1.0); Calcium 9.6 mg/dL (8.7-10.4); Carbon Dioxide 24 mmol/L (20-31); Chloride 106 mmol/L (98-107); Glucose 95 mg/dL (74-106); Potassium 4.4 mmol/L (3.5-5.1); Sodium 144 mmol/L (136-145); Total Protein 7.3 g/dL (5.7-8.2)
[2025-06-19 15:24] LABS: Blood Urea Nitrogen 26 mg/dL (9-23)
--- NOTE | 2025-06-19 16:10 | DVHPN2 ---
Progress Note - Dictate Date Seen: Jun 19, 2025 Medical Necessity Reason Pt with a Central, PICC or Fol: No vital signs Vital Sign Date Time Temp Pulse Resp B/P (MAP) Pulse Ox O2 Delivery O2 Flow Rate FiO2 06/19/25 13:00 98.3 93 17 130/76 (94) 100 98.3 06/19/25 08:30 Nasal Cannula* 4 36 Total Intake and Output 06/18/25 06/18/25 06/19/25 15:00 23:00 07:00 Intake Total 0 ml Balance 0 ml medications Current Medications Medications Dose Ordered Sig/Randall Route Start Time Stop Time Status Last Admin Dose Admin Acetaminophen 325 mg Q4HP PRN PO 06/18/25 03:00 Ondansetron HCl 4 mg Q4HP PRN IV 06/18/25 03:00 Docusate Sodium 100 mg BIDPRN PRN PO 06/18/25 03:00 Zinc Sulfate 220 mg DAILY PO 06/18/25 10:00 06/19/25 09:36 220 MG Ascorbic Acid 500 mg BID PO 06/18/25 10:00 06/19/25 09:36 500 MG Multivitamins 1 tab DAILY PO 06/18/25 10:00 06/19/25 09:36 1 TAB Nitroglycerin 0.4 mg Q5MINP PRN SL 06/18/25 03:00 Piperacillin Sod/ Tazobactam Sod 100 ml @ 25 mls/hr Q8HR IV 06/18/25 06:00 06/19/25 13:59 25 MLS/HR Apixaban 5 mg BID PO 06/18/25 22:00 06/19/25 09:36 5 MG Pantoprazole Sodium 40 mg DAILY IV 06/19/25 10:00 06/19/25 09:36 40 MG Hydralazine HCl 10 mg Q6HP PRN IV 06/18/25 16:45 Diagnostic Test (Pha) 1 strip ACHS 06/18/25 17:00 06/19/25 11:11 1 STRIP Insulin Human Regular HS SC 06/18/25 22:00 Insulin Human Regular AC SC 06/18/25 17:00 06/19/25 12:46 3 UNITS Dextrose 50 ml UD PRN IV 06/18/25 17:00 Dextrose/Sodium Chloride 1,000 ml @ 50 mls/hr Q20H IV 06/18/25 17:45 06/18/25 18:27 50 MLS/HR Trazodone HCl 50 mg HS PO 06/18/25 22:00 Hydromorphone HCl 0.25 mg Q4HP PRN IV 06/18/25 19:00 Haloperidol Lactate 2.5 mg Q8HP PRN IM 06/18/25 21:00 objective General Appearance: alert, no distress HEENT: EOMI, PERRLA, normal external inspect of ears, no icterus, no nasal drainage Neck: no carotid bruit, no jugular venous distention (JVD), no lymphadenopathy Chest: normal thorax Respiratory: clear to auscultation, normal air movement Cardiovascular: regular rate and rhythm, no diastolic murmur, no jugular venous distention (JVD), no rub, no systolic murmur Abdominal: soft, no hepatomegaly, no mass, no splenomegaly, no tenderness Musculoskeletal: no joint tenderness, no swelling Extremities: normal pulses, no calf tenderness, no clubbing, no cyanosis, no edema Skin: no bruising, no jaundice, no rash Neurological: alert, No focal deficit laboratory and microbiology Laboratory Tests 06/19/25 14:14 Test 06/19/25 14:14 Range/Units Serum Glucose 95 74-106 mg/dL Problem List 1. Metabolic encephalopathy Monitor, IV fluids 2. Right BKA Monitor 3. DM II & hyperglycemia Monitor, insulin ss 4. CKD 3a Monitor, IV fluids, 5. Hx DVT right lower extremity Monitor 6. Anemia of chronic disease Monitor 7. COPD Monitor, IV abx Assessment/Plan Subjective Patient is alert and oriented x 1. Objective Patient was admitted with metabolic encephalopathy. Patient has a recurrent UTI. Urinalysis is negative, however patient has been on antibiotics outpatient. Patient has underlying history of right-sided BKA and DVT to right lower extremity. Currently on Zosyn for antibiotics. I did discuss plan of care with patient's niece. plan Broaden antibiotic ertapenem due to recurrent UTI. Niece states patient is confused once he is discharged from the hospital. This is his third admission for UTI. Monitor neurostatus. He is currently wearing mittens. CT of the head is negative for any acute findings. COVID and influenza swab had no acute findings. Hemoglobin A1c is 5.2. Plan discussed with: Patient, Other FARHEEN GARCIA H[employer] MILL WORKER Jun 19, 2025 16:10
[2025-06-19] MEDS: HYDROmorphone HCL 2 MG/ML VL/or syr IV PRN (18:44)
[2025-06-20] VITALS (10 sets, daily range): BP systolic 109–139; BP diastolic 51–78; PULSE 81–127; RESP 16–67; TEMP 97.9–98.4; O2SAT 96–100
[2025-06-20] MEDS ORDERED: ERTAPENEM SOD 1 GM INJ VIAL IM SCH (10:00)
--- NOTE | 2025-06-20 14:10 | DVHPN2 ---
Progress Note Date Seen: Jun 20, 2025 Medical Necessity Reason Pt with a Central, PICC or Fol: No Subjective Review of Systems: CVS:Normal, RESPIRATORY:Normal, GI:Normal, NEURO:Normal Objective vital signs Vital Sign Date Time Temp Pulse Resp B/P (MAP) Pulse Ox O2 Delivery O2 Flow Rate FiO2 06/20/25 09:23 98.2 86 16 113/67 (82) 96 98.2 06/20/25 07:50 Nasal Cannula* 4 36 Total Intake and Output 06/19/25 06/19/25 06/20/25 15:00 23:00 07:00 Intake Total 1485 ml 230 ml Output Total 1050 ml 400 ml Balance 435 ml -170 ml medications Current Medications Medications Dose Ordered Sig/Randall Route Start Time Stop Time Status Last Admin Dose Admin Acetaminophen 325 mg Q4HP PRN PO 06/18/25 03:00 Ondansetron HCl 4 mg Q4HP PRN IV 06/18/25 03:00 Docusate Sodium 100 mg BIDPRN PRN PO 06/18/25 03:00 Zinc Sulfate 220 mg DAILY PO 06/18/25 10:00 06/20/25 09:08 220 MG Ascorbic Acid 500 mg BID PO 06/18/25 10:00 06/20/25 09:08 500 MG Multivitamins 1 tab DAILY PO 06/18/25 10:00 06/20/25 09:08 1 TAB Nitroglycerin 0.4 mg Q5MINP PRN SL 06/18/25 03:00 Apixaban 5 mg BID PO 06/18/25 22:00 06/20/25 09:08 5 MG Pantoprazole Sodium 40 mg DAILY IV 06/19/25 10:00 06/20/25 09:08 40 MG Hydralazine HCl 10 mg Q6HP PRN IV 06/18/25 16:45 Diagnostic Test (Pha) 1 strip ACHS 06/18/25 17:00 06/20/25 12:38 1 STRIP Insulin Human Regular HS SC 06/18/25 22:00 Insulin Human Regular AC SC 06/18/25 17:00 06/20/25 13:04 2 UNITS Dextrose 50 ml UD PRN IV 06/18/25 17:00 Trazodone HCl 50 mg HS PO 06/18/25 22:00 06/19/25 22:46 50 MG Hydromorphone HCl 0.25 mg Q4HP PRN IV 06/18/25 19:00 06/19/25 18:44 0.25 MG Haloperidol Lactate 2.5 mg Q8HP PRN IM 06/18/25 21:00 Ertapenem 1 gm DAILY IM 06/20/25 10:00 Examination: GENERAL:Normal, LUNGS:Normal, CVS:Normal, ABDOMEN:Normal, SKIN:Normal, NEURO:Normal laboratory and microbiology Laboratory Tests 06/19/25 14:14 Test 06/19/25 14:14 Range/Units Serum Glucose 95 74-106 mg/dL Microbiology Date/Time Source Procedure Growth Status 06/17/25 21:35 Blood Blood Culture - Preliminary NO GROWTH AFTER 48 HOURS OF INCUBATION. Resulted Labs and/or images reviewed: Labs reviewed by me, Image(s) reviewed by me Problem List/Assessment/Plan Problem List/Assessment/Plan 1. Metabolic encephalopathy Monitor, IV fluids 2. Right BKA Monitor 3. DM II & hyperglycemia Monitor, insulin ss 4. CKD 3a Monitor, IV fluids, 5. Hx DVT right lower extremity Monitor 6. Anemia of chronic disease Monitor 7. COPD Monitor, IV abx Assessment/Plan Subjective Patient is alert and oriented x 1. Objective Patient was admitted with metabolic encephalopathy. Patient has a recurrent UTI. Urinalysis is negative, however patient has been on antibiotics outpatient. Patient has underlying history of right-sided BKA and DVT to right lower extremity. plan Continue with ertapenem due to recurrent UTI. This is his third admission for UTI. Monitor neurostatus. He is currently wearing mittens. CT of the head is negative for any acute findings. COVID and influenza swab had no acute findings. Plan discussed with: Patient Date of Service: Jun 20, 2025 Billing Provider: SANJUANA TIJERINA MD Common Visit Codes: [id number] INP/OBS CARE (MOD) MIKE ROMERO BALANCE AND HAIRSPRING ASSEMBLER Jun 20, 2025 14:10
[2025-06-20] MEDS: ERTAPENEM SOD INJ 1 GM in SODIUM CHL 0.9% 50 ML IV SCH (15:26)
[2025-06-21 01:00] VITALS: BP 134/81; PULSE 101; RESP 20; TEMP 97.9; O2SAT 100
[2025-06-21 05:00] VITALS: BP 131/74; PULSE 99; RESP 20; TEMP 97.9; O2SAT 100
[2025-06-21 08:30] VITALS: PULSE 80
[2025-06-21 12:16] LABS: Hematocrit 25.3 % (41.0-53.0); Hemoglobin 7.9 g/dL (13.5-17.5); Mean Corpuscular Hemoglobin 24.7 pg (28.0-32.0); Mean Corpuscular Volume 78.9 fL (80.0-100.0); Nucleated Red Blood Cells % 0.0 %
[2025-06-21 12:37] LABS: Alanine Aminotransferase 27 U/L (7-40); Albumin 3.9 g/dL (3.2-4.8); Alkaline Phosphatase 67 U/L (46-116); Anion Gap 9 (5-15); BUN/Creatinine Ratio 15.2 (10.0-20.0); Blood Urea Nitrogen 17 mg/dL (9-23); Calcium 9.1 mg/dL (8.7-10.4); Carbon Dioxide 27 mmol/L (20-31); Chloride 104 mmol/L (98-107); Glucose 95 mg/dL (74-106); Potassium 4.2 mmol/L (3.5-5.1); Sodium 140 mmol/L (136-145); Total Protein 7.4 g/dL (5.7-8.2)
[2025-06-21 12:38] LABS: Bilirubin, Total 0.3 mg/dL (0.2-1.0)
[2025-06-21 13:00] VITALS: BP 91/56; PULSE 85; RESP 20; TEMP 99.4; O2SAT 93
[2025-06-21 16:30] VITALS: BP 144/69; PULSE 80; RESP 19; TEMP 98.8; O2SAT 91
--- NOTE | 2025-06-21 17:40 | DVHPN2 ---
Progress Note Date Seen: Jun 21, 2025 Medical Necessity Reason Pt with a Central, PICC or Fol: No Subjective Review of Systems: CVS:Normal, RESPIRATORY:Normal Objective vital signs Vital Sign Date Time Temp Pulse Resp B/P (MAP) Pulse Ox O2 Delivery O2 Flow Rate FiO2 06/21/25 16:30 98.8 80 19 144/69 (94) 91 98.8 06/21/25 08:30 Nasal Cannula* 4 36 Total Intake and Output 06/20/25 06/20/25 06/21/25 15:00 23:00 07:00 Intake Total 850 ml 1120 ml Output Total 600 ml 1000 ml Balance 250 ml 120 ml medications Current Medications Medications Dose Ordered Sig/Randall Route Start Time Stop Time Status Last Admin Dose Admin Acetaminophen 325 mg Q4HP PRN PO 06/18/25 03:00 Ondansetron HCl 4 mg Q4HP PRN IV 06/18/25 03:00 Docusate Sodium 100 mg BIDPRN PRN PO 06/18/25 03:00 Zinc Sulfate 220 mg DAILY PO 06/18/25 10:00 06/20/25 09:08 220 MG Ascorbic Acid 500 mg BID PO 06/18/25 10:00 06/20/25 22:29 500 MG Multivitamins 1 tab DAILY PO 06/18/25 10:00 06/20/25 09:08 1 TAB Nitroglycerin 0.4 mg Q5MINP PRN SL 06/18/25 03:00 Apixaban 5 mg BID PO 06/18/25 22:00 06/21/25 10:16 5 MG Pantoprazole Sodium 40 mg DAILY IV 06/19/25 10:00 06/20/25 09:08 40 MG Hydralazine HCl 10 mg Q6HP PRN IV 06/18/25 16:45 Diagnostic Test (Pha) 1 strip ACHS 06/18/25 17:00 06/21/25 16:26 1 STRIP Insulin Human Regular HS SC 06/18/25 22:00 Insulin Human Regular AC SC 06/18/25 17:00 06/20/25 13:04 2 UNITS Dextrose 50 ml UD PRN IV 06/18/25 17:00 Trazodone HCl 50 mg HS PO 06/18/25 22:00 06/20/25 22:29 50 MG Hydromorphone HCl 0.25 mg Q4HP PRN IV 06/18/25 19:00 06/19/25 18:44 0.25 MG Haloperidol Lactate 2.5 mg Q8HP PRN IM 06/18/25 21:00 Ertapenem 1 gm/ Sodium Chloride 50 ml @ 100 mls/hr DAILY@1500 IV 06/20/25 15:00 06/21/25 14:25 100 MLS/HR Examination: GENERAL:Normal, LUNGS:Normal, CVS:Normal, ABDOMEN:Normal, SKIN:Normal, NEURO:Normal laboratory and microbiology Laboratory Tests 06/21/25 11:50 Test 06/21/25 11:50 Range/Units Serum Glucose 95 74-106 mg/dL Microbiology Date/Time Source Procedure Growth Status 06/17/25 21:35 Blood Blood Culture - Preliminary NO GROWTH AFTER 72 HOURS OF INCUBATION. Resulted Labs and/or images reviewed: Labs reviewed by me, Image(s) reviewed by me Problem List/Assessment/Plan Problem List/Assessment/Plan 1. Metabolic encephalopathy Monitor, IV fluids 2. Right BKA Monitor 3. DM II & hyperglycemia Monitor, insulin ss 4. CKD 3a Monitor, IV fluids, 5. Hx DVT right lower extremity Monitor 6. Anemia of chronic disease Monitor 7. COPD Monitor, IV abx Assessment/Plan Subjective Patient is alert and oriented x 4. Objective Patient was admitted with metabolic encephalopathy. Patient has a recurrent UTI. Urinalysis is negative, however patient has been on antibiotics outpatient. Patient has underlying history of right-sided BKA and DVT to right lower extremity. plan Continue with ertapenem due to recurrent UTI. This is his third admission for UTI. Monitor neurostatus. He is currently wearing mittens. CT of the head is negative for any acute findings. COVID and influenza swab had no acute findings. Plan discussed with: Patient Date of Service: Jun 21, 2025 Billing Provider: SANJUANA TIJERINA MD Common Visit Codes: [id number] INP/OBS CARE (MOD) MIKE ROMERO [employer] SALES ACCOUNT EXECUTIVE Jun 21, 2025 17:40
[2025-06-21 20:00] VITALS: PULSE 81; RESP 18; O2SAT 100
[2025-06-22 05:00] VITALS: BP 130/69; PULSE 86; RESP 18; TEMP 97.2
[2025-06-22 07:39] LABS: Hematocrit 25.9 % (41.0-53.0); Hemoglobin 7.9 g/dL (13.5-17.5); Mean Corpuscular Hemoglobin 24.3 pg (28.0-32.0); Mean Corpuscular Volume 80.0 fL (80.0-100.0); Nucleated Red Blood Cells % 0.0 %
[2025-06-22 07:49] LABS: Chloride 105 mmol/L (98-107); Potassium 4.1 mmol/L (3.5-5.1); Sodium 140 mmol/L (136-145)
[2025-06-22 07:50] LABS: Anion Gap 11 (5-15); Calcium 9.0 mg/dL (8.7-10.4); Carbon Dioxide 24 mmol/L (20-31)
[2025-06-22 07:55] LABS: BUN/Creatinine Ratio 13.5 (10.0-20.0); Blood Urea Nitrogen 14 mg/dL (9-23); Glucose 84 mg/dL (74-106)
[2025-06-22 08:00] VITALS: PULSE 79
[2025-06-22 08:13] LABS: Total Iron Binding Capacity 302.0 ug/dL (250-425)
[2025-06-22 08:19] LABS: Iron 27.0 ug/dL (65-175)
[2025-06-22 09:00] VITALS: BP 99/54; PULSE 82; RESP 19; TEMP 98.8; O2SAT 100
[2025-06-22] MEDS: IRON SUCROSE COMPLEX 110 ML IV SCH (11:09)
--- NOTE | 2025-06-22 11:23 | MEDREC ---
[facility] Intervention Section I [facility] Intervention: Review courses of therapy (PATIENT URINE CULTURE LAST VISIT (06/04/25) POSITIVE FOR ENTEROCOCCUS FAECALIS NOT SUSCEPTIBLE TO ERTAPENEM. PLEASE CONSIDER REVIEW COURSE OF THERAPY ) LAURA RAY PHARMACIST Jun 22, 2025 11:23
[2025-06-22 13:00] VITALS: BP 136/63; PULSE 86; RESP 20; TEMP 98.1; O2SAT 97
[2025-06-22 17:00] VITALS: BP 130/60; PULSE 84; RESP 19; TEMP 98.4; O2SAT 96
[2025-06-22] MEDS ORDERED: diazePAM 5 MG TAB PO ONE (17:30)
[2025-06-22 20:00] VITALS: PULSE 83
--- NOTE | 2025-06-22 20:46 | DVHINCON2 ---
Date of service: Jun 22, [address] Lele Meng Reason for Consultation Metabolic encephalopathy History of Present Illness Mr. Mcpherson is a 80 years old gentleman with a history of hypertension, diabetes, COPD, UTI, DVT, he was admitted on 06/17/2025 with a chief complaint of altered mental status. At this time, he is awake, oriented to himself, not able to provide history though with reasonable social skills, the history is obtained from his daughter, chart review Because of altered mental status/confusion, the family decided to bring him to medical attention on 06/17/2025, in the hospital, his blood tests showed evidence suggestive of dehydration/acute kidney failure, with appropriate treatment, the patient has been dehydrated, with recovered kidney function tests, but mentally he is not improving accordingly On 06/04/2025, the patient is admitted to the [facility] for altered mental status and the UCI, with antibiotic treatment, the patient recovered mentally In 03/2025, the patient developed altered mental status, and he was found to have UCI, he recovered mentally and physically after antibiotic treatment In 2019, he had left leg weakness, in that he was not able to move it, the patient is seen in [facility] and was said to have stroke The patient has been on blood Eliquis for years. According to his daughter, he had be AKA in 2006 because of blood clot in the mean UDS, 06/18/2025: Negative Plasma alcohol, 06/17/2025: <1 Urinalysis, 06/18/2025: WBC: One, urine leukocyte esterase: Negative WBC/HB/PLT/MCV, 06/22/2025: 6.6/7.9/298/80 CMP, 06/21/2025: Unremarkable HGB A1c, 06/18/2025: 5.7 BUN/CR, 06/17/2025: 26/1.47 06/19/2025: 26/1.61, 06/21/2025: 17/1.12, 06/22/2025: 14/1.04 TG/HDL/LDL/HDL, 06/18/2025: 65/121/28/70 Vitamin B12, 06/04/2025: 672 TSH, 06/17/2025: 0.91 Extremity venous study, 06/04/2025: 1. Nonocclusive thrombus in the right common femoral vein and proximal/mid superficial femoral vein. 2. No left femoropopliteal venous thrombosis Chest x-ray, 06/17/2025: NO ACUTE CARDIOPULMONARY PROCESS CT head, 06/04/2025: No CT evidence of an acute intracranial abnormality. Severe sequelae of chronic microvascular ischemic change and possible sequelae of loss of potter-white differentiation/infarct along bilateral parietal lobes CT head, 06/17/2025: 1. Artifact degraded evaluation without definite acute intracranial abnormality. Consider a repeat examination or MRI in further assessment as clinically indicated. 2. Age-related involutional changes. 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 Family History Hypertension, diabetes Social History He was a tobacco smoker, but no history of drug/alcohol abuse Allergies: Coded Allergies: NO KNOWN ALLERGIES (Unverified , 04/18/25) Home Meds Active Scripts Amoxicillin Trihydrate (Amoxicillin) 500 Mg Cap, 1 CAP PO BID for 7 Days, #14 CAP Prov:CONOR STUART MD 06/08/25 Doxycycline Monohydrate (Doxycycline Monohydrate) 100 Mg Cap, 1 CAP PO BID, #20 CAP Prov:CONOR STUART MD 06/08/25 Reported Medications Losartan Potassium (Losartan Potassium) 50 Mg Tab, 1 TAB PO DAILY 04/18/25 Apixaban Base (ELIQUIS) 5 Mg Tab, 1 TAB PO BID 04/18/25 Omeprazole (Omeprazole Dr) 20 Mg Cap, 1 CAP PO DAILY 04/18/25 Current Medications Current Medications Medications (Trade) Dose Ordered Sig/Randall Route PRN Reason Start Time Stop Time Status Last Admin Iron Sucrose 110 ml @ 110 mls/hr DAILY@1200 IV 06/22/25 12:00 06/26/25 12:59 06/22/25 11:09 Review of Systems As above, the other systems are negative Vital Signs Vital Signs Date Time Temp Pulse Resp B/P (MAP) Pulse Ox O2 Delivery O2 Flow Rate FiO2 06/22/25 17:00 98.4 84 19 130/60 (83) 96 98.4 06/22/25 07:45 Nasal Cannula* 4 36 Physical Exam GENERAL EXAM: General: the patient is well developed and nourished. No acute distress. HEENT: Normocephalic, neck is supple, no carotid bruits. No mass RESPIRATORY: Normal respiratory effort with symmetrical lung expansion. Lungs clear to auscultation. CARDIOVASCULAR: Regular rate and rhythm with no murmurs. S1, S2. ABDOMEN: Soft, nontender, normal bowel sound MUSCULOSKELETAL EXAM: Status post right BKA NEUROLOGICAL: MENTAL STATUS: Subjective SPEECH, LANGUAGE, HIGHER CORTICAL FUNCTION: no aphasia or dysathria. CRANIAL NERVES: #2: Intact visual giraldo to confrontation. #3,4,6: Pupils are equal, round and reactive. EOMs full and conjugate. #5: Facial sensation intact in all three divisions bilaterally. Mandibular strength intact. #7: Facial muscles symmetrical and strength intact. #8: Hearing grossly normal to voice. #9,10: Uvula and soft palate rise in the midline. Swallow and voice are normal. #11: Trapezius and sternomastoid strength intact bilaterally. #12: Tongue midline. No fasciculations or atrophy. SENSATION: Sensation to touch and pinprick is normal. MOTOR: Normal tone in the upper and lower extremity. Normal muscle bulk. No fasc iculations. No abnormal movements or posturing. He moves the arms and the legs REFLEXES: Deep tendon reflexes are symmetrical. No pathological reflexes (status post right BKA CEREBELLAR/COORDINATION: Deferred GAIT/STATION: deferred. Labs/Diagnostic Data Labs Test 06/22/25 16:38 06/22/25 07:22 06/21/25 11:50 06/18/25 18:14 Range/Units POC Glucose 106 70-106 mg/dl White Blood Count 6.6 4.4-10.8 10^3/uL Red Blood Count 3.24 L 4.5-5.90 10^6/uL Hemoglobin 7.9 L 13.5-17.5 g/dL Hematocrit 25.9 L 41.0-53.0 % Mean Corpuscular Volume 80.0 80.0-100.0 fL Mean Corpuscular Hemoglobin 24.3 L 28.0-32.0 pg Mean Corpuscular Hemoglobin Concent 30.4 L 32.0-36.0 g/dL Red Cell Distribution Width 20.0 H 11.8-14.3 % Platelet Count 298 140-450 10^3/uL Mean Platelet Volume 7.2 6.9-10.8 fL Neutrophils (%) (Auto) 71.0 37.0-80.0 % Lymphocytes (%) (Auto) 14.7 10.0-50.0 % Monocytes (%) (Auto) 7.7 0.0-12.0 % Eosinophils (%) (Auto) 5.8 0.0-7.0 % Basophils (%) (Auto) 0.8 0.0-2.0 % Neutrophils # (Auto) 4.7 1.6-8.6 10 ^3/uL Lymphocytes # (Auto) 1.0 0.4-5.4 10 ^3/uL Monocytes # (Auto) 0.5 0-1.3 10 ^3/uL Eosinophils # (Auto) 0.4 0-0.8 10 ^3/uL Basophils # (Auto) 0.1 0-0.2 10 ^3/uL Nucleated Red Blood Cells 0.0 % Sodium Level 140 136-145 mmol/L Potassium Level 4.1 3.5-5.1 mmol/L Chloride Level 105 98-107 mmol/L Carbon Dioxide Level 24 20-31 mmol/L Anion Gap 11 5-15 Blood Urea Nitrogen 14 9-23 mg/dL Creatinine 1.04 0.700-1.30 mg/dL Glomerular Filtration Rate Calc 72 >90 mL/min BUN/Creatinine Ratio 13.5 10.0-20.0 Serum Glucose 84 74-106 mg/dL Calcium Level 9.0 8.7-10.4 mg/dL Iron Level 27 L 65-175 ug/dL Total Iron Binding Capacity 302 250-425 ug/dL Percent Iron Saturation 8.9 L 20-55 % Total Bilirubin 0.3 0.2-1.0 mg/dL Aspartate Amino Transferase (AST) 47 H 13-40 U/L Alanine Aminotransferase (ALT) 27 7-40 U/L Alkaline Phosphatase 67 46-116 U/L Total Protein 7.4 5.7-8.2 g/dL Albumin 3.9 3.2-4.8 g/dL Hemoglobin A1c 5.7 <5.7 % A1C Triglycerides Level 65 < 150 mg/dL Cholesterol Level 121 < 200 mg/dL LDL Cholesterol 28 < 100 mg/dL HDL Cholesterol 70 H 40-59 mg/dL Test 06/18/25 00:45 06/17/25 21:35 06/17/25 07:21 Range/Units Urine Color Light-yellow Yellow Urine Clarity Clear Clear Urine pH 5.0 5.0-9.0 Urine Specific [place] 1.016 1.001-1.035 Urine Protein Negative Negative Urine Ketones Negative Negative Urine Blood Negative Negative /uL Urine Nitrite Negative Negative Urine Bilirubin Negative Negative Urine Urobilinogen Normal Negative mg/dL Urine Leukocyte Esterase Negative Negative /uL Urine RBC None seen 0 - 3 /hpf Urine Microscopic WBC < 1 0-3 /HPF Urine Squamous Epithelial Cells Few <5 /hpf Urine Bacteria None seen None Seen /hpf Urine Glucose Normal Normal mg/dL Urine Opiates Screen Neg NEGATIVE Urine Fentanyl Screen Neg NEGATIVE Urine Barbiturates Screen Neg NEGATIVE Urine Phencyclidine Screen Neg NEGATIVE Urine Amphetamines Screen Neg NEGATIVE Urine Benzodiazepines Screen Neg NEGATIVE Urine Cocaine Screen Neg NEGATIVE Urine Cannabinoids Screen Neg NEGATIVE Lactic Acid Level 1.3 0.4-2.0 mmol/L Magnesium Level 1.8 1.6-2.6 mg/dL Troponin I High Sensitivity 10 </=54 ng/L B-Type Natriuretic Peptide 24.03 0-100 pg/mL Lipase 38 12-53 U/L Thyroid Stimulating Hormone (TSH) 0.91 0.55-4.78 uIU/mL Plasma/Serum Blood Alcohol < 3.0 <10 mg/dL Influenza Type A Antigen Negative Negative Influenza Type B Antigen Negative Negative SARS-CoV-2 Antigen (Rapid) Negative NEGATIVE Microbiology Date/Time Source Procedure Growth Status 06/21/25 06:19 Voided Urine Urine Culture - Preliminary Resulted 06/17/25 21:35 Blood Blood Culture - Preliminary NO GROWTH AFTER 72 HOURS OF INCUBATION. Resulted Assessment Altered mental status Metabolic encephalopathy Other etiology Chronic stroke (2019) DVT Plan/Recommendation Monitoring Supportive treatment Telemetry EEG MR brain scan Eliquis Haldol 2.5mg Q8h RPN for agitation Avoid Ativan or benzodiazepine Up to chair Physical therapy More recommendation per clinical course Prognosis: Poor This medical document was created using an electronic medical record system with [employer] system. Although this document has been carefully reviewed, there may still be some phonetic and typographical errors. These areas are purely typographical due to imperfections of the software programs, and do not reflect any compromise in the patient's medical care. Plan discussed with: Daughter, Other NIKOLAS HULL MD Jun 22, 2025 20:46
[2025-06-22] MEDS: hydrALAZINE HCL 20 MG/ML VL IV PRN (21:38)
[2025-06-23] VITALS (7 sets, daily range): BP systolic 109–129; BP diastolic 50–79; PULSE 65–94; RESP 17–18; TEMP 97.9–99.2; O2SAT 95–99
[2025-06-23] MEDS: diazePAM 5 MG TAB PO ONE (07:49)
--- NOTE | 2025-06-23 11:27 | DVHPN2 ---
Progress Note - Dictate Date Seen: Jun 23, 2025 Medical Necessity Reason Pt with a Central, PICC or Fol: No vital signs Vital Sign Date Time Temp Pulse Resp B/P (MAP) Pulse Ox O2 Delivery O2 Flow Rate FiO2 06/23/25 09:00 98.6 72 18 129/73 (91) 95 98.6 06/23/25 08:00 Nasal Cannula* 4 36 Total Intake and Output 06/22/25 06/22/25 06/23/25 15:00 23:00 07:00 Intake Total 250 ml 400 ml Output Total 800 ml 500 ml Balance -550 ml -100 ml medications Current Medications Medications Dose Ordered Sig/Randall Route Start Time Stop Time Status Last Admin Dose Admin Acetaminophen 325 mg Q4HP PRN PO 06/18/25 03:00 Ondansetron HCl 4 mg Q4HP PRN IV 06/18/25 03:00 Docusate Sodium 100 mg BIDPRN PRN PO 06/18/25 03:00 Zinc Sulfate 220 mg DAILY PO 06/18/25 10:00 06/22/25 09:19 220 MG Ascorbic Acid 500 mg BID PO 06/18/25 10:00 06/22/25 21:38 500 MG Multivitamins 1 tab DAILY PO 06/18/25 10:00 06/22/25 09:18 1 TAB Nitroglycerin 0.4 mg Q5MINP PRN SL 06/18/25 03:00 Apixaban 5 mg BID PO 06/18/25 22:00 06/22/25 21:38 5 MG Pantoprazole Sodium 40 mg DAILY IV 06/19/25 10:00 06/23/25 10:03 40 MG Hydralazine HCl 10 mg Q6HP PRN IV 06/18/25 16:45 06/22/25 21:38 10 MG Diagnostic Test (Pha) 1 strip ACHS 06/18/25 17:00 06/23/25 10:58 1 STRIP Insulin Human Regular HS SC 06/18/25 22:00 Insulin Human Regular AC SC 06/18/25 17:00 06/20/25 13:04 2 UNITS Dextrose 50 ml UD PRN IV 06/18/25 17:00 Trazodone HCl 50 mg HS PO 06/18/25 22:00 06/22/25 21:37 50 MG Hydromorphone HCl 0.25 mg Q4HP PRN IV 06/18/25 19:00 06/19/25 18:44 0.25 MG Haloperidol Lactate 2.5 mg Q8HP PRN IM 06/18/25 21:00 Ertapenem 1 gm/ Sodium Chloride 50 ml @ 100 mls/hr DAILY@1500 IV 06/20/25 15:00 06/22/25 14:40 100 MLS/HR Iron Sucrose 110 ml @ 110 mls/hr DAILY@1200 IV 06/22/25 12:00 06/26/25 12:59 06/23/25 11:19 110 MLS/HR objective General Appearance: alert, no distress HEENT: EOMI, PERRLA, normal external inspect of ears, no icterus, no nasal drainage Neck: no carotid bruit, no jugular venous distention (JVD), no lymphadenopathy Chest: normal thorax Respiratory: clear to auscultation, normal air movement Cardiovascular: regular rate and rhythm, no diastolic murmur, no jugular venous distention (JVD), no rub, no systolic murmur Abdominal: soft, no hepatomegaly, no mass, no splenomegaly, no tenderness Musculoskeletal: no joint tenderness, no swelling Extremities: normal pulses, no calf tenderness, no clubbing, no cyanosis, no edema Skin: no bruising, no jaundice, no rash Neurological: alert, No focal deficit laboratory and microbiology Laboratory Tests 06/22/25 07:22 Test 06/22/25 07:22 Range/Units Serum Glucose 84 74-106 mg/dL Problem List 1. Metabolic encephalopathy Monitor, IV fluids 2. Right BKA Monitor 3. DM II & hyperglycemia Monitor, insulin ss 4. CKD 3a Monitor, IV fluids, 5. Hx DVT right lower extremity Monitor 6. Anemia of chronic disease Monitor 7. COPD Monitor, IV abx Assessment/Plan Subjective Patient is alert and oriented x 1. Objective Sitter is at bedside. Patient apparently had EEG and is lethargic today from medication that was given. Patient was admitted for metabolic encephalopathy. Patient has underling history of CKD stage 3a, right BKA, diabetes type 2, COPD, and anemia. Pateint may have some undiagnosed dementia. He is having some sundowner behavior where he gets confused and is getting out of bed at night. MRI results are still pending. Plan Continue current treatment. Monitor MRI results and EEG. Neurology recommendations appreciated. Continue antibiotics with Invanz 1g daily. Dietary Evaluation Review Comments: 1) Continue 45g CCHO cardiac diet 2) Encourage optimal PO intake 3) Follow-up with cardiology, pulmonology, and nephrology 4) Continue to monitor I&O, labs, and skin integrity Expected Outcomes/Goals: 1) appetite and labs to improve 2) f/u in 3-5 days Plan discussed with: Patient, Other FARHEEN GARCIA NP Jun 23, 2025 11:27
--- NOTE | 2025-06-23 15:52 | DVH ---
CLINICAL HISTORY: Mental status change. TECHNIQUE: Routine multiplanar imaging of the brain was performed without gadolinium contrast. COMPARISON: CT HEAD WITHOUT CONTRAST on DOS: 06/17/25, CT HEAD WITHOUT CONTRAST on DOS: 06/04/25, CT H EAD WITHOUT CONTRAST on DOS: 04/18/25 FINDINGS: Evaluation is limited due to image degradation secondary to patient motion. Please note that axial gr adient images were not acquired due to patient condition. There is no abnormal restricted diffusion to suggest acute infarction. There is mild brain volume loss. T2 hyperintense foci within the white matter both cerebral hemispher es is most compatible with an advanced burden of nonspecific chronic small vessel ischemic changes. T here are old bilateral parietal lobe infarcts. There is no evidence for acute ischemic changes, mass, mass effect, or extra-axial fluid collection. There is no hydrocephalus or midline shift. The cerebral sulci and subarachnoid cisterns are not effa tabitha. The imaged paranasal sinuses are clear. There has been bilateral cataract extraction. The midline str uctures, including the corpus callosum, are unremarkable. The intracranial flow voids are maintained. IMPRESSION: Limited exam with no acute intracranial abnormality seen. No evidence for acute infarct. Mild brain volume loss. Advanced chronic small vessel ischemic change. 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 Bilateral cataract extraction.
--- NOTE | 2025-06-23 22:59 | DVHPN2 ---
Progress Note - Dictate Date Seen: Jun 23, 2025 Medical Necessity Reason Pt with a Central, PICC or Fol: No Subjective Mr. Mcpherson is a 80 years old gentleman with a history of hypertension, diabetes, COPD, UTI, DVT, he was admitted on 06/17/2025 with a chief complaint of altered mental status. I have seen and examined the patient, I have talked to his nurse and sitter. He looks weaker today, only oriented to himself. UDS, 06/18/2025: Negative Plasma alcohol, 06/17/2025: <1 Urinalysis, 06/18/2025: WBC: One, urine leukocyte esterase: Negative WBC/HB/PLT/MCV, 06/22/2025: 6.6/7.9/298/80 CMP, 06/21/2025: Unremarkable HGB A1c, 06/18/2025: 5.7 BUN/CR, 06/17/2025: 26/1.47 06/19/2025: 26/1.61, 06/21/2025: 17/1.12, 06/22/2025: 14/1.04 TG/HDL/LDL/HDL, 06/18/2025: 65/121/28/70 Vitamin B12, 06/04/2025: 672 TSH, 06/17/2025: 0.91 Extremity venous study, 06/04/2025: 1. Nonocclusive thrombus in the right common femoral vein and proximal/mid superficial femoral vein. 2. No left femoropopliteal venous thrombosis Chest x-ray, 06/17/2025: NO ACUTE CARDIOPULMONARY PROCESS CT head, 06/04/2025: No CT evidence of an acute intracranial abnormality. Severe sequelae of chronic microvascular ischemic change and possible sequelae of loss of potter-white differentiation/infarct along bilateral parietal lobes CT head, 06/17/2025: 1. Artifact degraded evaluation without definite acute intracranial abnormality. Consider a repeat examination or MRI in further assessment as clinically indicated. 2. Age-related involutional changes. Chronic microvascular changes (poor quality) MRI head, 06/03/2025: Limited exam with no acute intracranial abnormality seen. No evidence for acute infarct. Mild brain volume loss. Advanced chronic small vessel ischemic change. 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 Bilateral cataract extraction. vital signs Vital Sign Date Time Temp Pulse Resp B/P (MAP) Pulse Ox O2 Delivery O2 Flow Rate FiO2 06/23/25 20:00 Nasal Cannula* 4 36 06/23/25 17:00 98.0 69 18 111/79 (90) 95 98.0 Total Intake and Output 06/22/25 06/22/25 06/23/25 15:00 23:00 07:00 Intake Total 250 ml 400 ml Output Total 800 ml 500 ml Balance -550 ml -100 ml medications Current Medications Medications Dose Ordered Sig/Randall Route Start Time Stop Time Status Last Admin Dose Admin Acetaminophen 325 mg Q4HP PRN PO 06/18/25 03:00 Ondansetron HCl 4 mg Q4HP PRN IV 06/18/25 03:00 Docusate Sodium 100 mg BIDPRN PRN PO 06/18/25 03:00 Zinc Sulfate 220 mg DAILY PO 06/18/25 10:00 06/22/25 09:19 220 MG Ascorbic Acid 500 mg BID PO 06/18/25 10:00 06/23/25 22:28 500 MG Multivitamins 1 tab DAILY PO 06/18/25 10:00 06/22/25 09:18 1 TAB Nitroglycerin 0.4 mg Q5MINP PRN SL 06/18/25 03:00 Apixaban 5 mg BID PO 06/18/25 22:00 06/23/25 22:28 5 MG Pantoprazole Sodium 40 mg DAILY IV 06/19/25 10:00 06/23/25 10:03 40 MG Hydralazine HCl 10 mg Q6HP PRN IV 06/18/25 16:45 06/22/25 21:38 10 MG Diagnostic Test (Pha) 1 strip ACHS 06/18/25 17:00 06/23/25 22:28 1 STRIP Insulin Human Regular HS SC 06/18/25 22:00 Insulin Human Regular AC SC 06/18/25 17:00 06/20/25 13:04 2 UNITS Dextrose 50 ml UD PRN IV 06/18/25 17:00 Trazodone HCl 50 mg HS PO 06/18/25 22:00 06/23/25 22:28 50 MG Hydromorphone HCl 0.25 mg Q4HP PRN IV 06/18/25 19:00 06/19/25 18:44 0.25 MG Haloperidol Lactate 2.5 mg Q8HP PRN IM 06/18/25 21:00 Ertapenem 1 gm/ Sodium Chloride 50 ml @ 100 mls/hr DAILY@1500 IV 06/20/25 15:00 06/23/25 14:22 100 MLS/HR Iron Sucrose 110 ml @ 110 mls/hr DAILY@1200 IV 06/22/25 12:00 06/26/25 12:59 06/23/25 11:19 110 MLS/HR objective General: the patient is well developed and nourished. No acute distress. MUSCULOSKELETAL EXAM: Status post right BKA MENTAL STATUS: Subjective SPEECH, LANGUAGE, HIGHER CORTICAL FUNCTION: no aphasia or dysathria. CRANIAL NERVES: Pupils are equal, round and reactive. EOMs full and conjugate. Facial sensation intact in all three divisions bilaterally. Mandibular strength intact. Facial muscles symmetrical and strength intact. Tongue midline. No fasciculations or atrophy. SENSATION: Sensation to touch and pinprick is normal. MOTOR: Normal tone in the upper and lower extremity. Normal muscle bulk. No fasciculations. No abnormal movements or posturing. He moves the arms and the legs REFLEXES: Deep tendon reflexes are symmetrical. No pathological reflexes (status post right BKA CEREBELLAR/COORDINATION: Deferred GAIT/STATION: deferred laboratory and microbiology Laboratory Tests 06/22/25 07:22 Test 06/22/25 07:22 Range/Units Serum Glucose 84 74-106 mg/dL Problem List Altered mental status Metabolic encephalopathy Other etiology Chronic stroke (2019) DVT Assessment/Plan Monitoring Supportive treatment Telemetry EEG Eliquis Haldol 2.5mg Q8h RPN for agitation Avoid Ativan or benzodiazepine Up to chair Physical therapy More recommendation per clinical course This medical document was created using an electronic medical record system with [employer] dictation system. Although this document has been carefully reviewed, there may still be some phonetic and typographical errors. These areas are purely typographical due to imperfections of the software programs, and do not reflect any compromise in the patient's medical care. Prognosis poor Dietary Evaluation Review Comments: 1) Continue 45g CCHO cardiac diet 2) Encourage optimal PO intake 3) Follow-up with cardiology, pulmonology, and nephrology 4) Continue to monitor I&O, labs, and skin integrity Expected Outcomes/Goals: 1) appetite and labs to improve 2) f/u in 3-5 days Plan discussed with: Other NIKOLAS HULL MD Jun 23, 2025 22:59
--- NOTE | 2025-06-23 23:45 | DVHEEG2 ---
Neurology EEG Procedural Note Procedural Note EXAM DATE: 06/23/2025 REFERRING DOCTOR: Dr. Hull TECHNIQUE: Eighteen channels of EEG, 2 channels of EOG, and 1 channel of EKG were recorded using the [employer] 10/20 system. CLINICAL DATA: The patient was referred for an EEG evaluation for the evidence of seizure disorder. MEDICATIONS: See the chart BACKGROUND ACTIVITY: The record showed low-amplitude diffuse theta activity over both hemispheres, that was reactive to external stimuli ACTIVATION: Hyperventilation: Not done Photic Stimulation: No photic convulsive response Sleep: Not seen IMPRESSION: This is a mildly abnormal EEG, this EEG is seen in mild cerebral dysfunction due to metabolic/hypoxic encephalopathy or medication effects, please correlate clinically. The EKG channel showed a regular heart rate of 78/min. [place] [address] NIKOLAS HULL MD Jun 23, 2025 23:45
[2025-06-24] VITALS (8 sets, daily range): BP systolic 105–132; BP diastolic 51–67; PULSE 78–94; RESP 16–20; TEMP 97–98.2; O2SAT 94–100
--- NOTE | 2025-06-24 10:25 | DVHPN2 ---
Progress Note - Dictate Date Seen: Jun 24, 2025 Medical Necessity Reason Pt with a Central, PICC or Fol: No Subjective Mr. Mcpherson is a 80 years old gentleman with a history of hypertension, diabetes, COPD, UTI, DVT, he was admitted on 06/17/2025 with a chief complaint of altered mental status. I have seen and examined the patient, I have talked to his nurse and sitter. He is doing better this morning, awake, oriented to person, place, he knows year, he follows verbal commands, reasonable social skills. UDS, 06/18/2025: Negative Plasma alcohol, 06/17/2025: <1 Urinalysis, 06/18/2025: WBC: One, urine leukocyte esterase: Negative WBC/HB/PLT/MCV, 06/22/2025: 6.6/7.9/298/80 CMP, 06/21/2025: Unremarkable HGB A1c, 06/18/2025: 5.7 BUN/CR, 06/17/2025: 26/1.47 06/19/2025: 26/1.61, 06/21/2025: 17/1.12, 06/22/2025: 14/1.04 TG/HDL/LDL/HDL, 06/18/2025: 65/121/28/70 Vitamin B12, 06/04/2025: 672 TSH, 06/17/2025: 0.91 EEG, 06/23/2025: Mildly abnormal EEG Extremity venous study, 06/04/2025: 1. Nonocclusive thrombus in the right common femoral vein and proximal/mid superficial femoral vein. 2. No left femoropopliteal venous thrombosis Chest x-ray, 06/17/2025: NO ACUTE CARDIOPULMONARY PROCESS CT head, 06/04/2025: No CT evidence of an acute intracranial abnormality. Severe sequelae of chronic microvascular ischemic change and possible sequelae of loss of potter-white differentiation/infarct along bilateral parietal lobes CT head, 06/17/2025: 1. Artifact degraded evaluation without definite acute intracranial abnormality. Consider a repeat examination or MRI in further assessment as clinically indicated. 2. Age-related involutional changes. Chronic microvascular changes (poor quality) MRI head, 06/03/2025: Limited exam with no acute intracranial abnormality seen. No evidence for acute infarct. Mild brain volume loss. Advanced chronic small vessel ischemic change. 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 Bilateral cataract extraction. vital signs Vital Sign Date Time Temp Pulse Resp B/P (MAP) Pulse Ox O2 Delivery O2 Flow Rate FiO2 06/24/25 08:54 97.5 91 18 105/54 (71) 100 97.5 06/23/25 20:00 Nasal Cannula* 4 36 Total Intake and Output 06/23/25 06/23/25 06/24/25 15:00 23:00 07:00 Intake Total 160 ml 100 ml 175 ml Output Total 375 ml 500 ml Balance 160 ml -275 ml -325 ml medications Current Medications Medications Dose Ordered Sig/Randall Route Start Time Stop Time Status Last Admin Dose Admin Acetaminophen 325 mg Q4HP PRN PO 06/18/25 03:00 Ondansetron HCl 4 mg Q4HP PRN IV 06/18/25 03:00 Docusate Sodium 100 mg BIDPRN PRN PO 06/18/25 03:00 Zinc Sulfate 220 mg DAILY PO 06/18/25 10:00 06/24/25 10:09 220 MG Ascorbic Acid 500 mg BID PO 06/18/25 10:00 06/24/25 10:14 500 MG Multivitamins 1 tab DAILY PO 06/18/25 10:00 06/24/25 10:14 1 TAB Nitroglycerin 0.4 mg Q5MINP PRN SL 06/18/25 03:00 Apixaban 5 mg BID PO 06/18/25 22:00 06/24/25 10:14 5 MG Pantoprazole Sodium 40 mg DAILY IV 06/19/25 10:00 06/24/25 10:15 40 MG Hydralazine HCl 10 mg Q6HP PRN IV 06/18/25 16:45 06/22/25 21:38 10 MG Diagnostic Test (Pha) 1 strip ACHS 06/18/25 17:00 06/24/25 06:46 1 STRIP Insulin Human Regular HS SC 06/18/25 22:00 Insulin Human Regular AC SC 06/18/25 17:00 06/20/25 13:04 2 UNITS Dextrose 50 ml UD PRN IV 06/18/25 17:00 Trazodone HCl 50 mg HS PO 06/18/25 22:00 06/23/25 22:28 50 MG Hydromorphone HCl 0.25 mg Q4HP PRN IV 06/18/25 19:00 06/19/25 18:44 0.25 MG Haloperidol Lactate 2.5 mg Q8HP PRN IM 06/18/25 21:00 Ertapenem 1 gm/ Sodium Chloride 50 ml @ 100 mls/hr DAILY@1500 IV 06/20/25 15:00 06/23/25 14:22 100 MLS/HR Iron Sucrose 110 ml @ 110 mls/hr DAILY@1200 IV 06/22/25 12:00 06/26/25 12:59 06/23/25 11:19 110 MLS/HR objective General: the patient is well developed and nourished. No acute distress. MUSCULOSKELETAL EXAM: Status post right BKA MENTAL STATUS: Subjective SPEECH, LANGUAGE, HIGHER CORTICAL FUNCTION: no aphasia or dysathria. CRANIAL NERVES: Pupils are equal, round and reactive. EOMs full and conjugate. Facial sensation intact in all three divisions bilaterally. Mandibular strength intact. Facial muscles symmetrical and strength intact. Tongue midline. No fasciculations or atrophy. SENSATION: Sensation to touch and pinprick is normal. MOTOR: Normal tone in the upper and lower extremity. Normal muscle bulk. No fasciculations. No abnormal movements or posturing. He moves the arms and the legs REFLEXES: Deep tendon reflexes are symmetrical. No pathological reflexes (status post right BKA CEREBELLAR/COORDINATION: Deferred GAIT/STATION: deferred laboratory and microbiology Laboratory Tests 06/22/25 07:22 Test 06/22/25 07:22 Range/Units Serum Glucose 84 74-106 mg/dL Problem List Altered mental status Metabolic encephalopathy Other etiology Chronic stroke (2019) DVT Assessment/Plan Monitoring Supportive treatment Telemetry Eliquis Haldol 2.5mg Q8h RPN for agitation Avoid Ativan or benzodiazepine Up to chair Physical therapy More recommendation per clinical course This medical document was created using an electronic medical record system with [employer] dictation system. Although this document has been carefully reviewed, there may still be some phonetic and typographical errors. These areas are purely typographical due to imperfections of the software programs, and do not reflect any compromise in the patient's medical care. Prognosis poor Dietary Evaluation Review Comments: 1) Continue 45g CCHO cardiac diet 2) Encourage optimal PO intake 3) Follow-up with cardiology, pulmonology, and nephrology 4) Continue to monitor I&O, labs, and skin integrity Expected Outcomes/Goals: 1) appetite and labs to improve 2) f/u in 3-5 days Plan discussed with: Other NIKOLAS HULL MD Jun 24, 2025 10:25
--- NOTE | 2025-06-24 13:33 | ECG ---
[facility] Test Date: 2025-06-17 Test Time: 19:58:42 Pat Name: [facility] Department: [facility] ED Patient ID: [facility]-[id number] Room: 0216T Gender: M Template Layout Worker: SHEFALI : 1945 Requested By: EMERGENCY EMERGENCY Order Number: [id number] Reading MD: Kelby Prieto Measurements Intervals [place] Rate: 94 P: 0 [place]: 0 QRS: 69 QRSD: 138 T: 48 QT: 344 QTc: 431 Interpretive Statements Normal sinus rhythm Paired ventricular premature complexes Nonspecific intraventricular conduction delay Artifact in lead(s) I,II,III,aVR,aVL,aVF,V2,V3,V4,V5,V6 Electronically Signed On 07-01-2025 13:12:20 PST by Kelby Prieto Please click the below link to view image of tracing.
[2025-06-24] MEDS: ACETAMINOPHEN 325 MG TAB PO PRN (17:03)
--- NOTE | 2025-06-24 19:13 | DVHPN2 ---
Progress Note - Dictate Date Seen: Jun 24, 2025 Medical Necessity Reason Pt with a Central, PICC or Fol: No vital signs Vital Sign Date Time Temp Pulse Resp B/P (MAP) Pulse Ox O2 Delivery O2 Flow Rate FiO2 06/24/25 16:28 97.8 84 20 125/65 (85) 99 97.8 06/24/25 08:00 Nasal Cannula* 4 36 Total Intake and Output 06/23/25 06/23/25 06/24/25 15:00 23:00 07:00 Intake Total 160 ml 100 ml 175 ml Output Total 375 ml 500 ml Balance 160 ml -275 ml -325 ml medications Current Medications Medications Dose Ordered Sig/Randall Route Start Time Stop Time Status Last Admin Dose Admin Acetaminophen 325 mg Q4HP PRN PO 06/18/25 03:00 06/24/25 17:03 325 MG Ondansetron HCl 4 mg Q4HP PRN IV 06/18/25 03:00 Docusate Sodium 100 mg BIDPRN PRN PO 06/18/25 03:00 Zinc Sulfate 220 mg DAILY PO 06/18/25 10:00 06/24/25 10:09 220 MG Ascorbic Acid 500 mg BID PO 06/18/25 10:00 06/24/25 10:14 500 MG Multivitamins 1 tab DAILY PO 06/18/25 10:00 06/24/25 10:14 1 TAB Nitroglycerin 0.4 mg Q5MINP PRN SL 06/18/25 03:00 Apixaban 5 mg BID PO 06/18/25 22:00 06/24/25 10:14 5 MG Pantoprazole Sodium 40 mg DAILY IV 06/19/25 10:00 06/24/25 10:15 40 MG Hydralazine HCl 10 mg Q6HP PRN IV 06/18/25 16:45 06/22/25 21:38 10 MG Diagnostic Test (Pha) 1 strip ACHS 06/18/25 17:00 06/24/25 17:08 1 STRIP Insulin Human Regular HS SC 06/18/25 22:00 Insulin Human Regular AC SC 06/18/25 17:00 06/20/25 13:04 2 UNITS Dextrose 50 ml UD PRN IV 06/18/25 17:00 Trazodone HCl 50 mg HS PO 06/18/25 22:00 06/23/25 22:28 50 MG Hydromorphone HCl 0.25 mg Q4HP PRN IV 06/18/25 19:00 06/19/25 18:44 0.25 MG Haloperidol Lactate 2.5 mg Q8HP PRN IM 06/18/25 21:00 Ertapenem 1 gm/ Sodium Chloride 50 ml @ 100 mls/hr DAILY@1500 IV 06/20/25 15:00 06/24/25 15:33 100 MLS/HR Iron Sucrose 110 ml @ 110 mls/hr DAILY@1200 IV 06/22/25 12:00 06/26/25 12:59 06/24/25 13:26 110 MLS/HR objective General Appearance: alert, no distress HEENT: EOMI, PERRLA, normal external inspect of ears, no icterus, no nasal drainage Neck: no carotid bruit, no jugular venous distention (JVD), no lymphadenopathy Chest: normal thorax Respiratory: clear to auscultation, normal air movement Cardiovascular: regular rate and rhythm, no diastolic murmur, no jugular venous distention (JVD), no rub, no systolic murmur Abdominal: soft, no hepatomegaly, no mass, no splenomegaly, no tenderness Musculoskeletal: no joint tenderness, no swelling Extremities: normal pulses, no calf tenderness, no clubbing, no cyanosis, no edema Skin: no bruising, no jaundice, no rash Neurological: alert, No focal deficit laboratory and microbiology Laboratory Tests 06/22/25 07:22 Test 06/22/25 07:22 Range/Units Serum Glucose 84 74-106 mg/dL Problem List 1. Metabolic encephalopathy Monitor, IV fluids 2. Right BKA Monitor 3. DM II & hyperglycemia Monitor, insulin ss 4. CKD 3a Monitor, IV fluids, 5. Hx DVT right lower extremity Monitor 6. Anemia of chronic disease Monitor 7. COPD Monitor, IV abx Assessment/Plan Subjective Patient is awake and alert. Objective Patient is aware he is in the hospital. He appears to be calm. Sitter is at bedside. Patient was admitted for metabolic encephalopathy. He possibly has underlying dementia which is undiagnosed. Patient ate better today. Urine culture is negative. Plan Continue current treatment. Awaiting physical therapy evaluation. Continue IV iron. Will plan to update patient's daughter Ran in regards to plan of care. Dietary Evaluation Review Comments: 1) [facility] diet 2) Encourage optimal PO intake 3) Follow-up with cardiology, pulmonology, and nephrology 4) Continue to monitor I&O, labs, and skin integrity Expected Outcomes/Goals: 1) appetite and labs to improve 2) f/u in 3-5 days Plan discussed with: Patient, Other FARHEEN GARCIA [employer]ULTURE FARM MANAGER Jun 24, 2025 19:13
[2025-06-25] VITALS (8 sets, daily range): BP systolic 127–139; BP diastolic 61–72; PULSE 80–105; RESP 17–20; TEMP 97–98.6; O2SAT 95–100
[2025-06-25] MEDS: DOCUSATE SOD 100 MG CAP PO PRN (10:00)
--- NOTE | 2025-06-25 11:33 | DVHDS2 ---
Discharge Summary Date of Admission Jun 18, 2025 at 02:53 Labs/Diagnostic Data: Laboratory Results Test 06/25/25 06:19 06/22/25 07:22 06/21/25 11:50 06/18/25 18:14 POC Glucose 114 mg/dl (70-106) White Blood Count 6.6 10^3/uL (4.4-10.8) Red Blood Count 3.24 10^6/uL (4.5-5.90) Hemoglobin 7.9 g/dL (13.5-17.5) Hematocrit 25.9 % (41.0-53.0) Mean Corpuscular Volume 80.0 fL (80.0-100.0) Mean Corpuscular Hemoglobin 24.3 pg (28.0-32.0) Mean Corpuscular Hemoglobin Concent 30.4 g/dL (32.0-36.0) Red Cell Distribution Width 20.0 % (11.8-14.3) Platelet Count 298 10^3/uL (140-450) Mean Platelet Volume 7.2 fL (6.9-10.8) Neutrophils (%) (Auto) 71.0 % (37.0-80.0) Lymphocytes (%) (Auto) 14.7 % (10.0-50.0) Monocytes (%) (Auto) 7.7 % (0.0-12.0) Eosinophils (%) (Auto) 5.8 % (0.0-7.0) Basophils (%) (Auto) 0.8 % (0.0-2.0) Neutrophils # (Auto) 4.7 10 ^3/uL (1.6-8.6) Lymphocytes # (Auto) 1.0 10 ^3/uL (0.4-5.4) Monocytes # (Auto) 0.5 10 ^3/uL (0-1.3) Eosinophils # (Auto) 0.4 10 ^3/uL (0-0.8) Basophils # (Auto) 0.1 10 ^3/uL (0-0.2) Nucleated Red Blood Cells 0.0 % Sodium Level 140 mmol/L (136-145) Potassium Level 4.1 mmol/L (3.5-5.1) Chloride Level 105 mmol/L (98-107) Carbon Dioxide Level 24 mmol/L (20-31) Anion Gap 11 (5-15) Blood Urea Nitrogen 14 mg/dL (9-23) Creatinine 1.04 mg/dL (0.700-1.30) Glomerular Filtration Rate Calc 72 mL/min (>90) BUN/Creatinine Ratio 13.5 (10.0-20.0) Serum Glucose 84 mg/dL (74-106) Calcium Level 9.0 mg/dL (8.7-10.4) Iron Level 27 ug/dL (65-175) Total Iron Binding Capacity 302 ug/dL (250-425) Percent Iron Saturation 8.9 % (20-55) Total Bilirubin 0.3 mg/dL (0.2-1.0) Aspartate Amino Transferase (AST) 47 U/L (13-40) Alanine Aminotransferase (ALT) 27 U/L (7-40) Alkaline Phosphatase 67 U/L (46-116) Total Protein 7.4 g/dL (5.7-8.2) Albumin 3.9 g/dL (3.2-4.8) Hemoglobin A1c 5.7 % A1C (<5.7) Triglycerides Level 65 mg/dL (< 150) Cholesterol Level 121 mg/dL (< 200) LDL Cholesterol 28 mg/dL (< 100) HDL Cholesterol 70 mg/dL (40-59) Test 06/18/25 00:45 06/17/25 21:35 06/17/25 07:21 Urine Color Light-yellow (Yellow) Urine Clarity Clear (Clear) Urine pH 5.0 (5.0-9.0) Urine Specific [place] 1.016 (1.001-1.035) Urine Protein Negative (Negative) Urine Ketones Negative (Negative) Urine Blood Negative /uL (Negative) Urine Nitrite Negative (Negative) Urine Bilirubin Negative (Negative) Urine Urobilinogen Normal mg/dL (Negative) Urine Leukocyte Esterase Negative /uL (Negative) Urine RBC None seen /hpf (0 - 3) Urine Microscopic WBC < 1 /HPF (0-3) Urine Squamous Epithelial Cells Few /hpf (<5) Urine Bacteria None seen /hpf (None Seen) Urine Glucose Normal mg/dL (Normal) Urine Opiates Screen Neg (NEGATIVE) Urine Fentanyl Screen Neg (NEGATIVE) Urine Barbiturates Screen Neg (NEGATIVE) Urine Phencyclidine Screen Neg (NEGATIVE) Urine Amphetamines Screen Neg (NEGATIVE) Urine Benzodiazepines Screen Neg (NEGATIVE) Urine Cocaine Screen Neg (NEGATIVE) Urine Cannabinoids Screen Neg (NEGATIVE) Lactic Acid Level 1.3 mmol/L (0.4-2.0) Magnesium Level 1.8 mg/dL (1.6-2.6) Troponin I High Sensitivity 10 ng/L (</=54) B-Type Natriuretic Peptide 24.03 pg/mL (0-100) Lipase 38 U/L (12-53) Thyroid Stimulating Hormone (TSH) 0.91 uIU/mL (0.55-4.78) Plasma/Serum Blood Alcohol < 3.0 mg/dL (<10) Influenza Type A Antigen Negative (Negative) Influenza Type B Antigen Negative (Negative) SARS-CoV-2 Antigen (Rapid) Negative (NEGATIVE) Other Laboratory Tests 06/22/25 07:22 Discharge Instruct/Medications Scheduled Apixaban Base (Eliquis), 1 TAB PO BID, (Reported) Losartan Potassium (Losartan Potassium), 1 TAB PO DAILY, (Reported) Omeprazole (Omeprazole Dr), 1 CAP PO DAILY, (Reported) Discontinued Medications Amoxicillin Trihydrate (Amoxicillin), 1 CAP PO BID Doxycycline Monohydrate (Doxycycline Monohydrate), 1 CAP PO BID Discharge Statement: "Patient was advised to return to the ER or call 911 if any headaches, dizziness, shortness of breath, chest pain, abdominal pain, bleeding, fevers, or worsening of medical condition. Patient was counseled about treatment plan, medications, possible side effects, patientverbalized understanding. All questions were answered to the best of my ability. This discharge took greater then 30 minutes in planning, reviewing documentation, counseling the patient, and discussing with other team members." ASSESSMENT ASSESSMENT Assessment FARHEEN GARCIA NP Jun 25, 2025 11:33
[2025-06-25 19:20] LABS: Hemoglobin 8.4 g/dL (13.5-17.5); Nucleated Red Blood Cells % 0.2 %
[2025-06-25 19:21] LABS: Hematocrit 27.0 % (41.0-53.0); Mean Corpuscular Hemoglobin 24.8 pg (28.0-32.0); Mean Corpuscular Volume 80.3 fL (80.0-100.0)
--- NOTE | 2025-06-25 20:20 | DVHPN2 ---
Progress Note - Dictate Date Seen: Jun 25, 2025 Medical Necessity Reason Pt with a Central, PICC or Fol: No vital signs Vital Sign Date Time Temp Pulse Resp B/P (MAP) Pulse Ox O2 Delivery O2 Flow Rate FiO2 06/25/25 17:00 98.1 91 20 129/61 (83) 96 98.1 06/25/25 08:00 Nasal Cannula* 4 36 Total Intake and Output 06/24/25 06/24/25 06/25/25 15:00 23:00 07:00 Intake Total 110 ml 1330 ml 400 ml Output Total 300 ml 350 ml Balance 110 ml 1030 ml 50 ml medications Current Medications Medications Dose Ordered Sig/Randall Route Start Time Stop Time Status Last Admin Dose Admin Acetaminophen 325 mg Q4HP PRN PO 06/18/25 03:00 06/24/25 17:03 325 MG Ondansetron HCl 4 mg Q4HP PRN IV 06/18/25 03:00 Docusate Sodium 100 mg BIDPRN PRN PO 06/18/25 03:00 06/25/25 10:00 100 MG Zinc Sulfate 220 mg DAILY PO 06/18/25 10:00 06/25/25 09:59 220 MG Ascorbic Acid 500 mg BID PO 06/18/25 10:00 06/25/25 09:59 500 MG Multivitamins 1 tab DAILY PO 06/18/25 10:00 06/25/25 09:59 1 TAB Nitroglycerin 0.4 mg Q5MINP PRN SL 06/18/25 03:00 Apixaban 5 mg BID PO 06/18/25 22:00 06/25/25 09:59 5 MG Pantoprazole Sodium 40 mg DAILY IV 06/19/25 10:00 06/25/25 09:59 40 MG Hydralazine HCl 10 mg Q6HP PRN IV 06/18/25 16:45 06/22/25 21:38 10 MG Diagnostic Test (Pha) 1 strip ACHS 06/18/25 17:00 06/25/25 11:52 1 STRIP Insulin Human Regular HS SC 06/18/25 22:00 06/24/25 21:50 2 UNITS Insulin Human Regular AC SC 06/18/25 17:00 06/20/25 13:04 2 UNITS Dextrose 50 ml UD PRN IV 06/18/25 17:00 Trazodone HCl 50 mg HS PO 06/18/25 22:00 06/24/25 21:41 50 MG Hydromorphone HCl 0.25 mg Q4HP PRN IV 06/18/25 19:00 06/19/25 18:44 0.25 MG Haloperidol Lactate 2.5 mg Q8HP PRN IM 06/18/25 21:00 Ertapenem 1 gm/ Sodium Chloride 50 ml @ 100 mls/hr DAILY@1500 IV 06/20/25 15:00 06/25/25 15:05 100 MLS/HR Iron Sucrose 110 ml @ 110 mls/hr DAILY@1200 IV 06/22/25 12:00 06/26/25 12:59 06/25/25 12:41 110 MLS/HR objective General Appearance: alert, no distress HEENT: EOMI, PERRLA, normal external inspect of ears, no icterus, no nasal drainage Neck: no carotid bruit, no jugular venous distention (JVD), no lymphadenopathy Chest: normal thorax Respiratory: clear to auscultation, normal air movement Cardiovascular: regular rate and rhythm, no diastolic murmur, no jugular venous distention (JVD), no rub, no systolic murmur Abdominal: soft, no hepatomegaly, no mass, no splenomegaly, no tenderness Musculoskeletal: no joint tenderness, no swelling Extremities: normal pulses, no calf tenderness, no clubbing, no cyanosis, no edema Skin: no bruising, no jaundice, no rash Neurological: alert, No focal deficit laboratory and microbiology Laboratory Tests 06/25/25 18:54 06/22/25 07:22 Test 06/22/25 07:22 Range/Units Serum Glucose 84 74-106 mg/dL Problem List 1. Metabolic encephalopathy Monitor, IV fluids 2. Right BKA Monitor 3. DM II & hyperglycemia Monitor, insulin ss 4. CKD 3a Monitor, IV fluids, 5. Hx DVT right lower extremity Monitor 6. Anemia of chronic disease Monitor 7. COPD Monitor, IV abx Assessment/Plan Subjective Patient is A&O x 1. Objective Patient is still having some periods of confusion. Patient apparently gets more confused at nighttime. Possible sundowners and undiagnosed dementia. Patient has been on Invanz 1 g daily. Urine cultures are negative. MRI is negative for acute stroke. EEG shows some metabolic encephalopathy. Patient has been receiving trazodone at night. Plan Consult renal social worker. I did speak with patient's daughter Arianna. Discharge planning to [facility] for rehab. Continue physical therapy. Dietary Evaluation Review Comments: 1) Continue 45g CCHO cardiac diet 2) Encourage optimal PO intake 3) Follow-up with cardiology, pulmonology, and nephrology 4) Continue to monitor I&O, labs, and skin integrity Expected Outcomes/Goals: 1) appetite and labs to improve 2) f/u in 3-5 days Plan discussed with: Patient, Other FARHEEN GARCIA DORMITORY SUPERVISOR Jun 25, 2025 20:20
[2025-06-26 01:00] VITALS: BP 129/57; PULSE 96; RESP 18; TEMP 98.3; O2SAT 94
[2025-06-26 05:00] VITALS: BP 137/76; PULSE 98; RESP 18; TEMP 98.2; O2SAT 94
[2025-06-26 08:00] VITALS: PULSE 92
[2025-06-26 09:00] VITALS: BP 108/45; PULSE 87; RESP 18; TEMP 98.7; O2SAT 96
[2025-06-26 13:00] VITALS: BP 105/62; PULSE 87; RESP 16; TEMP 98.1; O2SAT 95
[2025-06-26 16:44] VITALS: BP 119/52; PULSE 109; RESP 17; TEMP 98.8; O2SAT 89
--- NOTE | 2025-06-27 11:07 | DVHPN2 ---
Progress Note - Dictate Date Seen: Jun 26, 2025 Medical Necessity Reason Pt with a Central, PICC or Fol: No Subjective Mr. Mcpherson is a 80 years old gentleman with a history of hypertension, diabetes, COPD, UTI, DVT, he was admitted on 06/17/2025 with a chief complaint of altered mental status. I have seen and examined the patient, I have talked to his nurse and sitter. He is awake but with eyes closed tightly, he only moves the arms when he is touched, he mumbles but not answer my questions properly, no following RN: Fluctuating mental status UDS, 06/18/2025: Negative Plasma alcohol, 06/17/2025: <1 Urinalysis, 06/18/2025: WBC: One, urine leukocyte esterase: Negative WBC/HB/PLT/MCV, 06/22/2025: 6.6/7.9/298/80 CMP, 06/21/2025: Unremarkable HGB A1c, 06/18/2025: 5.7 BUN/CR, 06/17/2025: 26/1.47 06/19/2025: 26/1.61, 06/21/2025: 17/1.12, 06/22/2025: 14/1.04 TG/HDL/LDL/HDL, 06/18/2025: 65/121/28/70 Vitamin B12, 06/04/2025: 672 TSH, 06/17/2025: 0.91 EEG, 06/23/2025: Mildly abnormal EEG Extremity venous study, 06/04/2025: 1. Nonocclusive thrombus in the right common femoral vein and proximal/mid superficial femoral vein. 2. No left femoropopliteal venous thrombosis Chest x-ray, 06/17/2025: NO ACUTE CARDIOPULMONARY PROCESS CT head, 06/04/2025: No CT evidence of an acute intracranial abnormality. Severe sequelae of chronic microvascular ischemic change and possible sequelae of loss of potter-white differentiation/infarct along bilateral parietal lobes CT head, 06/17/2025: 1. Artifact degraded evaluation without definite acute intracranial abnormality. Consider a repeat examination or MRI in further assessment as clinically indicated. 2. Age-related involutional changes. Chronic microvascular changes (poor quality) MRI head, 06/03/2025: Limited exam with no acute intracranial abnormality seen. No evidence for acute infarct. Mild brain volume loss. Advanced chronic small vessel ischemic change. 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 Bilateral cataract extraction. vital signs Vital Sign Date Time Temp Pulse Resp B/P (MAP) Pulse Ox O2 Delivery O2 Flow Rate FiO2 06/26/25 09:00 98.7 87 18 108/45 (66) 96 98.7 06/25/25 20:00 Nasal Cannula* 2 28 Total Intake and Output 06/25/25 06/25/25 06/26/25 15:00 23:00 07:00 Intake Total 110 ml 1120 ml 100 ml Output Total 475 ml 450 ml Balance 110 ml 645 ml -350 ml medications Current Medications Medications Dose Ordered Sig/Randall Route Start Time Stop Time Status Last Admin Dose Admin Acetaminophen 325 mg Q4HP PRN PO 06/18/25 03:00 06/24/25 17:03 325 MG Ondansetron HCl 4 mg Q4HP PRN IV 06/18/25 03:00 Docusate Sodium 100 mg BIDPRN PRN PO 06/18/25 03:00 06/25/25 10:00 100 MG Zinc Sulfate 220 mg DAILY PO 06/18/25 10:00 06/25/25 09:59 220 MG Ascorbic Acid 500 mg BID PO 06/18/25 10:00 06/25/25 22:35 500 MG Multivitamins 1 tab DAILY PO 06/18/25 10:00 06/25/25 09:59 1 TAB Nitroglycerin 0.4 mg Q5MINP PRN SL 06/18/25 03:00 Apixaban 5 mg BID PO 06/18/25 22:00 06/25/25 22:35 5 MG Pantoprazole Sodium 40 mg DAILY IV 06/19/25 10:00 06/26/25 09:44 40 MG Hydralazine HCl 10 mg Q6HP PRN IV 06/18/25 16:45 06/22/25 21:38 10 MG Diagnostic Test (Pha) 1 strip ACHS 06/18/25 17:00 06/26/25 06:22 1 STRIP Insulin Human Regular HS SC 06/18/25 22:00 06/24/25 21:50 2 UNITS Insulin Human Regular AC SC 06/18/25 17:00 06/20/25 13:04 2 UNITS Dextrose 50 ml UD PRN IV 06/18/25 17:00 Trazodone HCl 50 mg HS PO 06/18/25 22:00 06/25/25 22:35 50 MG Hydromorphone HCl 0.25 mg Q4HP PRN IV 06/18/25 19:00 06/19/25 18:44 0.25 MG Haloperidol Lactate 2.5 mg Q8HP PRN IM 06/18/25 21:00 Ertapenem 1 gm/ Sodium Chloride 50 ml @ 100 mls/hr DAILY@1500 IV 06/20/25 15:00 06/25/25 15:05 100 MLS/HR Iron Sucrose 110 ml @ 110 mls/hr DAILY@1200 IV 06/22/25 12:00 06/26/25 12:59 06/25/25 12:41 110 MLS/HR objective General: the patient is well developed and nourished. No acute distress. MUSCULOSKELETAL EXAM: Status post right BKA MENTAL STATUS: Subjective SPEECH, LANGUAGE, HIGHER CORTICAL FUNCTION: no aphasia or dysathria. CRANIAL NERVES: Pupils are equal, round and reactive. EOMs full and conjugate. Facial sensation intact in all three divisions bilaterally. Mandibular strength intact. Facial muscles symmetrical and strength intact. Tongue midline. No fasciculations or atrophy. SENSATION: Sensation to touch and pinprick is normal. MOTOR: Normal tone in the upper and lower extremity. Normal muscle bulk. No fasciculations. No abnormal movements or posturing. He moves the arms REFLEXES: Deep tendon reflexes are symmetrical. No pathological reflexes (status post right BKA CEREBELLAR/COORDINATION: Deferred GAIT/STATION: deferred laboratory and microbiology Laboratory Tests 06/25/25 18:54 06/22/25 07:22 Test 06/22/25 07:22 Range/Units Serum Glucose 84 74-106 mg/dL Problem List Altered mental status Metabolic encephalopathy Other etiology Chronic stroke (2019) DVT Assessment/Plan Monitoring Supportive treatment Telemetry Eliquis Haldol 2.5mg Q8h RPN for agitation Avoid Ativan or benzodiazepine Up to chair Physical therapy More recommendation per clinical course This medical document was created using an electronic medical record system with [employer] system. Although this document has been carefully reviewed, there may still be some phonetic and typographical errors. These areas are purely typographical due to imperfections of the software programs, and do not reflect any compromise in the patient's medical care. Prognosis poor Dietary Evaluation Review Comments: 1) Continue 45g CCHO cardiac diet 2) Encourage optimal PO intake 3) Follow-up with cardiology, pulmonology, and nephrology 4) Continue to monitor I&O, labs, and skin integrity Expected Outcomes/Goals: 1) appetite and labs to improve 2) f/u in 3-5 days Plan discussed with: Other Total Time (mins): 35 NIKOLAS HULL MD Jun 26, 2025 10:26
--- NOTE | 2025-06-27 11:10 | DVHPN2 ---
Progress Note - Dictate Date Seen: Jun 26, 2025 Medical Necessity Reason Pt with a Central, PICC or Fol: No vital signs Vital Sign Date Time Temp Pulse Resp B/P (MAP) Pulse Ox O2 Delivery O2 Flow Rate FiO2 06/26/25 09:00 98.7 87 18 108/45 (66) 96 98.7 06/26/25 08:00 Nasal Cannula* 2 28 Total Intake and Output 06/25/25 06/25/25 06/26/25 15:00 23:00 07:00 Intake Total 110 ml 1120 ml 100 ml Output Total 475 ml 450 ml Balance 110 ml 645 ml -350 ml medications Current Medications Medications Dose Ordered Sig/Randall Route Start Time Stop Time Status Last Admin Dose Admin Acetaminophen 325 mg Q4HP PRN PO 06/18/25 03:00 06/24/25 17:03 325 MG Ondansetron HCl 4 mg Q4HP PRN IV 06/18/25 03:00 Docusate Sodium 100 mg BIDPRN PRN PO 06/18/25 03:00 06/25/25 10:00 100 MG Zinc Sulfate 220 mg DAILY PO 06/18/25 10:00 06/25/25 09:59 220 MG Ascorbic Acid 500 mg BID PO 06/18/25 10:00 06/25/25 22:35 500 MG Multivitamins 1 tab DAILY PO 06/18/25 10:00 06/25/25 09:59 1 TAB Nitroglycerin 0.4 mg Q5MINP PRN SL 06/18/25 03:00 Apixaban 5 mg BID PO 06/18/25 22:00 06/25/25 22:35 5 MG Pantoprazole Sodium 40 mg DAILY IV 06/19/25 10:00 06/26/25 09:44 40 MG Hydralazine HCl 10 mg Q6HP PRN IV 06/18/25 16:45 06/22/25 21:38 10 MG Diagnostic Test (Pha) 1 strip ACHS 06/18/25 17:00 06/26/25 11:00 1 STRIP Insulin Human Regular HS SC 06/18/25 22:00 06/24/25 21:50 2 UNITS Insulin Human Regular AC SC 06/18/25 17:00 06/20/25 13:04 2 UNITS Dextrose 50 ml UD PRN IV 06/18/25 17:00 Trazodone HCl 50 mg HS PO 06/18/25 22:00 06/25/25 22:35 50 MG Hydromorphone HCl 0.25 mg Q4HP PRN IV 06/18/25 19:00 06/19/25 18:44 0.25 MG Haloperidol Lactate 2.5 mg Q8HP PRN IM 06/18/25 21:00 Ertapenem 1 gm/ Sodium Chloride 50 ml @ 100 mls/hr DAILY@1500 IV 06/20/25 15:00 06/25/25 15:05 100 MLS/HR Iron Sucrose 110 ml @ 110 mls/hr DAILY@1200 IV 06/22/25 12:00 06/26/25 12:59 06/25/25 12:41 110 MLS/HR objective General Appearance: alert, no distress HEENT: EOMI, PERRLA, normal external inspect of ears, no icterus, no nasal drainage Neck: no carotid bruit, no jugular venous distention (JVD), no lymphadenopathy Chest: normal thorax Respiratory: clear to auscultation, normal air movement Cardiovascular: regular rate and rhythm, no diastolic murmur, no jugular venous distention (JVD), no rub, no systolic murmur Abdominal: soft, no hepatomegaly, no mass, no splenomegaly, no tenderness Musculoskeletal: no joint tenderness, no swelling Extremities: normal pulses, no calf tenderness, no clubbing, no cyanosis, no edema Skin: no bruising, no jaundice, no rash Neurological: alert, No focal deficit laboratory and microbiology Laboratory Tests 06/25/25 18:54 06/22/25 07:22 Test 06/22/25 07:22 Range/Units Serum Glucose 84 74-106 mg/dL Problem List 1. Metabolic encephalopathy Monitor, IV fluids 2. Right BKA Monitor 3. DM II & hyperglycemia Monitor, insulin ss 4. CKD 3a Monitor, IV fluids, 5. Hx DVT right lower extremity Monitor 6. Anemia of chronic disease Monitor 7. COPD Monitor, IV abx Assessment/Plan Subjective Patient is very drowsy. Objective Trazodone was changed to as needed. Patient has been sleepy throughout the day most likely related to sleeping pill given at night. Patient has been working with physical therapy. I spoke with patient's daughter Arianna yesterday. Plan Continue PT. Encouraged oral diet and plan for discharge to [facility] for rehab. Dietary Evaluation Review Comments: 1) Continue 45g CCHO cardiac diet 2) Encourage optimal PO intake 3) Follow-up with cardiology, pulmonology, and nephrology 4) Continue to monitor I&O, labs, and skin integrity Expected Outcomes/Goals: 1) appetite and labs to improve 2) f/u in 3-5 days Plan discussed with: Patient, Other FARHEEN GARCIA NP Jun 26, 2025 12:01
--- NOTE | 2025-06-30 07:40 | DVHDS2 ---
Discharge Summary Date of Admission Jun 18, 2025 at 02:53 Date of Discharge: Jun 26, 2025 Admitting Diagnosis Metabolic encephalopathy, multifactorial with ANGEL, UTI and underlying presumed dementia and multiple recent hospitalizations Probable dementia Probable UTI (patient was on oral antibiotics prior to admission Acute kidney injury with vasomotor nephropathy HX Right AKA Physical deconditioning Anemia of chronic disease Labs/Diagnostic Data: Laboratory Results Test 06/26/25 17:22 06/25/25 18:54 06/22/25 07:22 06/21/25 11:50 POC Glucose 107 mg/dl (70-106) White Blood Count 8.2 10^3/uL (4.4-10.8) Red Blood Count 3.37 10^6/uL (4.5-5.90) Hemoglobin 8.4 g/dL (13.5-17.5) Hematocrit 27.0 % (41.0-53.0) Mean Corpuscular Volume 80.3 fL (80.0-100.0) Mean Corpuscular Hemoglobin 24.8 pg (28.0-32.0) Mean Corpuscular Hemoglobin Concent 30.9 g/dL (32.0-36.0) Red Cell Distribution Width 20.7 % (11.8-14.3) Platelet Count 287 10^3/uL (140-450) Mean Platelet Volume 7.5 fL (6.9-10.8) Neutrophils (%) (Auto) 73.3 % (37.0-80.0) Lymphocytes (%) (Auto) 12.6 % (10.0-50.0) Monocytes (%) (Auto) 10.1 % (0.0-12.0) Eosinophils (%) (Auto) 2.9 % (0.0-7.0) Basophils (%) (Auto) 1.1 % (0.0-2.0) Neutrophils # (Auto) 6.0 10 ^3/uL (1.6-8.6) Lymphocytes # (Auto) 1.0 10 ^3/uL (0.4-5.4) Monocytes # (Auto) 0.8 10 ^3/uL (0-1.3) Eosinophils # (Auto) 0.2 10 ^3/uL (0-0.8) Basophils # (Auto) 0.1 10 ^3/uL (0-0.2) Nucleated Red Blood Cells 0.2 % Creatinine 0.93 mg/dL (0.700-1.30) Glomerular Filtration Rate Calc 82 mL/min (>90) Sodium Level 140 mmol/L (136-145) Potassium Level 4.1 mmol/L (3.5-5.1) Chloride Level 105 mmol/L (98-107) Carbon Dioxide Level 24 mmol/L (20-31) Anion Gap 11 (5-15) Blood Urea Nitrogen 14 mg/dL (9-23) BUN/Creatinine Ratio 13.5 (10.0-20.0) Serum Glucose 84 mg/dL (74-106) Calcium Level 9.0 mg/dL (8.7-10.4) Iron Level 27 ug/dL (65-175) Total Iron Binding Capacity 302 ug/dL (250-425) Percent Iron Saturation 8.9 % (20-55) Total Bilirubin 0.3 mg/dL (0.2-1.0) Aspartate Amino Transferase (AST) 47 U/L (13-40) Alanine Aminotransferase (ALT) 27 U/L (7-40) Alkaline Phosphatase 67 U/L (46-116) Total Protein 7.4 g/dL (5.7-8.2) Albumin 3.9 g/dL (3.2-4.8) Test 06/18/25 18:14 06/18/25 00:45 06/17/25 21:35 06/17/25 07:21 Hemoglobin A1c 5.7 % A1C (<5.7) Triglycerides Level 65 mg/dL (< 150) Cholesterol Level 121 mg/dL (< 200) LDL Cholesterol 28 mg/dL (< 100) HDL Cholesterol 70 mg/dL (40-59) Urine Color Light-yellow (Yellow) Urine Clarity Clear (Clear) Urine pH 5.0 (5.0-9.0) Urine Specific Fenton 1.016 (1.001-1.035) Urine Protein Negative (Negative) Urine Ketones Negative (Negative) Urine Blood Negative /uL (Negative) Urine Nitrite Negative (Negative) Urine Bilirubin Negative (Negative) Urine Urobilinogen Normal mg/dL (Negative) Urine Leukocyte Esterase Negative /uL (Negative) Urine RBC None seen /hpf (0 - 3) Urine Microscopic WBC < 1 /HPF (0-3) Urine Squamous Epithelial Cells Few /hpf (<5) Urine Bacteria None seen /hpf (None Seen) Urine Glucose Normal mg/dL (Normal) Urine Opiates Screen Neg (NEGATIVE) Urine Fentanyl Screen Neg (NEGATIVE) Urine Barbiturates Screen Neg (NEGATIVE) Urine Phencyclidine Screen Neg (NEGATIVE) Urine Amphetamines Screen Neg (NEGATIVE) Urine Benzodiazepines Screen Neg (NEGATIVE) Urine Cocaine Screen Neg (NEGATIVE) Urine Cannabinoids Screen Neg (NEGATIVE) Lactic Acid Level 1.3 mmol/L (0.4-2.0) Magnesium Level 1.8 mg/dL (1.6-2.6) Troponin I High Sensitivity 10 ng/L (</=54) B-Type Natriuretic Peptide 24.03 pg/mL (0-100) Lipase 38 U/L (12-53) Thyroid Stimulating Hormone (TSH) 0.91 uIU/mL (0.55-4.78) Plasma/Serum Blood Alcohol < 3.0 mg/dL (<10) Influenza Type A Antigen Negative (Negative) Influenza Type B Antigen Negative (Negative) SARS-CoV-2 Antigen (Rapid) Negative (NEGATIVE) Other Laboratory Tests 06/25/25 18:54 06/22/25 07:22 Brief Hx & Hospital Course: This was an 80 year old man that was admitted for metabolic encephalopathy with underlying undiagnosed dementia. This was patient's third consecutive admission for urinary tract infection. Daughter stated that whenever patient was given IV antibiotics his condition improved, however he would be confused at home. Patient has a past medical history pertinent for right above knee amputation and is hard of hearing. He also has diabetes, type 2, HGB A1c contolled, and vasomotor nephropathy and anemia related to chronic kidney disease. Patient was started on IV antibiotics and initially IV hydration. Metabolic encephalopathy related to multiple factors, including undiagnosed dementia, presumed UTI, multiple recent hospitalizations, and vasomotor nephropathy. Patient was given one week of IV antibiotics and IV hydration. Kidney function returned to baseline. His medication did not improve. Antibiotic was stronger than prior hospitalizations. Urinalysis had no acute findings and HGB A1C determined that diabetes was controlled. Patient was seen by physical therapy and had a physical sitter at bedside. Patient was re-oriented throughout hospital stay. Minimal improvement noted after treatment. Goals of care was discussed with patient's daughter and she decided to send patient to rehab and that she would eventually transition him to assisted-living due to dementia. She stated she would have him follow up outpatient neurology for outpatient dementia testing. Operations or Procedures none Condition at Discharge: Fair Final Diagnosis/Problems List Metabolic encephalopathy UTI Dementia Anemia of chronic disease Right aka Deconditioned state Vasomotor nephropathy Discharge Disposition: [facility] Discharge Physician in charge at time of: Dr. Pham Will this Physician continue t: Yes Reason For Transfer: Rehab Discharge Instruct/Medications Diet: Consistent carbohydrate, Cardiac 2g Na,low cholest Activity: No Restrictions, As Tolerated Activity comment: Physical therapy as tolerated Follow Up/Referral: pcp 1 week Scheduled Apixaban Base (Eliquis), 1 TAB PO BID, (Reported) Losartan Potassium (Losartan Potassium), 1 TAB PO DAILY, (Reported) Omeprazole (Omeprazole Dr), 1 CAP PO DAILY, (Reported) Discontinued Medications Amoxicillin Trihydrate (Amoxicillin), 1 CAP PO BID Doxycycline Monohydrate (Doxycycline Monohydrate), 1 CAP PO BID 45 Discharge Statement: "Patient was advised to return to the ER or call 911 if any headaches, dizziness, shortness of breath, chest pain, abdominal pain, bleeding, fevers, or worsening of medical condition. Patient was counseled about treatment plan, medications, possible side effects, patientverbalized understanding. All questions were answered to the best of my ability. This discharge took greater then 30 minutes in planning, reviewing documentation, counseling the patient, and discussing with other team members." ASSESSMENT ASSESSMENT Assessment Metabolic encephalopathy Dementia Right aka probable UTI FARHEEN GARCIA TRANSFORMATION SPECIALIST Jun 30, 2025 07:40
--- NOTE | 2025-06-30 07:43 | DVHPN2 ---
Progress Note - Dictate Date Seen: Jul 26, 2025 Medical Necessity Reason Pt with a Central, PICC or Fol: No Subjective Subjective Patient is very drowsy. Objective Trazodone was changed to as needed. Patient has been sleepy throughout the day most likely related to sleeping pill given at night. Patient has been working with physical therapy. I spoke with patient's daughter Arianna yesterday. Plan Continue PT. Encouraged oral diet and plan for discharge to [facility] for rehab objective General Appearance: alert, no distress HEENT: EOMI, PERRLA, normal external inspect of ears, no icterus, no nasal drainage Neck: no carotid bruit, no jugular venous distention (JVD), no lymphadenopathy Chest: normal thorax Respiratory: clear to auscultation, normal air movement Cardiovascular: regular rate and rhythm, no diastolic murmur, no jugular venous distention (JVD), no rub, no systolic murmur Abdominal: soft, no hepatomegaly, no mass, no splenomegaly, no tenderness Musculoskeletal: no joint tenderness, no swelling Extremities: normal pulses, no calf tenderness, no clubbing, no cyanosis, no edema Skin: no bruising, no jaundice, no rash Neurological: alert, No focal deficit laboratory and microbiology Laboratory Tests 06/25/25 18:54 06/22/25 07:22 Test 06/22/25 07:22 Range/Units Serum Glucose 84 74-106 mg/dL Problem List 1. Metabolic encephalopathy Monitor, IV fluids 2. Right BKA Monitor 3. DM II & hyperglycemia Monitor, insulin ss 4. CKD 3a Monitor, IV fluids, 5. Hx DVT right lower extremity Monitor 6. Anemia of chronic disease Monitor 7. COPD Monitor, IV abx Assessment/Plan Subjective Patient is very drowsy. Objective Trazodone was changed to as needed. Patient has been sleepy throughout the day most likely related to sleeping pill given at night. Patient has been working with physical therapy. I spoke with patient's daughter Arianna yesterday. Plan Continue PT. Encouraged oral diet and plan for discharge to [facility] for rehab. Dietary Evaluation Review Recommendations by RD: Decrease Calorie Intake Comments: 1) Continue 45g CCHO cardiac diet 2) Encourage optimal PO intake 3) Follow-up with cardiology, pulmonology, and nephrology 4) Continue to monitor I&O, labs, and skin integrity Expected Outcomes/Goals: 1) appetite and labs to improve 2) f/u in 3-5 days Plan discussed with: Patient Total Time (mins): 30 FARHEEN GARCIA [employer]AR [employer]NER Jun 30, 2025 07:43
== END 2025-06-26 19:35 | DRG 70 ==
LOC: ER 19:54 → EDBD 19:54 → OVERFLOW 06-18 02:53 → TELE-CENTR 06-18 21:49
PROVIDERS: ADMIT Nurse Practitioner; ATTEND Nurse Practitioner
DX: G93.41 Metabolic encephalopathy (principal); N17.0 Acute kidney failure with tubular necrosis; D63.1 Anemia in chronic kidney disease; E11.65 Type 2 diabetes mellitus with hyperglycemia; N18.31 Chronic kidney disease, stage 3a; J44.9 Chronic obstructive pulmonary disease, unspecified; I12.9 Hypertensive chronic kidney disease with stage 1 through stage 4 chronic kidney disease, or unspecified chronic kidney disease; E86.0 Dehydration; E11.22 Type 2 diabetes mellitus with diabetic chronic kidney disease; Z20.822 Contact with and (suspected) exposure to COVID-19; F17.200 Nicotine dependence, unspecified, uncomplicated; Z98.42 Cataract extraction status, left eye; Z98.41 Cataract extraction status, right eye; Z89.511 Acquired absence of right leg below knee; Z79.2 Long term (current) use of antibiotics; Z86.718 Personal history of other venous thrombosis and embolism; Z86.73 Personal history of transient ischemic attack (TIA), and cerebral infarction without residual deficits; Z82.49 Family history of ischemic heart disease and other diseases of the circulatory system; Z83.3 Family history of diabetes mellitus
CPT/HCPCS: 36415; 70450; 70551; 71045; 80048; 80053; 80061; 80307; 80320; 81001; 82565; 82962; 83036; 83540; 83550; 83605; 83690; 83735; 83880; 84443; 84484; 85025; 87040; 87086; 87426; 87804; 93005; 95819; 96360; 96361; 96372; 97163; G0378; J1335; J1756; J1815; J2470; J2543